=== PATIENT | female | born 1950 | race Caucasian/White ===

== ENCOUNTER 2024-01-17 07:55 | Outpatient (OUT) | payer MEDICARE, OTHER, SELFPAY ==
--- NOTE | 2024-01-17 08:59 | CA_ITS ---
Patient Name: JASON SAGASTUME MR#: [id number] : 1950 Exam Date: 01/17/2024 Ordering Doctor: DR MERCED HENDERSON M.D. ECHOCARDIOGRAM REPORT PROCEDURE: CA ECHO DOPPLER COMPLETE INDICATIONS: Shortness of breath COMPARISON: None. DESCRIPTION: COMPLETE ECHOCARDIOGRAM Real-time transthoracic echocardiography with 2D, M-mode, spectral and color flow Doppler performed. QUALITY: Technical quality was good. LEFT VENTRICLE: Normal chamber size. Mild concentric left ventricular hypertrophy. LV EF: Global left ventricular systolic function is normal. Calculated left ventricular ejection fraction is 55%. No regional wall motion abnormalities. DIASTOLIC: Normal diastolic function. ATRIAL SEPTUM: Inadequately seen. LEFT ATRIUM: Mild dilatation. RIGHT ATRIUM: Mild dilatation. RIGHT VENTRICLE: Normal chamber size. Normal right ventricular systolic function. TRICUSPID VALVE: Normal mobility and thickness. No stenosis with trivial regurgitation. No evidence of pulmonary hypertension. RVSP 18mmHg MITRAL VALVE: Normal mobility and thickness. No evidence of mitral valve stenosis. There is no mitral annular calcification. Mild mitral regurgitation. AORTIC VALVE: Normal trileaflet appearance. Mildly calcified aortic valve. Normal leaflet mobility. No evidence of aortic valve stenosis. No aortic regurgitation. AORTIC ROOT: Normal diameter and appearance. PULMONIC VALVE: Normal thickness and mobility. No stenosis. Trivial regurgitation. PERICARDIUM: An anterior fat pad is seen. IVC: Collapses with inspirations. Normal size. CONCLUSION: 1. Global left ventricular systolic function is normal; visually estimated ejection fraction is 55 to 60% 2. Normal right ventricular size and systolic function 3. Mildly increased left ventricular wall thickness 4. Normal diastolic function 5. Biatrial enlargement 6. Mild mitral regurgitation Adult Echocardiography Procedure Report Left Ventricle LVEDD (3.7 - 5.6 cm): 4.65 cm LVESD (2.2 - 4.0 cm): 3.34 cm LVIVS thickness (0.6 - 1.2 cm): 1.36 cm LVPW thickness (0.5 - 1.0 cm): 1.18 cm e': 0.13 m/s E - e': 8.13 LVOT Max Gradient: 5.75 mm[Hg] LVOT Area (cm2): 1.20 m/s Peak Velocity (LVOT): 1.20 m/s Mean Velocity (LVOT): 0.81 m/s LVOT Diameter 1.95 cm Left Ventricular Ejection Fraction: 54.89 % Left Atrium LA Volume Index (2D A2C): 43.40 ml/m2 Left Atrium Systolic Dimension: 3.96 cm Mitral Valve MV E to A Ratio: 1.18 Mitral Valve A-Wave Peak Velocity: 0.91 m/s Mitral Valve E-Wave Peak Velocity: 1.08 m/s Right Ventricle RV Internal Diastolic Dimension: 3.69 cm Aorta AO Root Diam: 3.02 cm Ascending Ao Diam: 2.95 cm Aortic Valve AoV Area (Peak Valerio): 2.38 cm2, 2.38 cm2 AoV Area (VTI): 2.20 cm2, 2.20 cm2 Peak Velocity(Antegrade Flow): 1.50 m/s Peak Gradient(Antegrade Flow): 8.95 mm[Hg] Mean Velocity(Antegrade Flow): 1.05 m/s Mean Gradient(Antegrade Flow): 4.93 mm[Hg] Velocity Time Integral: 40.68 cm Tricuspid Valve Peak Velocity (Regurgitant Flow): 1.90 m/s, 1.91 m/s, 1.54 m/s Pulmonic Valve Mean Gradient: 2.33 mm[Hg], 2.17 mm[Hg] Mean Velocity: 0.72 m/s, 0.69 m/s Peak Velocity: 0.97 m/s Peak Gradient: 3.74 mm[Hg], 3.74 mm[Hg] Right Atrium Right Atrium Systolic Pressure: 61.78 ml, 61.78 ml Dictated by: Jami Angel M.D. on 01/19/2024 at 11:23 Approved by: Jami Angel M.D. on 01/19/2024 at 11:26
== END 2024-01-17 07:56 | disposition home or self-care (01) ==
LOC: CARD 07:56
PROVIDERS: PCP Nurse Practitioner; Visit Provider Internal Medicine Interventional Cardiology
DX: R06.02 Shortness of breath (principal)
CPT/HCPCS: 93306

== ENCOUNTER 2024-02-22 07:44 | Outpatient (OUT) | payer MEDICARE, OTHER, SELFPAY ==
--- NOTE | 2024-02-22 07:30 | NM_ITS ---
Patient Name: JASON SAGASTUME MR#: [id number] : 1950 Exam Date: 02/22/2024 Ordering Doctor: DR MERCED HENDERSON M.D. RADIOLOGY REPORT PROCEDURE: NM DOUGLAS PERF SPECT REST STR COMPARISON: None. INDICATIONS: DYSPNEA TECHNIQUE: Exam Description: Stress/Rest one day protocol gated SPECT Rest Imagin.3 mCi Tc-99m Cardiolite IV on 02/22/2024 Stress Imaging 30.6 mCi Tc-99m Cardiolite IV on 02/22/2024 Exercise Protocol: 0.4 mg Lexiscan given IV Heart Rate (bpm): Rest: 59 Max: 91 PMHR: 61 Blood Pressure: Rest: 124/68 Max: 124/68 Symptoms: Rest and peak stress ECG findings were pending and the exercise portion of the study was pending per attending physician Dr. MALLORY . For more details please see separate cardiac stress test report. FINDINGS: QUALITY OF STUDY: Excellent. PERFUSION DEFECT: None. LOCATION: N/A SIZE: N/A. SEVERITY: N/A. TYPE: N/A. WALL MOTION: Normal. LV SIZE: Normal. 63 mL. TID / TCD: None; 0.7 LVEF: Normal. Calculated EF 84%. SUMMARY: Myocardial perfusion imaging study is NORMAL. CONCLUSION: 1. Normal nuclear medicine myocardial perfusion scan. Dictated by: Genaro Garcia M.D. on 02/23/2024 at 10:53 Approved by: Genaro Garcia M.D. on 02/23/2024 at 10:55
--- NOTE | 2024-02-22 07:44 | PCN_ITS ---
CARDIAC STRESS TEST Requesting Physician:? Procedure Date:? 02/22/2024 INDICATION:? Dyspnea on exertion. METHODS:? After risks, benefits, and alternatives were explained, written informed consent was obtained.? The patient was brought to the stress lab in a resting and fasting state. She underwent a pharmacological stress test; Lexiscan 0.4 mg was infused intravenously.? She was monitored for the standard duration and transferred to the Radiology Department for nuclear imaging. There were no complications. FINDINGS: HEMODYNAMICS: Resting heart rate was 59 beats per minute, increasing to a maximum of 91 beats per minute.? Resting blood pressure was 124/68, decreasing to 108/60. ELECTROCARDIOGRAPHY:? Rest EKG:? Sinus rhythm, poor R-wave progression, abnormal EKG. During infusion and recovery:? No significant ST-T wave changes noted, infrequent premature atrial contractions seen. FINAL IMPRESSIONS: 1.? No ischemic EKG changes seen on Lexiscan pharmacological stress test. 2.? Nuclear images are to be read, interpreted and reported in a separate dictation. [facility]
--- OUTSIDE RECORDS SUMMARY | 2024-02-22 07:47 | XMS_ITS | CCD ---
Author Organization [facility] Care Team Providers Care Driller'S Assistant Name Role Phone CLAUDIA, DR CONNIE Saez Primary Care Unavailable TAYLOR, DR CONNIE Saez Admitting Unavailable TAYLOR, DR CONNIE Saez Attending Unavailable TAYLOR, DR CONNIE Saez Consulting Unavailable TAYLOR, DR CONNIE Saez Primary Care Unavailable BRITTANY, ANGELINE Consulting Unavailable BRITTANY, ANGELINE Admitting Unavailable BRITTANY, ANGELINE Attending Unavailable TAYLOR, DR CONNIE Saez Consulting Unavailable CLAUDIA, DR CONNIE Saez Admitting Unavailable TAYLOR, DR CONNIE Saez Attending Unavailable TAYLOR, DR CONNIE Saez Primary Care Unavailable ZIEBER, DR MITCHEL Jasso Consulting Unavailable TAYLOR, DR CONNIE aSez Primary Care Unavailable HAY, DR URBINA Admitting Unavailable HAY, DR URBINA Attending Unavailable HAY, DR URBINA Consulting Unavailable NICOLÁS, DR DAVID Jasso Consulting Unavailable CLAUDIA, DR CONNIE Saez Primary Care Unavailable MONZON, DR DAVID Jasso Admitting Unavailable MONZON, DR DAVID Jasso Attending Unavailable TAYLOR, DR CONNIE Saez Primary Care Unavailable MISC, DR PATEL Attending Unavailable MISC, DR PATEL Admitting Unavailable CLAUDIA, DR CONNIE Saez Primary Care Unavailable TAYLOR, DR CONNIE Saez Admitting Unavailable TAYLOR, DR CONNIE Saez Attending Unavailable TAYLOR, DR CONNIE Saez Consulting Unavailable TAYLOR, DR CONNIE Saez Primary Care Unavailable TAYLOR, DR CONNIE Saez Admitting Unavailable TAYLOR, DR CONNIE Saez Attending Unavailable TAYLOR, DR CONNIE Saez Consulting Unavailable SYLVIA, DR MARS Walters Consulting Unavailable CLAUDIA, DR CONNIE Saez Primary Care Unavailable CLAUDIA, DR CONNIE Saez Admitting Unavailable CLAUDIA, DR CONNIE Saez Attending Unavailable TAYLOR, DR CONNIE Saez Consulting Unavailable Toña Slaughter Unavailable Marko Flores Unavailable MD Connie Taylor Primary Care Provider MD Marko Flores Attending Provider Marko Flores Attending Unavailable Marko Flores Admitting Unavailable Connie Taylor Primary Care Unavailable Connie Taylor Primary Care Unavailable Tanvir Ron Attending Unavailable Tanvir Ron Admitting Unavailable MD Connie Taylor Primary Care Provider MD Tanvir Ron Attending Provider [phone] Akira, Livier L Referring Unavailable Akira, Livier L Attending Unavailable Akira, Livier L Admitting Unavailable Akira, Livier L Attending Unavailable Akira, Livier L Admitting Unavailable Akira, Livier L Attending Unavailable Akira, Livier L Attending Unavailable Akira, Livier L Admitting Unavailable Akira, Livier L Referring Unavailable Akira, Livier L Attending Unavailable Akira, Livier L Referring Unavailable Akira, Livier L Attending Unavailable Akira, Livier L Admitting Unavailable MOUKAMERCED MCKINNEY Attending Unavailable Allergies Allergy Classification Reported Allergen(s) Allergy Type Date of Onset Reaction(s) Facility (1 source) Aspirin Drug Allergy 11-26-20 15 [facility] Repository (4 sources) Penicillins; Translations: [PENICILLINS] Drug allergy (disorder) 03-17-20 14 Unknown Reaction [facility] Repository (1 source) Sulfonamides (Antibiotic) Drug allergy (disorder) 03-17-20 14 [facility] Repository (2 sources) Penicillin V Drug Allergy Unknown [facility] Other (2 sources) Sulfamethoxazole Drug Allergy Unknown [facility] Other (1 source) Penicillins (Antibiotic) Propensity to adverse reactions rash [facility] Other (1 source) Sulfonamides (Antibiotic) Propensity to adverse reactions hives [facility] Other (4 sources) Sulfonamides (Antibiotic); Translations: [Sulfa (Sulfonamide Antibiotics)] Allergy to substance 09-10-20 Unknown Reaction [facility] (1 source) Penicillins Drug allergy (disorder) 12-14-19 23 [facility] Repository (1 source) Adhesive Tape; Translations: [Tape] Propensity to adverse reactions (disorder) [facility] Repository (1 source) Penicillin; Translations: [penicillin] Drug Allergy [facility] Repository (1 source) Sulfonamides (Antibiotic); Translations: [sulfa drugs] Propensity to adverse reactions (disorder) [facility] Repository (1 source) Latex; Translations: [LATEX] Propensity to adverse reactions to drug (disorder) 09-10-20 [facility] Repository Medications Current Medications Medication Drug Class(es) Dates Sig (Normalized) Sig (Original) [id number] 200 actuat albuterol 0.09 mg/actuat metered dose inhaler (3 sources) beta2-Adrenergic Agonist Start: 11-24-2018 take 2 puff(s) by inhalation every four to six hours as needed ProAir HFA 108 (90 Base) MCG/ACT 2 puffs as needed Inhalation every 4-6 hrs Oct, Active amLODIPine 10 mg oral tablet (5 sources) Dihydropyridine Calcium Channel Suzette Start: 12-14-2022 take 10 mg by mouth once daily Amlodipine Active 10 MG PO Daily December 14, 2022 1:00am take 1 tablet by elke th every twenty-four hours amLODIPine Besylate 10 MG 1 tablet Orall y Once a day Active atorvastatin 20 mg oral tablet (5 sources) HMG-CoA Reductase Inhibitor Start: 12-14-2022 take 20 mg by mouth once daily Atorvastatin Active 20 MG PO Daily December 14, 2022 1:00am take 1 tablet by elke th every twenty-four hours Atorvastatin Calcium 20 MG 1 tablet Oral ly Once a day Active furosemide 20 mg oral tablet (5 sources) Loop Diuretic Start: 12-14-2022 take 20 mg by mouth once daily Furosemide Active 20 MG PO Daily December 14, 2022 1:00am take 1 tablet by elke th every twenty-four hours Furosemide 20 MG 1 tablet Orally Once a day Active hydroCHLOROthiazide 12.5 mg oral tablet (5 sources) Thiazide Diuretic Start: 12-14-2022 take 12.5 mg by mouth once daily Hydrochlorothiazide Active 12.5 MG PO Daily December 14, 2022 1:00am take 1 capsule by mo uth every twenty-four hours hydroCHLOROthiazide 12.5 MG 1 capsule in the morning Orally Once a day Active hydroCHLOROthiazide 12.5 mg / losartan potassium 50 mg oral tablet (3 sources) Thiazide Diuretic, Angiotensin 2 Receptor Suzette take 1 tablet by mouth every twenty-four hours Losartan Potassium-HCTZ 50-12.5 MG 1 tablet Orally Once a day Active losartan potassium 50 mg oral tablet (2 sources) Angiotensin 2 Receptor Suzette Start: 2022 take 50 mg by mouth once daily Losartan Active 50 MG PO Daily December 14, 2022 1:00am 24 hr metFORMIN hydrochloride 500 mg extended release oral tablet (5 sources) Biguanide Start: 2022 take 500 mg by mouth once daily Metformin Active 500 MG PO Daily December 14, 2022 1:00am take 1 tablet by elke th every twenty-four hours metFORMIN HCl 500 MG 1 tablet with a meal Orally Once a day Active 24 hr metoprolol succinate 50 mg extended release oral tablet (5 sources) beta-Adrenergic Suzette Start: 12-14-2022 take 50 mg by mouth once daily Metoprolol Succinate Active 50 MG PO Daily December 14, 2022 1:00am take 1 tablet by mouth once pritesh y Toprol XL 50 MG 1 tablet Orally Once a day for 30 day(s) Active SITagliptin 100 mg oral tablet (5 sources) Dipeptidyl Peptidase 4 Inhibitor Start: 12-14-2022 take 1 tablet by mouth once daily Sitagliptin Phosphate (Januvia) 100 mg tablet Active 100 MG PO Daily December 14, 2022 1:00am take 1 tablet by elke th every twenty-four hours Januvia 100 MG 1 tablet Orally Once a day Active Problems Active Problems Problem Classification Problem Date Documented Date Episodic/Chronic Abdominal pain (4 sources) Unspecified abdominal pain; Translations: [UNSPECIFIED ABDOMINAL PAIN] Onset: 12-24-2021 Episodic Calculus of urinary tract (1 source) Unspecified renal colic; Translations: [UNSPECIFIED RENAL COLIC] Onset: 12-26-2021 Episodic Cardiac and circulatory congenital anomalies (2 sources) Congenital insufficiency of aortic valve; Translations: [Congenital insufficiency of aortic valve] Onset: 01-10-2024 Chronic Congestive heart failure; nonhypertensive (1 source) Heart failure, unspecified; Translations: [HEART FAILURE UNSPECIFIED] Onset: 09-15-2021 Chronic Coronary atherosclerosis and other heart disease (2 sources) Atherosclerotic heart disease of [place] coronary artery without angina pectoris; Translations: [Atherosclerotic heart disease of [place] coronary artery without angina pectoris] Onset: 01-10-2024 Chronic Diabetes mellitus with complications (1 source) Type 2 diabetes mellitus with hyperglycemia; Translations: [TYPE 2 DM W/HYPERGLYCEMIA] Onset: 09-15-2021 Chronic Disorders of lipid metabolism (2 sources) Mixed hyperlipidemia; Translations: [Mixed hyperlipidemia] Onset: 09-10-2022 Chronic Diverticulosis and diverticulitis (3 sources) Diverticular disease; Translations: [Diverticulosis of intestine, part unspecified, without perforation or abscess without bleeding] Chronic Essential hypertension (6 sources) Essential (primary) hypertension; Translations: [ESSENTIAL PRIMARY HYPERTENSION] Onset: 05-08-2021 Chronic Other and unspecified benign neoplasm (3 sources) Polyp of colon; Translations: [Polyp of colon] Episodic Other and unspecified benign neoplasm (1 source) History of polyp of colon; Translations: [Personal history of colonic polyps] Episodic Other and unspecified benign neoplasm (1 source) Personal history of colonic polyps Episodic Other lower respiratory disease (2 sources) Shortness of breath; Translations: [Shortness of breath] Onset: 01-10-2024 Episodic Other nutritional; endocrine; and metabolic disorders (3 sources) Body mass index 30+ - obesity; Translations: [Body mass index (BMI) 30.0-30.9, adult] Chronic Rehabilitation care; fitting of prostheses; and adjustment of devices (3 sources) Follow-up status; Translations: [Encounter for fitting and adjustment of other specified devices] Chronic Sprains and strains (5 sources) Unspecified sprain of left wrist, subsequent encounter; Translations: [Strain of unspecified muscle, fascia and tendon at wrist and hand level, left hand, subsequent encounter] Onset: 12-09-2021 Episodic Unclassified (2 sources) CONTACT W/AND (SUSP) EXPOS COVID-19; Translations: [CONTACT W/AND (SUSP) EXPOS COVID-19] Onset: 08-15-2021 Unclassified (1 source) Encounter for screening for malignant neoplasm of colon; Translations: [Encounter for screening for malignant neoplasm of colon] Onset: 12-14-2022 Viral infection (4 sources) COVID-19; Translations: [COVID-19] Onset: 08-18-2021 Past or Other Problems Problem Classification Problem Date Documented Da te Episodic/Chronic Genitourinary symptoms and ill-defined conditions (3 sources) Other polyuria; Translations: [OTHER POLYURIA] Onset: 09-13-2021 Episodic Immunizations and screening for infectious disease (1 source) Encounter for immunization; Translations: [ENCOUNTER FOR IMMUNIZATION] Onset: 08-29-2021 Episodic Malaise and fatigue (1 source) Other fatigue; Translations: [OTHER FATIGUE] Onset: 05-13-2021 Episodic Other aftercare (1 source) Other halfway (current) drug therapy; Translations: [OTH SIGNAL MANAGER CURRENT DRUG THERAPY] Onset: 09-15-2021 Episodic Other aftercare (1 source) terminal make up operator (current) use of oral hypoglycemic drugs; Translations: [INTERMEDIATE USE ORAL HYPOGLYCEMIC DX] Onset: 09-15-2021 Episodic Other connective tissue disease (2 sources) Pain in left hand Onset: 10-29-2021 Resolved: 12-03-2021 Episodic Other injuries and conditions due to external causes (2 sources) Other injury of unspecified body region, initial encounter Onset: 10-29-2021 Resolved: 12-03-2021 Episodic Other lower respiratory disease (3 sources) Cough; Translations: [COUGH] Onset: 08-13-2021 Episodic Other lower respiratory disease (1 source) Other nonspecific abnormal finding of lung field; Translations: [OTH NONSPECIFIC ABN FIND LNG FIELD] Onset: 08-15-2021 Episodic Other lower respiratory disease (4 sources) Other forms of dyspnea; Translations: [OTHER FORMS OF DYSPNEA] Onset: 05-30-2021 Episodic Other non-traumatic joint disorders (2 sources) Pain in left wrist Onset: 10-29-2021 Resolved: 12-03-2021 Episodic Unclassified (1 source) CONTACT W/AND (SUSP) EXPOS COVID-19; Translations: [CONTACT W/AND (SUSP) EXPOS COVID-19] Onset: 08-11-2021 Results Test Name Value Interpretation Reference Range Facility Orders Onlyon 01-25-2024 Orders Only [id number] Daya Ramsay 1950 F Date Provider Department Center 01/25/2024 LIZBET ASHBY Family History Problem Relation Age of Onset Aortic aneurysm Father Other Sister Aortic aneurysm Paternal Grandmother Other Son Family Status - Relation Status Age at Father Sister Paternal Grandmother Son Other Normal [facility] Echocardiographyon Echocardiography [id number] #1.00TIFF Normal [facility] Office Visiton 01-10-2024 Follow-up visit [id number] Daya Ramsay 1950 F Date Provider Department Center 01/10/2024 367-MERCED HENDERSON DEBORAH Gibbs Family History Problem Relation Age of Onset Aortic aneurysm Father Other Sister Aortic aneurysm Paternal Grandmother Other Son Family Status - Relation Status Age at Father Sister Paternal Grandmother Son Other Level of Service:81792 SD OFFICE/OUTPATIENT ESTABLISHED MOD MDM 30 MIN Normal [facility] Reminderson 11-08-2023 Reminders - From: Livier Dockery To: [facility] - Clinical; Sent: 11/08/2023 08:18:23 EST Show up: 11/08/2023 08:19:00 EST Subject: Ambulatory Reminder Due Date/Time: 11/09/2023 08:18:00 EST Mammogram is normal Results: Date Result Type Result Name 11/06/2023 11:15 Radiology MA Mamm Screen w/CAD if perf and 3D Daniel pt notified mammogram was normal Normal [facility] Reminders - From: Livier Dockery To: [facility] - Clinical; Sent: 11/08/2023 08:22:02 EST Show up: 11/08/2023 08:22:00 EST Subject: Ambulatory Reminder Due Date/Time: 11/09/2023 08:21:00 EST Let Daya know her dexa scan showed osteoporosis. I will send fosamax to pharmacy of choice. Just let me know where she wants it sent. Thanks Results: Date Result Type Result Name 11/07/2023 13:01 Radiology BD Bone Density DEXA - From: Birdie Florentino ([facility] - Clinical) To: Livier Dockery; Sent: 11/08/2023 11:48:02 EST Show up: 11/08/2023 11:47:00 EST Subject: RE: Ambulatory Reminder pt notified of message below, she would like medication sent to [facility] Destini Cardozo [facility] BD Bone Density DEXAon 11-07 BD Bone Density DEXA Exam Date/Time: 11/05/2023 10:45 EST Reason for Exam: E28.39;Post menopausal Report IMPRESSION: The bone density may measurements of the right femoral neck indicate OSTEOPOROSIS. This places the patient at a significant increased risk for fracture. Recommend follow-up exam in one year, sooner as clinically necessary. CLINICAL HISTORY: bone density evaluation COMPARISON: NONE. FINDINGS: Bone density measurements for the Left femoral neck are BMD 0.750g/cm2 Tscore -2.1 Age-matched Z score -0.8, Osteopenia Bone density measurements for the Right femoral neck are BMD 0.666g/cm2 Tscore -2.5 Age-matched Z score -1.3, Osteoporosis Bone density measurements for the Lumbar spine are BMD 0.980g/cm2 Tscore -1.7 Age-matched Z score -0.7, Osteopenia FRAX SCORE Not calculated due to a T score of less than -2.5 Note World Health Organization definition of osteoporosis and osteopenia for women: Normal = T score at or above -1.0 SD Osteopenia = T score between -1.0 and -2.5 SD Osteoporosis = T score at or below -2.5 SD Treatment recommendations per The Bone Health and Osteoporosis Foundation (BHOF): Consider initiating pharmacologic treatment in postmenopausal women and men \X2265\ 50 years of age who have the following: \X2013\Primary fracture prevention: \X25CB\T-score \X2264\ \X2212\ 2.5 at the femoral neck, total hip, lumbar spine, 33% radius (some uncertainty with existing data) by DXA. \X25CB\Low bone mass (osteopenia: T-score between \X2212\ 1.0 and \X2212\ 2.5) at the femoral neck or total hip by DXA with a 10-year hip fracture risk \X2265\ 3% or a 10-year major osteoporosis-related fracture risk \X2265\ 20% (i.e., clinical vertebral, hip, forearm, or proximal humerus) based on the US-adapted FRAX\XAE\ Report model. \X2013\Secondary fracture prevention: \X25CB\Fracture of the hip or vertebra regardless of BMD [4, 5]. \X25CB\Fracture of proximal humerus, pelvis, or distal forearm in persons with low bone mass (osteopenia: T-score between \X2212\ 1.0 and \X2212\ 2.5). The decision to treat should be individualized in persons with a fracture of the proximal humerus, pelvis, or distal forearm who do not have osteopenia or low BMD [12, 13]. Ordering Provider: Livier Champion FINAL REPORT Dictated: 11/07/2023 12:58 pm Loyd Martinez MD, V. Signed (Electronic Signature): 11/07/2023 12:58 pm Signed by: Loyd Martinez MD, V. Transcribed by: DAWN Technologist: BARBIE Cardozo [facility] MA Mamm Screen w/CAD if perf and 3D Bilon 11-06-2023 MA Mamm Screen w/CAD if perf and 3D Daniel Exam Date/Time: 11/05/2023 10:53 EST Reason for Exam: Z12.31;Screening Report IMPRESSION: BIRADS 1 NEGATIVE, NORMAL INTERVAL FOLLOW-UP Follow-up: 12 MONTH RECALL Density: Scattered tissue. Vascular calcifications: Absent. EXAM: MA Mamm Screen w/CAD if perf and 3D Daniel DATE: 11/05/2023 10:30 AM CLINICAL HISTORY: Screening, Z12.31. COMPARISONS: 10/20/2022, 10/17/2021, 11/10/2019, and 03/01/2013. TECHNIQUE: Routine full-field digital mammograms and 3D breast tomosynthesis of both breasts were obtained. FINDINGS: There are no developing masses, suspicious microcalcifications, or areas of architectural distortion identified on the current study. No significant changes are identified from the prior studies, given differences in technique and positioning. Dense Breast: No. CAD analysis was performed and used in the interpretation. Board Certified Radiologists. Accredited by the ACR and FDA. MAMMOGRAPHY IS VERY IMPORTANT TO YOUR HEALTH. THE CURRENT [employer] GUIDELINES RECOMMENDS ANNUAL MAMMOGRAPHY BEGINNING AT AGE 40. THIS FACILITY UTILIZES A REMINDER SYSTEM TO ENSURE ALL PATIENTS RECEIVE REMINDER NOTIFICATIONS AT THE APPROPRIATE TIME BASED ON THE RECOMMENDATIONS OF THIS EXAM. Report Ordering Provider: Livier Champion FINAL REPORT Dictated: 11/06/2023 11:12 am Lalit Walker MD Signed (Electronic Signature): 11/06/2023 11:12 am Signed by: Lalit Walker MD Transcribed by: DAWN Technologist: KARIS Assessment: BI-RADS Category 1-Negative Recommendation: Normal interval follow-up Normal [facility] Consent for Treatmenton 12-0 Consent for Treatment [id number] #1.00TIFF Normal [facility] Family Medicine Office/Clini c Noteon 10-19-2023 Family Medicine Office/Clinic Note Chief Complaint Subsequent Medicare Wellness Visit Review of Systems PHQ Score Initial Depression Screen Score: 0 SCORE Physical Exam Vitals & Measurements HR: 67(Peripheral) BP: 130/70 SpO2: 95% HT: 169 cm HT: 67 in WT: 88.1 kg WT: 193.82 lb BMI: 30.85 Assessment/Plan 1. Annual visit for general adult medical examination without abnormal findings (Z00.00: Encounter for general adult medical examination without abnormal findings) The patient was given a customized and personalized print out of all the current AHRQ USPSTF?s recommendations for preventative services and all current CDC recommended immunizations, relevant risk recommendations and the following patient brochures were given. Reviewed Medicare preventative services checklist. CDC-Falls Prevention and home safety screening reviewed. Patient denies any falls in last 12 months, voices no worry about falling, exhibits no problems with sitting, standing, or ambulation. Pt voices understanding with keeping walk way area free of clutter to prevent tripping and/or falling. [place] Advance Directives reviewed, does not wish to receive further information at this time. Patient denies any problems with ADL?s and Instrumental ADL?s. Cognitive screening completed with memory and clock face drawing, no deficits noted. Immunization Record reviewed with the patient. Discussed Shingrix vaccine with educational handout and availability. COVID vaccines have been administered, immunization record is up to date. Allergies and medications reviewed and up to date. Patient denies concerns with taking medication as prescribed, reviewed OTC medications with patient, medication list up to date. Blood tests were reviewed: are up to date Colonoscopy up to date. DEXA scan and Mammogram are scheduled. Reviewed concerns with bladder control over past 6 months with no concerns. Reviewed pain symptoms with patient: pain symptoms denied. Reviewed all outside providers that patient follows. Last visit summary notes available in chart and/or have been requested. Follow up scheduled, follow up not yet scheduled AWV has been scheduled, to be scheduled at later time Medicare provides yearly screening for alcohol and depression concerns. This is completed during our Medicare Wellness visit for those who do not have a current diagnosis of depression or concerns with alcohol use. I spent a total of 17 minutes on this date of service which included preparing to see the patient, face to face patient care, completing clinical documentation, obtaining and/or reviewing separately obtained history, counseling and educating the patient with handouts. Explanations were provided with reviewing questionnaires. AUDIT risk assessment screening completed, risk score 0, with patient denying concerns with use. Completed PHQ-2 risk assessment for depression with risk score 0, negative findings. Patient has been reminded to notify the provider if there would be a change or concerns with symptoms with fear, unable to sleep, worrying too much or feeling down and/or sad with lost of interest with daily activities. Will continue to monitor with screening yearly during Medicare wellness visits. 2. Ovarian failure (E28.39: Other primary ovarian failure) Reviewed recommended bone mineral density testing for women who are 65 years of age or older. Educational handout for Bone Health reviewed and provided to the patient during today's Medicare Wellness visit. Medicare recommends testing every 5 years if results are WNL and every 2 years if results shows low bone mass. This is a deterioration of bone structure and can increase the risk of a fracture with falls. Eating a well-balanced diet with plenty of Calcium and Vitamin D will help to protect your bones. Daily weight-bearing physical activity can help build strong bones, improve bone amounts, and may reduce the risk of weakening of bones (Osteoporosis) later in life. Dexa scan ordered and scheduled. 3. Type 2 diabetes mellitus (E11.9: Type 2 diabetes mellitus without complications) Patient is compliant on current DM medications: Metformin and Januvia. Currently on an ARB therapy, does monitors BS at home: DM stoplight handout reviewed with s/s to monitor for and report to PCP. Discussed ADA dietary recommendations with low carbs and reduce sugar intake. Patient encouraged to increase daily physical activity, adequate water intake and maintain a healthy weight. Pt follows up with PCP with yearly DM foot checks,will be due at next OV. Reminded patient to perform at home foot checks to prevent future complications, wash with soap and water, apply lotion to bilateral feet and in-between toes to prevent dryness and/or cracking. Wear proper fitting shoes and loose fitting socks and/or hose. Follows up with yearly DM eye exams, last visit notes available in chart for review. 4. Hyperlipidemia (E78.5: Hyperlipidemia, unspecified) Reviewed healthy lifestyle with low fat diet and exercise regimen. When you (more content not included)... [facility] Comment on above: Result Comment: Elec tronically Signed By: Livier Dockery\.br\Date and Time Signed: 10/19/23 12:44 EST\.br\Electronically Co-Signed By: Fred Navas\.br\Date and Time Co-Signed: 10/14/23 16:21 EST [place] 10-15-2023 Screens [id number] 9#1.00TIFF [facility] Ambulatory Visit Summaryon 1 12-14-2022 Ambulatory Visit Summary DAYA RAMSAY Oziel :1950 Visit Date:10/14/2023 Ambulatory Visit Instructions Your Diagnosis Annual visit for general adult medical examination without abnormal findings Ovarian failure Type 2 diabetes mellitus Hyperlipidemia Hypertension Cough BMI 30.0-30.9,adult Your Care Team Attending Physician - Livier Dockery Primary Care Physician - Livier Dockery This Is Your Medications List [facility] Prescription (ACCU-CHEK GUIDE TEST STRIP) albuterol amlodipine (amLODIPine 10 mg Tab) atorvastatin (atorvastatin 20 mg Tab) azithromycin (azithromycin 250 mg Tab) benzonatate (benzonatate 200 mg oral capsule) budesonide (Pulmicort Flexhaler 90 mcg/inh inhalation powder) furosemide (furosemide 20 mg Tab) hydrochlorothiazide (hydrochlorothiazide 12.5 mg Tab) loratadine (loratadine 10 mg Tab) losartan (losartan 50 mg Tab) metformin (MetFORMIN (Eqv-Glucophage XR) 500 mg oral tablet, extended release) methylPREDNISolone (Medrol 4 mg Tab) sitagliptin (Januvia 100 mg Tab) Procedures Performed Appendectomy, section, Colonoscopy, Knee, Nasal deviation, bone, Total abdominal colectomy with ileoproctostomy. Discharge Vitals Heart Rate (Peripheral) 67 Blood Pressure 130/70 Height 169 cm Height 67 in Weight 88.1 kg Weight 193.82 lb BMI 30.85 What to do next Scheduled Follow-Up Appointments Wednesday 10:30 AM EST Where: [facility] Wednesday 12:00 PM EST Where: [facility] Mammography You Need to Complete the Following [facility] DEXA, 11/05/23, Routine, Order for Future Visit, Transport Mode: Ambulatory, Reason: Post menopausal, Reason: E28.39, Ovarian failure Normal [facility] Patient Educationon 10-14-20 Patient Education Caregiving Fall Prevention in the Home, Adult Falls can cause injuries and affect people of all ages. There are many simple things that you can do to make your home safe and to help prevent falls. Ask for help when making these changes, if needed. What actions can I take to prevent falls? General instructions ? Use good lighting in all rooms. Replace any light bulbs that burn out, turn on lights if it is dark, and use night-lights. ? Place frequently used items in tylh-dg-kkfxh places. Lower the shelves around your home if necessary. ? Set up furniture so that there are clear paths around it. Avoid moving your furniture around. ? Remove throw rugs and other tripping hazards from the floor. ? Avoid walking on wet floors. ? Fix any uneven floor surfaces. ? Add color or contrast paint or tape to grab bars and handrails in your home. Place contrasting color strips on the first and last steps of staircases. ? When you use a stepladder, make sure that it is completely opened and that the sides and supports are firmly locked. Have someone hold the ladder while you are using it. Do not climb a closed stepladder. ? Know where your pets are when moving through your home. What can I do in the bathroom? ? Keep the floor dry. Immediately clean up any water that is on the floor. ? Remove soap buildup in the tub or shower regularly. ? Use nonskid mats or decals on the floor of the tub or shower. ? Attach bath mats securely with double-sided, nonslip rug tape. ? If you need to sit down while you are in the shower, use a plastic, nonslip stool. ? Install grab bars by the toilet and in the tub and shower. Do not use towel bars as grab bars. What can I do in the bedroom? ? Make sure that a bedside light is easy to reach. ? Do not use oversized bedding that reaches the floor. ? Have a firm chair that has side arms to use for getting dressed. What can I do in the kitchen? ? Clean up any spills right away. ? If you need to reach for something above you, use a sturdy step stool that has a grab bar. ? Keep electrical cables out of the way. ? Do not use floor slovenian or wax that makes floors slippery. If you must use wax, make sure that it is non-skid floor wax. What can I do with my stairs? ? Do not leave any items on the stairs. ? Make sure that you have a light switch at the top and the bottom of the stairs. Have them installed if you do not have them. ? Make sure that there are handrails on both sides of the stairs. Fix handrails that are broken or loose. Make sure that handrails are as long as the staircases. ? Install non-slip stair treads on all stairs in your home. ? Avoid having throw rugs at the top or bottom of stairs, or secure the rugs with carpet tape to prevent them from moving. ? Choose a carpet design that does not hide the edge of steps on the stairs. ? Check any carpeting to make sure that it is firmly attached to the stairs. Fix any carpet that is loose or worn. What can I do on the outside of my home? ? Use bright outdoor lighting. ? Regularly repair the edges of walkways and driveways and fix any cracks. ? Remove high doorway thresholds. ? Trim any shrubbery on the main path into your home. ? Regularly check that handrails are securely fastened and in good repair. Both sides of all steps should have handrails. ? Install guardrails along the edges of any raised decks or porches. ? Clear walkways of debris and clutter, including tools and rocks. ? Have leaves, snow, and ice cleared regularly. ? Use sand or salt on walkways during winter months. ? In the garage, clean up any spills right away, including grease or oil spills. What other actions can I take? ? Wear closed-toe shoes that fit well and support your feet. Wear shoes that have rubber soles or low heels. ? Use mobility aids as needed, such as canes, walkers, scooters, and crutches. ? Review your medicines with your health care provider. Some medicines can cause dizziness or changes in blood pressure, which increase your risk of falling. Talk with your health care provider about other ways that you can decrease your risk of falls. This may include working with a physical therapist or customer service trainer to improve your strength, balance, and endurance. Where to find more information ? Centers for Disease Control and Prevention, STEADI: www.cdc.gov ? National [place] on Aging: www.margaret.nih.gov Contact a health care provider if: ? You are afraid of falling at home. ? You feel weak, drowsy, or dizzy at home. ? You fall at home. Summary ? There are many simple things that you can do to make your home safe and to help prevent falls. ? Ways to make your home safe include removing tripping hazards and installing grab bars in the bathroom. ? Ask for help when making these changes in your home. This information is not intended to replace advice given to you by your health ca (more content not included)... [facility] Consent for Treatmenton 09-29 Consent for Treatment [phone] 31 [id number] #1.00TIFF [facility] Reminderson 10-13-2023 Reminders - From: Livier Dockery To: [facility] - Clinical; Sent: 10/13/2023 14:17:52 EST Show up: 10/13/2023 14:18:00 EST Subject: Ambulatory Reminder Due Date/Time: 10/14/2023 14:17:00 EST Chest x ray negative. does not have pneumonia. is she feeling any better yet? Results: Date Result Type Result Name 10/13/2023 13:56 Radiology XR Chest 2 Views - From: Birdie Florentino (B - Clinical) To: Livier Dockery; Sent: 10/13/2023 15:16:46 EST Show up: 10/13/2023 15:16:00 EST Subject: RE: Ambulatory Reminder pt states yesterday she felt pretty good today she hasn't felt good chest feels tight couldn't stop coughing she has used her daily inhaler and her rescue inhaler. Normal [facility] XR Chest 2 Viewson 3 XR Chest 2 Views Exam Date/Time: 10/13/2023 08:14 EST Reason for Exam: Z00.00;Cough Report IMPRESSION: NO EVIDENCE OF ACTIVE CHEST DISEASE. CLINICAL HISTORY: Cough, Z00.00. COMMENT: The heart is normal in size. There is calcification at the aortic arch. The mediastinum is otherwise unremarkable. There is a calcified granuloma in the right lung laterally. There is eventration of the right diaphragm anteriorly. No infiltration nor pleural effusion is evident. Ordering Provider: Livier Champion FINAL REPORT Dictated: 10/13/2023 1:53 pm Nico Soler M.D. Signed (Electronic Signature): 10/13/2023 1:53 pm Signed by: Nico Soler M.D. Transcribed by: DAWN Technologist: BARBIE Technical Comments Radiation Dose: Ka,r in mGy = na DAP = na Normal [facility] Ambulatory Visit Summaryon 1 12-11-2022 Ambulatory Visit Summary DAYA RAMSAY :1950 Visit Date:10/11/2023 Ambulatory Visit Instructions Your Diagnosis Wellness examination Hypertension Hyperlipidemia Type 2 diabetes mellitus Breast cancer screening by mammogram Cough Wheezing Your Care Team Attending Physician - Livier Dockery Primary Care Physician - Livier Dockery This Is Your Medications List Misc Prescription (ACCU-CHEK GUIDE TEST STRIP) amlodipine (amLODIPine 10 mg Tab) atorvastatin (atorvastatin 20 mg Tab) azithromycin (azithromycin 250 mg Tab) benzonatate (benzonatate 200 mg oral capsule) budesonide (Pulmicort Flexhaler 90 mcg/inh inhalation powder) furosemide (furosemide 20 mg Tab) hydrochlorothiazide (hydrochlorothiazide 12.5 mg Tab) loratadine (loratadine 10 mg Tab) losartan (losartan 50 mg Tab) metformin (MetFORMIN (Eqv-Glucophage XR) 500 mg oral tablet, extended release) methylPREDNISolone (Medrol 4 mg Tab) sitagliptin (Januvia 100 mg Tab) Procedures Performed Colonoscopy. Discharge Vitals Heart Rate (Peripheral) 70 Respiratory Rate 18 Blood Pressure 124/88 Height 170 cm Height 67 in Weight 86.9 kg Weight 191.18 lb BMI 30.07 What to do next Scheduled Follow-Up Appointments 2022 3:30 PM EST Where: [facility] Invalid Interpretation Code Breast cancer screening by mammogram, pp_set_radio logy_subspec ialty, Required & Missing, [facility]\.br\ XR Chest 2 Views, 10/11/23, Routine, Order for future visit, Transport Mode: Ambulatory, Reason: Cough, No, Breast cancer screening by mammogram [facility] Auto Diffon 10-11-2023 Basophils/100 WBC (Bld) 0.5 % Normal 0.0-2.0 F [facility] Comment on above: Order Comment: Order Added by Discern Expert. Performed By: #### 2 643091, 2531639, 6713916, 500626724, 9881902, 6118292, 02389231 ####[facility] [address] [place] [address] Basophils/Leukocytes Auto (Bld) [Pure # fraction] 0.0 E9/L Normal 0.0-0.2 [facility] Comment on above: Order Comment: Order Added by Discern Expert. Performed By: #### 2 278927, 6154408, 8945157, 806477904, 2430200, 4491239, 33229234 ####[facility] [address] [place] [address] Eosinophils/100 WBC (Bld) 2.1 % Normal 0.0-8.0 [facility] Comment on above: Order Comment: Order Added by Discern Expert. Performed By: #### 2 889656, 5195054, 2484756, 628086691, 5583614, 8855849, 10609237 ####[address] [place] [address] Eosinophils/Leukocytes Auto (Bld) [Pure # fraction] 0.2 E9/L Normal 0.0-0.5 [facility] Comment on above: Order Comment: Order Added by Discern Expert. Performed By: #### 2 127958, 1809546, 7657452, 509973135, 9263265, 1706206, 13504357 ####[address] [place] [address] Lymphocytes/100 WBC (Bld) 22.1 % Normal 14.0-50.0 [facility] Comment on above: Order Comment: Order Added by Tosha Expert. Performed By: #### 2 857931, 8669302, 9292565, 004082769, 4949770, 7750210, 81689526 ####[address] [address] Lymphocytes/Leukocytes Auto (Bld) [Pure # fraction] 1.7 E9/L Normal 1.0-4.0 [facility] Comment on above: Order Comment: Order Added by Tosha Expert. Performed By: #### 2 644156, 9789370, 8447173, 300003002, 0677013, 4838664, 80002944 ####[address] [place] [address] Monocytes/100 WBC (Bld) 7.8 % Normal 4.0-14.0 [facility] Comment on above: Order Comment: Order Added by Tosha Expert. Performed By: #### 2 459147, 2347891, 0363867, 287435658, 7558853, 5848607, 20684213 ####[address] [place] [address] Monocytes/Leukocytes Auto (Bld) [Pure # fraction] 0.6 E9/L Normal 0.2-1.0 [facility] Comment on above: Order Comment: Order Added by Discern Expert. Performed By: #### 2 099785, 9298066, 2171180, 894226064, 0113491, 5141632, 24998097 ####[facility] [address] [place] [address] Neutrophils/100 WBC (Bld) 67.5 % Normal 36.0-75.0 [facility] Comment on above: Order Comment: Order Added by Discern Expert. Performed By: #### 2 085109, 2295844, 1680953, 649031206, 0746456, 4346887, 09319188 ####[facility] [address] [place] [address] Neutrophils/Leukocytes Auto (Bld) [Pure # fraction] 5.3 E9/L Normal 2.0-7.5 [facility] Comment on above: Order Comment: Order Added by Discern Expert. Performed By: #### 2 658643, 5471550, 5815631, 831192727, 5776992, 1781647, 73541291 ####[facility] [address] [place] [address] CBC w/ Auto Diffon 3 Erythrocyte distribution width (RBC) [Ratio] 14.5 % High 10.9-14.2 [facility] Comment on above: Performed By: #### 2 155196, 4869530, 6801091, 886385679, 8536877, 0747597, 03594003 ####[facility] [address] [place] [address] Hematocrit (Bld) [Volume fraction] 42.8 % Normal 34.0-46.0 [facility] Comment on above: Performed By: #### 2 325409, 4673564, 6478713, 921720348, 0756976, 1886524, 18343386 ####[facility] [address] [place] [address] Hemoglobin (Bld) [Mass/Vol] 14.2 g/dL Normal 12.0-16.0 [facility] Comment on above: Performed By: #### 2 116370, 8254381, 8068689, 970941761, 1061009, 4930460, 73078386 ####[address] [place] [address] MCH (RBC) [Entitic mass] 29.9 pg Normal 27.0-34.0 [facility] Comment on above: Performed By: #### 2 945598, 2049349, 9756403, 697269692, 9214929, 9532400, 48597681 ####[facility] [address] [place] [address] MCHC (RBC) [Mass/Vol] 33.2 g/dL Normal 31.4-36.0 [facility] Comment on above: Performed By: #### 2 735943, 2992223, 6333801, 555212716, 3030480, 3496479, 80976016 ####[address] [address] MCV (RBC) [Entitic vol] 89.9 fL Normal 80.0-100.0 F [facility] Comment on above: Performed By: #### 2 278043, 9478395, 7969747, 107136551, 3146473, 3266012, 47179849 ####[address] [address] Platelet mean volume (Bld) [Entitic vol] 8.8 fL Normal 6.4-10.8 [facility] Comment on above: Performed By: #### 2 401223, 0140901, 8944577, 930717217, 4861493, 5400498, 17076268 ####[address] [address] Platelets (Bld) [#/Vol] 269.0 E9/L Normal 150.0-500.0 [facility] Comment on above: Performed By: #### 2 803278, 5476997, 9764880, 216700976, 7765545, 4152325, 96825095 ####[facility] [address] [place] [address] RBC (Bld) [#/Vol] 4.8 E12/L Normal 4.3-5.9 [facility] Comment on above: Performed By: #### 2 276978, 9383323, 7849775, 982514837, 9003723, 2611232, 18773444 ####[address] [place] [address] WBC corrected for nucl RBC Auto (Bld) [#/Vol] 7.9 E9/L Normal 4.0-11.0 [facility] Comment on above: Performed By: #### 2 918649, 2185789, 7977659, 349454435, 2360782, 5899767, 71015869 ####[address] [address] CMPon 10-11-2023 Albumin [Mass/Vol] 3.9 g/dL Normal 3.3-5.0 [facility] Comment on above: Performed By: #### 2 756151, 5001130, 8881997, 804529497, 7194011, 5425169, 21570148 ####[address] [address] Albumin/Globulin (S) [Mass conc ratio] 1.4 Normal 1.1-2.2 [facility] Comment on above: Performed By: #### 2 236304, 9259869, 3546793, 578470412, 5035771, 9253050, 90498751 ####[address] [place] [address] ALP [Catalytic activity/Vol] 70 Int._Unit/L Normal 21-98 [facility] Comment on above: Performed By: #### 2 673057, 9072074, 9471948, 956400453, 6427426, 6133471, 31524243 ####[address] [address] ALT No additional P-5'-P [Catalytic activity/Vol] 20 Int._Unit/L Normal 6-46 [facility] Comment on above: Performed By: #### 2 451367, 0188600, 3566677, 839066349, 4312507, 8713063, 21738498 ####[facility] [address] [place] [address] Anion gap [Moles/Vol] 14 mmol/L Normal 6-16 [facility] Comment on above: Performed By: #### 2 405649, 1924533, 7419486, 682585251, 7610038, 8945399, 55420308 ####[facility] [address] [place] [address] AST [Catalytic activity/Vol] 21 Int._Unit/L Normal 5-43 [facility] Comment on above: Performed By: #### 2 119199, 3777347, 3478016, 841210190, 8079892, 4034638, 62130802 ####[facility] [address] [place] [address] Bilirubin [Mass/Vol] 0.5 mg/dL Normal 0.0-1.1 [facility] Comment on above: Performed By: #### 2 648733, 8094117, 3809413, 679648387, 6585187, 4766797, 85207030 ####[facility] [address] [place] [address] Calcium [Mass/Vol] 9.8 mg/dL Normal 8.9-11.1 [facility] Comment on above: Performed By: #### 2 152352, 1609659, 0960527, 565226925, 0074400, 6078675, 46803596 ####[facility] [address] [place] [address] Chloride [Moles/Vol] 104 mmol/L Normal 101-111 [facility] Comment on above: Performed By: #### 2 843509, 6261970, 6648158, 082702874, 5448359, 0874956, 59170398 ####[facility] [address] [place] [address] CO2 [Moles/Vol] 26 mmol/L Normal 21-31 [facility] Comment on above: Performed By: #### 2 007551, 5087757, 6725365, 080548160, 0817176, 5925910, 37321157 ####[facility] [address] [place] [address] Creatinine [Mass/Vol] 0.9 mg/dL Normal 0.5-1.3 [facility] Comment on above: Performed By: #### 2 404385, 8652677, 4109968, 394846521, 8558115, 2811667, 21736161 ####[facility] [address] [place] [address] Globulin (S) [Mass/Vol] 2.7 g/dL Normal 1.4-4.0 [facility] Comment on above: Performed By: #### 2 020696, 2273926, 0284444, 314034345, 5365853, 3526628, 21105252 ####[facility] [address] [place] [address] Glucose [Mass/Vol] 112 mg/dL Normal 55-199 [facility] Comment on above: Result Comment: If t his glucose result represents a fasting glucose, interpretation should refer to the following reference range: 55-99 mg/dL Performed By: #### 2 581758, 7508731, 3142630, 762769756, 4849114, 5900881, 19154399 ####[facility] [address] [place] [address] Potassium [Moles/Vol] 4.5 mmol/L Normal 3.5-5.3 [facility] Comment on above: Performed By: #### 2 687560, 3557252, 6299434, 411891904, 5154018, 4495333, 29187522 ####[facility] [address] [place] [address] Protein [Mass/Vol] 6.6 g/dL Normal 6.0-7.8 [facility] Comment on above: Performed By: #### 2 478254, 7884069, 3462344, 869360893, 3881151, 1977981, 65098253 ####[facility] [address] [place] [address] Sodium [Moles/Vol] 139 mmol/L Normal 135-145 [facility] Comment on above: Performed By: #### 2 627732, 7699570, 9598918, 155797724, 2931005, 0344235, 57678248 ####[facility] [address] [place] [address] Urea nitrogen [Mass/Vol] 27 mg/dL High 5-21 [facility] Comment on above: Performed By: #### 2 026633, 2228966, 5148906, 022079250, 1481679, 1049503, 70275531 ####[facility] [address] [place] [address] Urea nitrogen/Creatinine [Mass ratio] 30 No Units High 10-20 [facility] Comment on above: Performed By: #### 2 627476, 6139156, 2902651, 152030145, 6475618, 1589997, 44733877 ####[facility] [address] [place] [address] Family Medicine Office/Clini c Noteon 10-11-2023 Family Medicine Office/Clinic Note HPI Staff Pt is a 73 yo f presenting to establish care with Livier today. Establish Care: History: Last provider: Claudia Any recent labs: no Health Maintenance UTD: Colonoscopy: Last year [facility] [place] Mammogram: 10/20/22 Pelvic/Pap: Aged out Flu- DUE - refused. Acute: Current issues/complaints: Asthma, Needs mammo ordered. HTN. States her daughter is concerned about a cough, pt says it is daily. Said she coughed up a large green mucosa on Wednesday. Bronchial cough. History of Present Illness pt presents today to establish care/wellness Review of Systems PHQ Score Initial Depression Screen Score: 0 SCORE ROS - Provider Constitutional: no fever, no chills, no sweats, no fatigue Respiratory: no shortness of breath, yes cough, no orthopnea, yes wheezing. Cardiovascular: no chest pain, no palpitations, no edema. Neurologic: no headache, no dizziness, no numbness, no weakness. Physical Exam Vitals & Measurements HR: 70(Peripheral) RR: 18 BP: 124/88 SpO2: 97% HT: 67 in HT: 170 cm WT: 86.9 kg WT: 191.18 lb BMI: 30.07 General: alert, no acute distress ENMT: oral mucosa moist, no pharyngeal erythema or exudate Cardiovascular: regular rate and rhythm, normal peripheral perfusion Respiratory: Lungs expiratory wheezes, respirations non labored lung sounds tight Extremities: no deformity, no trauma Neurological: oriented x 4, LOC appropriate for age, CN II-XII intact, motor strength equal & normal bilaterally, speech normal Assessment/Plan 1. Wellness examination (Z00.00: Encounter for general adult medical examination without abnormal findings) pt presents today to establish care/wellness visit. has not had labs in over a year. will draw labs today. mammogram also ordered. all questions answered. RTC as needed Ordered: azithromycin, = 1 packet(s), Oral, As Directed, as directed on package labeling, X 5 day(s), # 6 tab(s), Refills(s) 0, Pharmacy: [facility]/pharmacy #[id number], 170, cm, 10/11/23 10:43:00 EST, Height/Length Dosing, 86.9, kg, 10/11/23 10:43:00 EST, Weight Dosing benzonatate, 200 mg = 1 cap(s), Oral, TID, X 7 day(s), # 21 cap(s), Refills(s) 0, Pharmacy: [facility]/pharmacy #[id number], 170, cm, 10/11/23 10:43:00 EST, Height/Length Dosing, 86.9, kg, 10/11/23 10:43:00 EST, Weight Dosing budesonide, 1 inh, Inhalation, BID, 1 EA, Refill(s) 11, [facility]/pharmacy #[id number], 170, cm, 10/11/23 10:43:00 EST, Height/Length Dosing, 86.9, kg, 10/11/23 10:43:00 EST, Weight Dosing methylPREDNISolone, = 1 packet(s), Oral, As Directed, as directed on package labeling, X 6 day(s), # 21 tab(s), Refills(s) 0, Pharmacy: [facility]/pharmacy #[id number], 170, cm, 10/11/23 10:43:00 EST, Height/Length Dosing, 86.9, kg, 10/11/23 10:43:00 EST, Weight Dosing CBC w/ Auto Diff Comprehensive Metabolic Panel HgbA1c Lipid Panel MA Mamm Screen w/CAD if perf and 3D Daniel Thyroid Stimulating Hormone 2. Hypertension (I10: Essential (primary) hypertension) BP at goal. pt does not need refills Ordered: azithromycin, = 1 packet(s), Oral, As Directed, as directed on package labeling, X 5 day(s), # 6 tab(s), Refills(s) 0, Pharmacy: [facility]/pharmacy #[id number], 170, cm, 10/11/23 10:43:00 EST, Height/Length Dosing, 86.9, kg, 10/11/23 10:43:00 EST, Weight Dosing benzonatate, 200 mg = 1 cap(s), Oral, TID, X 7 day(s), # 21 cap(s), Refills(s) 0, Pharmacy: [facility]/pharmacy #[id number], 170, cm, 10/11/23 10:43:00 EST, Height/Length Dosing, 86.9, kg, 10/11/23 10:43:00 EST, Weight Dosing budesonide, 1 inh, Inhalation, BID, 1 EA, [id number], cm, 10/11/23 10:43:00 EST, Height/Length Dosing, 86.9, kg, 10/11/23 10:43:00 EST, Weight Dosing methylPREDNISolone, = 1 packet(s), Oral, As Directed, as directed on package labeling, X 6 day(s), # 21 tab(s), Refills(s) 0, Pharmacy: [facility]/pharmacy #[id number], 170, cm, 10/11/23 10:43:00 EST, Height/Length Dosing, 86.9, kg, 10/11/23 10:43:00 EST, Weight Dosing CBC w/ Auto Diff Comprehensive Metabolic Panel HgbA1c Lipid Panel Thyroid Stimulating Hormone 3. Hyperlipidemia (E78.5: Hyperlipidemia, unspecified) lipid panel drawn in office today Ordered: azithromycin, = 1 packet(s), Oral, As Directed, as directed on package labeling, X 5 day(s), # 6 tab(s), Refills(s) 0, [facility] [id number] 170, cm, 10/11/23 10:43:00 EST, Height/Length Dosing, 86.9, kg, 10/11/23 10:43:00 EST, Weight Dosing benzonatate, 200 mg = 1 cap(s), Oral, TID, X 7 day(s), # 21 cap(s), Refills(s) 0, [id number] 170, cm, 10/11/23 10:43:00 EST, Height/Length Dosing, 86.9, kg, 10/11/23 10:43:00 EST, Weight Dosing budesonide, 1 inh, Inhalation, BID, 1 EA, Refill(s) 11, [id number] 170, cm, 10/11/23 10:43:00 EST, Height/Length Dosing, 86.9, kg, 10/11/23 10:43:00 EST, Weight Dosing methylPREDNISolone, = 1 packet(s), Oral, As Directed, as directed on package labeling, X 6 day(s), # 21 tab(s), Refills(s) 0, [id number], 170, cm, 10/11/23 10:43:00 EST, Height/Length Dosing, 86.9, kg, 10/11/23 10:43:00 EST, Weight Dosing CBC w/ Auto Diff (more content not included)... Normal [facility] Comment on above: Result Comment: Elec tronically Signed By: Livier Dockery\.br\Date and Time Signed: 10/11/23 11:17 EST [id number] 10-11-2023 HbA1c (Bld) [Mass fraction] 6.1 % High <=5.9 [facility] Comment on above: Performed By: #### 2 [id number], [id number], 2545240, [id number], [id number], [id number], [id number] ####[facility] [address] [place] [address] Lipid Panelon 10-11-2023 Cholesterol [Mass/Vol] 165 mg/dL Normal 120-200 [facility] Comment on above: Performed By: #### 2 [id number], [id number], 6412509, [id number], [id number], [id number], [id number] ####[facility] [address]N[facility] [address] Cholesterol in HDL [Mass/Vol] 49 mg/dL Invalid Interpretation Code [facility] Comment on above: Result Comment: HDL > or equal to 60 mg/dL: Low cardiovascular risk HDL < 40 mg/dL : High cardiovascular risk Performed By: #### 2 [id number], 3365502, 2527379, [id number], 8167029, 3016561, [id number] ####[facility] [address] AveNun[facility] [address] Cholesterol in LDL [Mass/Vol] 106 mg/dL Normal <=129 [facility] Comment on above: Performed By: #### 2 368271, 5852545, 8140664, [id number], 8723823, 6264768, [id number] ####[facility] [address] [place] [address] Cholesterol in VLDL [Mass/Vol] 15 mg/dL Normal 7-40 [facility] Comment on above: Performed By: #### 2 131904, 7162298, 3291153, [id number], 6566632, 9332736, [id number] ####[facility] [address] AveNun[facility] [address] Triglyceride [Mass/Vol] 77 mg/dL Normal <=149 F [facility] Comment on above: Performed By: #### 2 937129, 1132797, 1806256, [id number], 3753777, 5504404, [id number] ####[facility] [address] [place] [address] TSHon 10-11-2023 TSH Qn 0.30 m[IU]/L Low 0.34-5.60 [facility] Comment on above: Performed By: #### 2 947819, 8200884, 0621884, [id number], 1061289, 6196260, [id number] ####[facility] [address] [place] [address] eGFRon 10-11-2023 GFR/1.73 sq M.predicted among non-blacks MDRD (S/P/Bld) [Vol rate/Area] 68 mL/min/1.73 m2 Normal >=59 [facility] Comment on above: Order Comment: Order added by Discern Expert. Result Comment: Public Health Professor len kidney disease could be indicated at eGFR's of less than 60 mL/min/1.73m2. Kidney failure is indicated at less than 15 mL/min/1.73m2. Performed By: #### 2 730329, 3642641, 9584426, [id number], 8277267, 0299846, [id number] ####[facility] [address] [place] [address] Alanine aminotransferase [En zymatic activity/volume] in Serum or PlasmaOrdered By: Mary Jane Perez on 04-28-2023 ALT [Catalytic activity/Vol] 15 U/L 7-52 [facility] Albumin [Mass/volume] in Ser um or Plasma by Bromocresol green (BCG) dye binding methoOrdered By: Mary Jane Perez on 04-28-2023 Albumin BCG dye [Mass/Vol] 3.9 g/dL 3.5-5.7 [facility] Alkaline phosphatase [Enzyma tic activity/volume] in Serum or PlasmaOrdered By: Mary Jane Perez on 04-28-2023 ALP [Catalytic activity/Vol] 68 U/L 34-104 [facility] Aspartate aminotransferase [ Enzymatic activity/volume] in Serum or PlasmaOrdered By: Mary Jane Perez on 04-28-2023 AST [Catalytic activity/Vol] 15 U/L 13-39 [facility] Basophils Auto (Bld) [#/Vol] Ordered By: Mary Jane Perez on 04-28-2023 Basophils (Bld) [#/Vol] 0.1 10*3/uL 0.0-0.2 [facility] Basophils/100 WBC Auto (Bld) Ordered By: Mary Jane Perez on 04-28-2023 Basophils/100 WBC (Bld) 1.0 % . F [facility] Bilirubin.total [Mass/volume ] in Serum or PlasmaOrdered By: Mary Jane Perez on 04-28-2023 Bilirubin [Mass/Vol] 0.6 mg/dL 0.3-1.0 [facility] Calcium [Mass/volume] in Ser um or PlasmaOrdered By: Mary Jane Perez on 04-28-2023 Calcium [Mass/Vol] 9.3 mg/dL 8.6-10.3 [facility] Carbon dioxide, total [Moles /volume] in Serum or PlasmaOrdered By: Mary Jane Perez on 04-28-2023 CO2 [Moles/Vol] 28.6 mmol/L 21.0-31.0 [facility] Chloride [Moles/volume] in S juan pablo or PlasmaOrdered By: Mary Jane Perez on 04-28-2023 Chloride [Moles/Vol] 106 mmol/L 98-107 [facility] Cholesterol [Mass/volume] in Serum or PlasmaOrdered By: Mary Jane Perez on 04-28-2023 Cholesterol [Mass/Vol] 151 mg/dL 140-200 [facility] Comment on above: Chol less than 200 m g/dl low riskChol 201-239 mg/dl borderline riskChol 240 mg/dl and greater high risk Cholesterol in LDL Calc [Mas s/Vol]Ordered By: Mary Jane Perez on 04-28-2023 Cholesterol in LDL [Mass/Vol] 91 mg/dL 0-100 [facility] Comment on above: LDL ATP III CLASSIFI CATIONLDL less than 100 mg/dL OptimalLDL 100-129 mg/dL Near or above optimalLDL 130-159 mg/dL Borderline highLDL 160-189 mg/dL HighLDL greater than 189 mg/dL Very high Cholesterol in VLDL Calc [Ma ss/Vol]Ordered By: Mary Jane Perez on 04-28-2023 Cholesterol in VLDL [Mass/Vol] 16 mg/dL [facility] Complete Blood Count Auto Di ffon 04-28-2023 Basophils (Bld) [#/Vol] 0.1 10*3/uL Normal 0.0-0.2 [facility] Comment on above: Result Comment: PERF ORMED BY: [place] [address] PATHOLOGIST TOBACCO CHECKOUT CLERK GRIS CANELA M.D. Performed By: #### C BC #### [address] Basophils/100 WBC (Bld) 1.0 % Normal . F [facility] Comment on above: Performed By: #### C BC #### [address] Eosinophils (Bld) [#/Vol] 0.2 10*3/uL Normal 0.0-0.45 [facility] Comment on above: Performed By: #### C BC #### [address] Eosinophils/100 WBC (Bld) 2.5 % Normal . [facility] Comment on above: Performed By: #### C BC #### [address] Erythrocyte distribution width (RBC) [Ratio] 13.9 % Normal 11.9-15.3 [facility] Comment on above: Performed By: #### C BC #### [address] Hematocrit (Bld) [Volume fraction] 39.8 % Normal 34.0-46.4 [facility] Comment on above: Performed By: #### C BC #### [address] Hemoglobin (Bld) [Mass/Vol] 13.3 g/dL Normal 11.8-15.4 [facility] Comment on above: Performed By: #### C BC #### [address] Lymphocytes (Bld) [#/Vol] 1.9 10*3/uL Normal 1.00-4.8 [facility] Comment on above: Performed By: #### C BC #### [address] Lymphocytes/100 WBC (Bld) 27.5 % Normal . [facility] Comment on above: Performed By: #### C BC #### [address] MCH (RBC) [Entitic mass] 29.3 pg Normal 24.7-34.3 [facility] Comment on above: Performed By: #### C BC #### [address] MCV (RBC) [Entitic vol] 87.7 fL Normal 80-100 F [facility] Comment on above: Performed By: #### C BC #### [address] Mean Corpuscular HGB Conc 33.5 g/dL Normal 32.0-35.0 [facility] Comment on above: Performed By: #### C BC #### [address] Monocytes (Bld) [#/Vol] 0.5 10*3/uL Normal 0.0-0.8 [facility] Comment on above: Performed By: #### C BC #### [address] Monocytes/100 WBC (Bld) 7.8 % Normal . F [facility] Comment on above: Performed By: #### C BC #### [address] Neutrophils (Bld) [#/Vol] 4.2 10*3/uL Normal 1.8-7.7 [facility] Comment on above: Performed By: #### C BC #### [address] Neutrophils/100 WBC (Bld) 61.2 % Normal . [facility] Comment on above: Performed By: #### C BC #### [address] NRBC% 0.1 /100{WBC} Normal 0-0.5 [facility] Comment on above: Performed By: #### C BC #### [facility] [address] Platelet mean volume (Bld) [Entitic vol] 8.9 fL Normal 6.3-10.7 [facility] Comment on above: Performed By: #### C BC #### [facility] [address] Platelets (Bld) [#/Vol] 230 10*3/uL Normal 150-450 [facility] Comment on above: Performed By: #### C BC #### [facility] [address] RBC (Bld) [#/Vol] 4.54 10*6/uL Normal 3.60-5.00 [facility] Comment on above: Performed By: #### C BC #### [facility] [address] WBC (Bld) [#/Vol] 6.9 10*3/uL Normal 3.8-11.6 [facility] Comment on above: Performed By: #### C BC #### [address] Comprehensive Metabolic Pane anat 04-28-2023 Albumin [Mass/Vol] 3.9 g/dL Normal 3.5-5.7 [facility] Comment on above: Performed By: #### C MP, LIPID #### [address] Albumin/Globulin [Mass ratio] 2.0 {ratio} Normal [facility] Comment on above: Performed By: #### C MP, LIPID #### [address] ALP [Catalytic activity/Vol] 68 U/L Normal 34-104 [facility] Comment on above: Performed By: #### C MP, LIPID #### [address] ALT [Catalytic activity/Vol] 15 U/L Normal 7-52 [facility] Comment on above: Performed By: #### C MP, LIPID #### [facility] [address] [place] [address] [place] Anion gap [Moles/Vol] 9.4 mmol/L Normal 6.0-15.0 [facility] Comment on above: Performed By: #### C MP, LIPID #### [facility] [address] AST [Catalytic activity/Vol] 15 U/L Normal 13-39 [facility] Comment on above: Performed By: #### C MP, LIPID #### [facility] [address] Bilirubin [Mass/Vol] 0.6 mg/dL Normal 0.3-1.0 [facility] Comment on above: Performed By: #### C MP, LIPID #### [facility] [address] Calcium [Mass/Vol] 9.3 mg/dL Normal 8.6-10.3 [facility] Comment on above: Performed By: #### C MP, LIPID #### [facility] [address] [place] [address] [place] Chloride [Moles/Vol] 106 mmol/L Normal 98-107 [facility] Comment on above: Performed By: #### C MP, LIPID #### [facility] [address] [place] [address] [place] CO2 [Moles/Vol] 28.6 mmol/L Normal 21.0-31.0 [facility] Comment on above: Performed By: #### C MP, LIPID #### [facility] [address] [place] [address] [place] Creatinine [Mass/Vol] 0.89 mg/dL Normal 0.60-1.20 [facility] Comment on above: Performed By: #### C MP, LIPID #### [facility] [address] [place] [address] [place] GFR/1.73 sq M.predicted MDRD (S/P/Bld) [Vol rate/Area] mL/min/{1.73_m2} Normal [facility] Comment on above: Performed By: #### C MP, LIPID #### [facility] [address] Globulin (S) [Mass/Vol] 2.0 g/dL Normal F [facility] Comment on above: Performed By: #### C MP, LIPID #### [facility] [address] Glucose [Mass/Vol] 114 mg/dL High 70-100 [facility] Comment on above: Result Comment: [place] Glucose Reference Range is dependent on time and content of last meal. Glucose of more than 200 mg/dL in a nonstressed, ambulatory subject supports the diagnosis of Diabetes Mellitus. ADA recommended reference range Performed By: #### C MP, LIPID #### [facility] [address] Potassium [Moles/Vol] 4.0 mmol/L Normal 3.5-5.1 [facility] Comment on above: Performed By: #### C MP, LIPID #### [address] Protein [Mass/Vol] 5.9 g/dL Low 6.4-8.9 [facility] Comment on above: Performed By: #### C MP, LIPID #### [address] Sodium [Moles/Vol] 140 mmol/L Normal 136-145 [facility] Comment on above: Performed By: #### C MP, LIPID #### [facility] [address] [place] [address] [place] Urea nitrogen [Mass/Vol] 28 mg/dL High 7-25 [facility] Comment on above: Performed By: #### C MP, LIPID #### [place] [address] [place] Creatinine [Mass/volume] in Serum or PlasmaOrdered By: Mary Jane Perez on 04-28-2023 Creatinine [Mass/Vol] 0.89 mg/dL 0.60-1.20 [facility] Creatinine [Mass/volume] in UrineOrdered By: Tanvir Ron on 04-28-2023 Creatinine (U) [Mass/Vol] 135.0 mg/dL 11.0-20.0 [facility] Eosinophils Auto (Bld) [#/Vo l]Ordered By: Mary Jane Perez on 04-28-2023 Eosinophils (Bld) [#/Vol] 0.2 10*3/uL 0.0-0.45 [facility] Eosinophils/100 WBC Auto (Bl d)Ordered By: Mary Jane Perez on 04-28-2023 Eosinophils/100 WBC (Bld) 2.5 % . [facility] Erythrocyte distribution wid th Auto (RBC) [Ratio]Ordered By: Mary Jane Perez on 04-28-2023 Erythrocyte distribution width (RBC) [Ratio] 13.9 % 11.9-15.3 [facility] Globulin Calc (S) [Mass/Vol] Ordered By: Mary Jane Perez on 04-28-2023 Globulin (S) [Mass/Vol] 2.0 g/dL F [facility] Glucose [Mass/volume] in Ser um or PlasmaOrdered By: Mary Jane Perez on 04-28-2023 Glucose [Mass/Vol] 114 mg/dL 70-100 [facility] Comment on above: ADA recommended refe rence rangeRandom Glucose Reference Range is dependent on time and content of last meal. Glucose of more than 200 mg/dL in a nonstressed, ambulatory subject supports the diagnosis of Diabetes Mellitus. Hematocrit Auto (Bld) [Volum e fraction]Ordered By: Mary Jane Perez on 04-28-2023 Hematocrit (Bld) [Volume fraction] 39.8 % 34.0-46.4 [facility] Hemoglobin [Mass/volume] in BloodOrdered By: Mary Jane Perez on 04-28-2023 Hemoglobin (Bld) [Mass/Vol] 13.3 g/dL 11.8-15.4 [facility] Leukocytes [#/volume] correc laura for nucleated erythrocytes in Blood by Automated counOrdered By: Mary Jane Perez on 04-28-2023 WBC corrected for nucl RBC Auto (Bld) [#/Vol] 6.9 10*3/uL 3.8-11.6 [facility] Lipid Panelon 04-28-2023 Cholesterol [Mass/Vol] 151 mg/dL Normal 140-200 [facility] Comment on above: Result Comment: Chol less than 200 mg/dl low risk Chol 201-239 mg/dl borderline risk Chol 240 mg/dl and greater high risk Performed By: #### C MP, LIPID #### [facility] [address] Cholesterol in HDL [Mass/Vol] 43 mg/dL Normal 35-85 [facility] Comment on above: Result Comment: HDL CHOL ATP-III CLASSIFICATION Cardiovascular Risk HDL > or equal to 60 mg/dL LOW HDL < 40 mg/dL HIGH Performed By: #### C MP, LIPID #### [facility] [address] Cholesterol.total/Lakesha sterol in HDL [Mass ratio] 3.5 {ratio} Normal <5.0 [facility] Comment on above: Result Comment: PERF ORMED BY: [place] [address] PATHOLOGIST TOBACCO CHECKOUT CLERK GRIS CANELA M.D. Performed By: #### C MP, LIPID #### [address] LDL Cholesterol,Calculated 91 mg/dL Normal 0-100 [facility] Comment on above: Result Comment: LDL ATP III CLASSIFICATION LDL less than 100 mg/dL Optimal LDL 100-129 mg/dL Near or above optimal LDL 130-159 mg/dL Borderline high LDL 160-189 mg/dL High LDL greater than 189 mg/dL Very high Performed By: #### C MP, LIPID #### [facility] [address] [place] [address] [place] Triglyceride w/Reflex 83 mg/dL Normal 0-149 [facility] Comment on above: Result Comment: TRIG ATP III CLASSIFICATION TRIG less than 150 mg/dL Normal TRIG 150-199 mg/dL Borderline high TRIG 200-500 mg/dL High TRIG greater than 500 mg/dL Very high Standard traceable to the Center for Disease Conrtrol and Prevention (CDC) test method. Performed By: #### C MP, LIPID #### [facility] [address] [place] [address] [place] VLDL CHOLESTEROL 16 mg/dL Normal [facility] Comment on above: Performed By: #### C MP, LIPID #### [facility] [address] Lymphocytes Auto (Bld) [#/Vo l]Ordered By: Mary Jane Perez on 04-28-2023 Lymphocytes (Bld) [#/Vol] 1.9 10*3/uL 1.00-4.8 [facility] Lymphocytes/100 WBC Auto (Bl d)Ordered By: Mary Jane Perez on 04-28-2023 Lymphocytes/100 WBC (Bld) 27.5 % . [facility] MCH Auto (RBC) [Entitic mass ]Ordered By: Mary Jane Perez on 04-28-2023 MCH (RBC) [Entitic mass] 29.3 pg 24.7-34.3 [facility] MCHC Auto (RBC) [Mass/Vol]Or dered By: Mary Jane Perez on 04-28-2023 MCHC (RBC) [Mass/Vol] 33.5 g/dL 32.0-35.0 [facility] MCV Auto (RBC) [Entitic vol] Ordered By: Mary Jane Perez on 04-28-2023 MCV (RBC) [Entitic vol] 87.7 fL 80-100 [facility] MicroAlb Creat Ratio,Uon Albumin DL <= 20 mg/L (U) [Mass/Vol] 2.8 mg/dL High 0.0-1.8 [facility] Comment on above: Performed By: #### U RMACRERAT, [id number], PHOS #### [facility] [address] Creatinine, Urine (Random) 135.0 mg/dL High 11.0-20.0 [facility] Comment on above: Performed By: #### U RMACRERAT, [id number], PHOS #### [facility] [address] Microalbumin/Creatinine Ratio 20.0 mg/g Normal 0.0-30.0 [facility] Comment on above: Result Comment: 30-3 00 mg/g indicates an increased risk for diabetic nephropathy. Greater than 300 mg/g is consistent with clinical nephropathy. (Am. J. Kidney Disease 1995, 25:107) PERFORMED BY: [place] [address] PATHOLOGIST TOBACCO CHECKOUT CLERK GRIS CANELA M.D. Performed By: #### U RMACRERAT, [id number], PHOS #### [address] Microalbumin [Mass/volume] i n UrineOrdered By: Tanvir Ron on 04-28-2023 Albumin DL <= 20 mg/L (U) [Mass/Vol] 2.8 mg/dL 0.0-1.8 [facility] Monocytes Auto (Bld) [#/Vol] Ordered By: Mary Jane Perez on 04-28-2023 Monocytes (Bld) [#/Vol] 0.5 10*3/uL 0.0-0.8 [facility] Monocytes/100 WBC Auto (Bld) Ordered By: Mary Jane Perez on 04-28-2023 Monocytes/100 WBC (Bld) 7.8 % . F [facility] Neutrophils Auto (Bld) [#/Vo l]Ordered By: Mary Jane Perez on 04-28-2023 Neutrophils (Bld) [#/Vol] 4.2 10*3/uL 1.8-7.7 [facility] Neutrophils/100 WBC Auto (Bl d)Ordered By: Mary Jane Perez on 04-28-2023 Neutrophils/100 WBC (Bld) 61.2 % . [facility] No Panel InformationOrdered By: Mary Jane Perez on 04-28-2023 Estimated GFR (CKD-EPI) > 60.0 mL/Min [facility] Creatinine Clearance (Chem N/A [facility] Nucleated erythrocytes [Pres ence] in Blood by Automated countOrdered By: Mary Jane Perez on 04-28-2023 Nucleated RBC Auto Ql (Bld) 0.1 /100{WBC} 0-0.5 [facility] Phosphate [Mass/volume] in S juan pablo or PlasmaOrdered By: Tanvir Ron on 04-28-2023 Phosphate [Mass/Vol] 3.4 mg/dL 3.7-7.2 [facility] Phosphoruson 04-28-2023 Phosphate [Mass/Vol] 3.4 mg/dL Low 3.7-7.2 [facility] Comment on above: Performed By: #### U RMACRERAT, [id number], PHOS #### [facility] [address] Platelet mean volume Auto (B ld) [Entitic vol]Ordered By: Mary Jane Perez on 04-28-2023 Platelet mean volume (Bld) [Entitic vol] 8.9 fL 6.3-10.7 [facility] Platelets Auto (Bld) [#/Vol] Ordered By: Mary Jane Perez on 04-28-2023 Platelets (Bld) [#/Vol] 230 10*3/uL 150-450 [facility] Potassium [Moles/volume] in Serum or PlasmaOrdered By: Mary Jane Perez on 04-28-2023 Potassium [Moles/Vol] 4.0 mmol/L 3.5-5.1 [facility] Protein [Mass/volume] in Ser um or PlasmaOrdered By: Mary Jane Perez on 04-28-2023 Protein [Mass/Vol] 5.9 g/dL 6.4-8.9 [facility] RBC Auto (Bld) [#/Vol]Ordere d By: Mray Jane Perez on 04-28-2023 RBC (Bld) [#/Vol] 4.54 10*6/uL 3.60-5.00 [facility] Serum or plasma albumin/glob ulin mass ratioOrdered By: Mary Jane Perez on 04-28-2023 Albumin/Globulin [Mass ratio] 2.0 {ratio} [facility] Serum or plasma anion gap de terminationOrdered By: Mary Jane Perez on 04-28-2023 Anion gap [Moles/Vol] 9.4 mmol/L 6.0-15.0 [facility] Serum or plasma high density lipoprotein (HDL) cholesterol measurementOrdered By: Mary Jane Perez on 04-28-2023 Cholesterol in HDL [Mass/Vol] 43 mg/dL 35-85 [facility] Comment on above: HDL CHOL ATP-III CLA SSIFICATION Cardiovascular RiskHDL > or equal to 60 mg/dL LOWHDL < 40 mg/dL HIGH Serum or plasma total choles terol/high density lipoprotein (HDL) cholesterol mass ratOrdered By: Mary Jane Perez on 04-28-2023 Cholesterol.total/Lakesha sterol in HDL [Mass ratio] 3.5 {ratio} <5.0 [facility] Sodium [Moles/volume] in Ser um or PlasmaOrdered By: Mary Jane Perez on 04-28-2023 Sodium [Moles/Vol] 140 mmol/L 136-145 [facility] Triglyceride [Mass/volume] i n Serum or PlasmaOrdered By: Mary Jane Perez on 04-28-2023 Triglyceride [Mass/Vol] 83 mg/dL 0-149 [facility] Comment on above: TRIG ATP III CLASSIF ICATIONTRIG less than 150 mg/dL NormalTRIG 150-199 mg/dL Borderline highTRIG 200-500 mg/dL High TRIG greater than 500 mg/dL Very highStandard traceable to the Center for Disease Conrtrol and Prevention (CDC) test method. Urea nitrogen [Mass/volume] in Serum or PlasmaOrdered By: Mary Jane Perez on 04-28-2023 Urea nitrogen [Mass/Vol] 28 mg/dL 7-25 [facility] Urine microalbumin/creatinin e mass ratioOrdered By: Tanvir Ron on 04-28-2023 Albumin/Creatinine DL <= 20 mg/L (U) [Mass ratio] 20.0 mg/g 0.0-30.0 [facility] Comment on above: 30-300 mg/g indicate s an increased risk for diabetic nephropathy. Greater than 300 mg/g is consistent with clinical nephropathy. (Am. J. Kidney Disease 1995, 25:107) Vitamin D 25 Hydroxy Totalon 04-28-2023 Vitamin D 25 Hydroxy Total 41.2 ng/mL Normal 30-100 [facility] Comment on above: Result Comment: DANIELLE MIN D STATUS 25(OH)VITAMIN D RANGE (ng/mL) Deficient <20 Insufficient 20 to <30 Sufficient 30 to 100 Reference: Bisi MF,Mindi NC, Anders PUENTE, et al. Evaluation,treatment, and prevention of vitamin D deficiency; an Endocrine Society clinical practice guideline. JCEM. 2010; 96(7):1911-. PERFORMED BY: [address] [place] [address] PATHOLOGIST TOBACCO CHECKOUT CLERK GRIS CANELA M.D. Performed By: #### U RMACRERAT, [id number], PHOS #### [address] Vitamin D+Metabolites [Mass/ volume] in Serum or PlasmaOrdered By: Tanvir Ron on 04-28-2023 Vitamin D+Metabolites [Mass/Vol] 41.2 ng/mL 30-100 [facility] Comment on above: VITAMIN D STATUS 25( [place])VITAMIN D RANGE (ng/mL) Deficient <20 Insufficient 20 to <30Sufficient 30 to 100Reference: Bisi MF,Mindi GEE, Anders PUENTE, et al. Evaluation,treatment, and prevention of vitamin D deficiency; an Endocrine Society clinical practice guideline. JCEM. 2010; 96(7):1911-. WBC Auto (Bld) [#/Vol]Ordere d By: Mary Jane Perez on 04-28-2023 WBC (Bld) [#/Vol] 6.9 10*3/uL 3.8-11.6 [facility] Glucose Glucometer (BldC) [M ass/Vol]Ordered By: Marko Flores on 12-14-2022 Glucose [Mass/Vol] 131 mg/dL [facility] Comment on above: Random Glucose Refer ence Range is dependent on time and content of last meal. Glucose of more than 200 mg/dL in a nonstressed, ambulatory subject supports the diagnosis of Diabetes Mellitus. Glucose Poct Glucometerson 0 12-14-2022 Commemt1 Glu2: Cleaned Meter Normal [facility] Comment on above: Result Comment: PERF ORMED BY: [facility] [address] [place] [address] PATHOLOGIST TOBACCO CHECKOUT CLERK GRIS CANELA M.D. Performed By: #### G LULS #### Point of Care testing , Glucose [Mass/Vol] 131 mg/dL Normal [facility] Comment on above: Result Comment: [facility] Glucose Reference Range is dependent on time and content of last meal. Glucose of more than 200 mg/dL in a nonstressed, ambulatory subject supports the diagnosis of Diabetes Mellitus. Performed By: #### G LULS #### Point of Care testing , No Panel InformationOrdered By: Marko Flores on 12-14-2022 Bedside Glucose Comment Glu2: cleaned meter [facility] CT ABD/PELVIS WO CONon 12-24 CT ABD/PELVIS WO CON EXAMINATION: CT ABD/PELVIS WO CON, 12/24/2021 7:55 AM EST HISTORY: Right flank pain COMPARISON: None. TECHNIQUE: CT scan of the abdomen and pelvis was performed without IV contrast. CT dose reduction technique was used, including Automated Exposure Control. FINDINGS: LUNG BASES: Mild patchy linear opacities Bases, atelectasis is favored. Mild coronary atherosclerosis LIVER: No enlargement, atrophy, abnormal density, or significant focal lesion. BILIARY: No dilatation or calcification. PANCREAS: Diffuse atrophy SPLEEN: No enlargement or focal lesion. ADRENALS: No mass or enlargement. KIDNEYS: 4 mm nonobstructing right nephrolith. No hydronephrosis. BOWEL/MESENTERY: Colonic diverticulosis without evidence of acute diverticulitis. Nonobstructive bowel gas pattern. AORTA/VASCULAR: No aortic aneurysm. Mild to moderate atherosclerosis RETROPERITONEUM: No mass or adenopathy. LYMPH NODES: No adenopathy. URINARY BLADDER: No visible focal wall thickening, lesion, or calculus. PELVIC ORGANS: Hysterectomy ABDOMINAL WALL: No mass or hernia. BONES: No bony lesion or fracture. OTHER: Negative. IMPRESSION: No obstructive uropathy Electronically authenticated by: MARS CASTILLO Date: 2021-12-24 08:32 Normal [facility] XR wrist LT 2Von 10-29-2021 XR wrist LT 2V [facility] [employer] Other XR wrist LT 2V [facility] [employer] Other XR wrist LT 2V [address] [place] [address] [employer] Other XR [place] 2[place] [address] No rth [employer] Other XR wrist LT 2V XRay Report [employer] Other XR wrist LT 2V Signed [employer] Other XR wrist LT 2V Patient: Daya Ramsay MR#: [id number] [employer] Other XR wrist LT 2V 4 [employer] Other XR wrist LT 2V : 1950 Acct:[id number] [employer] Other XR wrist LT 2V Age/Sex: 71 / F ADM Date: 10/29/21 [employer] Other XR wrist LT 2V [place] [facility] [place]: Type: [facility] [employer] Other XR wrist LT 2V Attending Dr: Toña Slaughter MD [employer] Other XR wrist LT 2V Ordering Provider: Toña Slaughter MD [employer] Other XR wrist LT 2V Date of Service: 10/29/21 [employer] Other XR wrist LT 2V XR/XR wrist LT 2V: Left wrist pain [employer] Other XR wrist LT 2V ([id number]) XR/XR hand LT min 3V*: Left hand pain [employer] Other XR wrist LT 2V Copies to: Toña Slaughter MD [employer] Other XR wrist LT 2V 4 viewsLEFT hand plain film [employer] Other XR wrist LT 2V COMPARISON:None [employer] Other XR wrist LT 2V HISTORY:LEFT hand and wrist pain since fall 2 weeks ago. [employer] Other XR wrist LT 2V No fracture, dislocation or focal soft tissue abnormality seen. Mild degeneration identified. [employer] Other XR wrist LT 2V XR/XR hand LT min 3V* [employer] Other XR wrist LT 2V IMPRESSION:No acute findings [employer] Other XR wrist LT 2V 2 views of the LEFT wrist [employer] Other XR wrist LT 2V No fracture or dislocation identified. Mild to moderate wrist degeneration present. Impingement [employer] Other XR wrist LT 2V changes of the lunate and ulna noted. No focal soft tissue abnormality. [employer] Other XR wrist LT 2V IMPRESSION: No acute bony findings. [employer] Other XR wrist LT 2V Impression dictated by: Braulio Chavez M.D.10/29/2021 1:15 PM [employer] Other XR wrist LT 2V Dictation Location: [place] [address] [employer] Other XR wrist LT 2V Transcribed By: DESTINY 10/29/21 131 [employer] Other XR wrist LT 2V Dictated By: Braulio Chavez DO 10/29/21 1311 [employer] Other XR wrist LT 2V Signed By: [employer] Other XR wrist LT 2V 10/29/21 131 [employer] Other ACETONE SERUMon 09-13-2021 ACETONE Negative Normal NEGATIVE [facility] Comment on above: Performed By: #### A CETON #### [facility] [address] [address] [address] Kemi Dumont CBC AUTO DIFFon 09-13-2021 BASO # 0.0 103/ul Normal 0.0-0.1 [facility] Comment on above: Performed By: #### C BC #### [facility] [address] [address] [address] Kemi Dumont Basophils/100 WBC (Bld) 0.8 % Normal 0.2-2.0 [facility] Comment on above: Performed By: #### C BC #### [facility] [address] [address] [address] Kemi Dumnot EO # 0.2 103/ul Normal 0.0-0.7 [facility] Comment on above: Performed By: #### C BC #### [facility] [address] [address] [address] Kemi Dumont Eosinophils/100 WBC (Bld) 4.1 % Normal 0.9-7.0 [facility] Comment on above: Performed By: #### C BC #### [facility] [address] [place] [address] Dr. Kemi Dumont Erythrocyte distribution width (RBC) [Ratio] 13.2 % Normal 11.0-15.0 [facility] Comment on above: Performed By: #### C BC #### [facility] [address] [place] [address] Dr. Kemi Dumont Hematocrit (Bld) [Volume fraction] 40.3 % Normal 36.0-48.0 [facility] Comment on above: Performed By: #### C BC #### [facility] [address] [place] [address] Dr. Kemi Dumont Hemoglobin (Bld) [Mass/Vol] 13.6 g/dL Normal 12.0-16.0 [facility] Comment on above: Performed By: #### C BC #### [facility] [address] [address] [address] Kemi Dumont IG # 0.04 10e3/ul Critically high 0.00-0.03 [facility] Comment on above: Performed By: #### C BC #### [facility] [address] [address] [address] Kemi Dumont IG % 0.8 % Critically high 0.0-0.5 [facility] Comment on above: Performed By: #### C BC #### [facility] [address] [address] [address] Kemi Dumont LYMPH # 1.7 103/ul Normal 1.2-3.8 [facility] Comment on above: Performed By: #### C BC #### [facility] [address] [place] [address] Dr. Kemi Dumont Lymphocytes/100 WBC (Bld) 32.3 % Normal 20.5-60.0 [facility] Comment on above: Performed By: #### C BC #### [facility] [address] [place] [address] Dr. Kemi Dumont MANUAL DIFF REQ NO Normal [facility] Comment on above: Performed By: #### C BC #### [facility] [address] [place] [address] Dr. Kemi Dumont MCH (RBC) [Entitic mass] 30.1 pg Normal 26.7-34.0 [facility] Comment on above: Performed By: #### C BC #### [facility] [address] [place] [address] Dr. Kemi Dumont MCHC (RBC) [Mass/Vol] 33.7 g/dL Normal 29.9-35.2 [facility] Comment on above: Performed By: #### C BC #### [facility] [address] [place] [address] Dr. Kemi Dumont MCV (RBC) [Entitic vol] 89.2 fL Normal 81.0-99.0 [facility] Comment on above: Performed By: #### C BC #### [facility] [address] [place] [address] Dr. Kemi Dumont MONO # 0.5 103/ul Normal 0.3-0.8 [facility] Comment on above: Performed By: #### C BC #### [facility] [address] [place] [address] Dr. Kemi Dumont Monocytes/100 WBC (Bld) 9.6 % Normal 1.7-12.0 [facility] Comment on above: Performed By: #### C BC #### [facility] [address] [place] [address] Dr. Kemi Dumont NEUT # 2.8 103/ul Normal 1.4-6.5 [facility] Comment on above: Performed By: #### C BC #### [facility] [address] [place] [address] Dr. Kemi Dumont Neutrophils/100 WBC (Bld) 52.4 % Normal 43.0-75.0 [facility] Comment on above: Performed By: #### C BC #### [facility] [address] [place] [address] Dr. Kemi Dumont Platelet mean volume (Bld) [Entitic vol] 10.3 fL Normal 9.5-13.5 [facility] Comment on above: Performed By: #### C BC #### [facility] [address] [place] [address] Dr. Kemi Dumont PLT 259 103/ul Normal 150-450 [facility] Comment on above: Performed By: #### C BC #### [facility] [address] [place] [address] Dr. Kemi Dumont RBC 4.52 106/ul Normal 4.20-5.40 [facility] Comment on above: Performed By: #### C BC #### [facility] [address] [place] [address] Dr. Kemi Dumont WBC 5.3 103/ul Normal 4.0-11.0 [facility] Comment on above: Performed By: #### C BC #### [facility] [address] [place] [address] Dr. Kemi Dumont ER URINE PROFILEon 1 Bilirubin Ql (U) Negative Normal NEGATIVE [facility] Comment on above: Performed By: #### E RUR #### [facility] [address] [place] [address] Dr. Kemi Dumont Clarity (U) CLEAR Normal CLEAR [facility] Comment on above: Performed By: #### E RUR #### [facility] [address] [place] [address] Dr. Kemi Dumont Color (U) LT. YELLOW Normal YELLOW [facility] Comment on above: Performed By: #### E RUR #### [facility] [address] [place] [address] Dr. Kemi GARLAND A micrscopic examination will be performed if indicated. Normal [facility] Comment on above: Performed By: #### E RUR #### [facility] [address] [place] [address] Dr. Kemi Dumont Glucose Ql (U) >1000 Abnormal NEGATIVE [facility] Comment on above: Performed By: #### E RUR #### [facility] [address] [place] [address] Dr. Kemi Dumont Hemoglobin Ql (U) Negative Normal NEGATIVE [facility] Comment on above: Performed By: #### E RUR #### [facility] [address] [place] [address] Dr. Kemi Dumont Ketones Ql (U) 15 mg/dl Abnormal NEGATIVE [facility] Comment on above: Performed By: #### E RUR #### [facility] [address] [place] [address] Dr. Kemi Dumont LEUKOCYTES Negative Normal NEGATIVE [facility] Comment on above: Performed By: #### E RUR #### [facility] [address] [place] [address] Dr. Kemi Dumont Nitrite Ql (U) Negative Normal NEGATIVE [facility] Comment on above: Performed By: #### E RUR #### [facility] [address] [place] [address] Dr. Kemi Dumont pH (U) 6.0 [pH] Normal 5-9 [facility] Comment on above: Performed By: #### E RUR #### [facility] [address] [place] [address] Dr. Kemi Dumont SPEC GRAVITY 1.010 Normal 1.005-<=1.02 5 [facility] Comment on above: Performed By: #### E RUR #### [facility] [address] [place] [address] Dr. Kemi Dumont UA PROTEIN Negative Normal NEGATIVE/ TRACE [facility] Comment on above: Performed By: #### E RUR #### [facility] [address] [address] [address] Kemi Dumont UR MICRO IND NOT INDICATED Normal [facility] Comment on above: Performed By: #### E RUR #### [facility] [address] [place] [address] Dr. Kemi Dumont Urobilinogen Qn (U) 0.2 {Adalgisa'U}/dL Normal 0.2 - 1. 0 [facility] Comment on above: Performed By: #### E RUR #### [facility] [address] [place] [address] Dr. Kemi Dumont POINT OF CARE GLUCOSEon 08-29 Glucose [Mass/Vol] 380 mg/dL Critically high [facility] Comment on above: Performed By: #### A 1C #### [facility] [address] [place] [address] Dr. Kemi Dumont Glucose [Mass/Vol] 494 mg/dL Critically high [facility] Comment on above: Performed By: #### P OCGLUC #### [facility] [address] [place] [address] Dr. Kemi Dumont PROF 14(COMP METB)on 021 Albumin [Mass/Vol] 3.4 g/dL Critically low 3.5-5.0 [facility] Comment on above: Performed By: #### C MP #### [facility] [address] [place] [address] Dr. Kemi Dumont Albumin/Globulin [Mass ratio] 1.1 {ratio} Normal [facility] Comment on above: Performed By: #### C MP #### [facility] [address] [place] [address] Dr. Kemi Dumont ALP [Catalytic activity/Vol] 112 U/L Normal 38-126 [facility] Comment on above: Performed By: #### C MP #### [facility] [address] [place] [address] Dr. Kemi Dumont ALT [Catalytic activity/Vol] 43 U/L Normal 9-52 [facility] Comment on above: Performed By: #### C MP #### [facility] [address] [address] [address] Kemi Dumont Anion gap [Moles/Vol] 10.1 mmol/L Normal [facility] Comment on above: Performed By: #### C MP #### [facility] [address] [address] [address] Kemi Dumont AST [Catalytic activity/Vol] 13 U/L Critically low 14-36 [facility] Comment on above: Performed By: #### C MP #### [facility] [address] [address] [address] Kemi Dumont Bilirubin [Mass/Vol] 0.5 mg/dL Normal 0.2-1.3 [facility] Comment on above: Performed By: #### C MP #### [facility] [address] [address] [address] Kemi Dumont Calcium [Mass/Vol] 9.2 mg/dL Normal 8.4-10.2 [facility] Comment on above: Performed By: #### C MP #### [facility] [address] [address] [address] Kemi Dumont Chloride [Moles/Vol] 102 mmol/L Normal 98-107 [facility] Comment on above: Performed By: #### C MP #### [facility] [address] [address] [address] Kemi Dumont CO2 [Moles/Vol] 27.4 mmol/L Normal 22.0-30.0 [facility] Comment on above: Performed By: #### C MP #### [facility] [address] [address] [address] Kemi Dumont Creatinine [Mass/Vol] 1.08 mg/dL Critically high 0.52-1.04 [facility] Comment on above: Performed By: #### C MP #### [facility] [address] [address] [address] Kemi Dumont EGFR-AF BARBADIAN >60 Normal >=60 [facility] Comment on above: Performed By: #### C MP #### [facility] [address] [address] [address] Kemi Dumont EGFR-NON AF BAR[place]IAN 50 mL/min/1.73m2 Critically low >=60 [facility] Comment on above: Performed By: #### C MP #### [facility] [address] [address] [address] Kemi Dumont Globulin (S) [Mass/Vol] 3.1 g/dL Normal [facility] Comment on above: Performed By: #### C MP #### [facility] [address] [address] [address] Kemi Dumont Glucose [Mass/Vol] 440 mg/dL Critically high 74-106 [facility] Comment on above: Performed By: #### C MP #### [facility] [address] [address] [address] Kemi Dumont Potassium [Moles/Vol] 3.5 mmol/L Normal 3.4-5.0 [facility] Comment on above: Performed By: #### C MP #### [facility] [address] [address] [address] Kemi Dumont Protein [Mass/Vol] 6.5 g/dL Normal 6.1-8.2 [facility] Comment on above: Performed By: #### C MP #### [facility] [address] [address] [address] Kemi Dumont Sodium [Moles/Vol] 136 mmol/L Critically low 137-145 [facility] Comment on above: Performed By: #### C MP #### [facility] [address] [address] [address] Kemi Dumont Urea nitrogen [Mass/Vol] 24.0 mg/dL Critically high 7.0-17.0 [facility] Comment on above: Performed By: #### C MP #### [facility] [address] [address] [address] Kemi Dumont Urea nitrogen/Creatinine [Mass ratio] 22.2 mg/mg Normal [facility] Comment on above: Performed By: #### C MP #### [facility] [address] [address] [address] Kemi Dumont CBC AUTO DIFFon 09-08-2021 BASO # 0.0 103/ul Normal 0.0-0.1 [facility] Comment on above: Performed By: #### A 1C #### [facility] [address] [address] [address] Kemi Dumont Basophils/100 WBC (Bld) 0.6 % Normal 0.2-2.0 [facility] Comment on above: Performed By: #### A 1C #### [facility] [address] [address] [address] Kemi Dumont EO # 0.2 103/ul Normal 0.0-0.7 [facility] Comment on above: Performed By: #### A 1C #### [facility] [address] [place] [address] Dr. Kemi Dumont Eosinophils/100 WBC (Bld) 4.1 % Normal 0.9-7.0 [facility] Comment on above: Performed By: #### A 1C #### [facility] [address] [place] [address] Dr. Kemi Dumont Erythrocyte distribution width (RBC) [Ratio] 13.2 % Normal 11.0-15.0 [facility] Comment on above: Performed By: #### A 1C #### [facility] [address] [place] [address] Dr. Kemi Dumont Hematocrit (Bld) [Volume fraction] 41.9 % Normal 36.0-48.0 [facility] Comment on above: Performed By: #### A 1C #### [facility] [address] [place] [address] Dr. Kemi Dumont Hemoglobin (Bld) [Mass/Vol] 13.5 g/dL Normal 12.0-16.0 [facility] Comment on above: Performed By: #### A 1C #### [facility] [address] [address] [address] Kemi Dumont IG # 0.01 10e3/ul Normal 0.00-0.03 [facility] Comment on above: Performed By: #### A 1C #### [facility] [address] [place] [address] Dr. Kemi Dumont IG % 0.2 % Normal 0.0-0.5 [facility] Comment on above: Performed By: #### A 1C #### [facility] [address] [place] [address] Dr. Kemi Dumont LYMPH # 1.8 103/ul Normal 1.2-3.8 [facility] Comment on above: Performed By: #### A 1C #### [facility] [address] [place] [address] Dr. Kemi Dumont Lymphocytes/100 WBC (Bld) 33.8 % Normal 20.5-60.0 [facility] Comment on above: Performed By: #### A 1C #### [facility] [address] [place] [address] Dr. Kemi Dumont MANUAL DIFF REQ NO Normal [facility] Comment on above: Performed By: #### A 1C #### [facility] [address] [place] [address] Dr. Kemi Dumont MCH (RBC) [Entitic mass] 29.0 pg Normal 26.7-34.0 [facility] Comment on above: Performed By: #### A 1C #### [facility] [address] [place] [address] Dr. Kemi Dumont MCHC (RBC) [Mass/Vol] 32.2 g/dL Normal 29.9-35.2 [facility] Comment on above: Performed By: #### A 1C #### [facility] [address] [place] [address] Dr. Kemi Dumont MCV (RBC) [Entitic vol] 90.1 fL Normal 81.0-99.0 [facility] Comment on above: Performed By: #### A 1C #### [facility] [address] [place] [address] Dr. Kemi Dumont MONO # 0.5 103/ul Normal 0.3-0.8 [facility] Comment on above: Performed By: #### A 1C #### [facility] [address] [place] [address] Dr. Kemi Dumont Monocytes/100 WBC (Bld) 9.7 % Normal 1.7-12.0 [facility] Comment on above: Performed By: #### A 1C #### [facility] [address] [place] [address] Dr. Kemi Dumont NEUT # 2.7 103/ul Normal 1.4-6.5 [facility] Comment on above: Performed By: #### A 1C #### [facility] [address] [place] [address] Dr. Kemi Dumont Neutrophils/100 WBC (Bld) 51.6 % Normal 43.0-75.0 [facility] Comment on above: Performed By: #### A 1C #### [facility] [address] [place] [address] Dr. Kemi Dumont Platelet mean volume (Bld) [Entitic vol] 10.7 fL Normal 9.5-13.5 [facility] Comment on above: Performed By: #### A 1C #### [facility] [address] [place] [address] Dr. Kemi Dumont PLT 285 103/ul Normal 150-450 [facility] Comment on above: Performed By: #### A 1C #### [facility] [address] [place] [address] Dr. Kemi Dumont RBC 4.65 106/ul Normal 4.20-5.40 [facility] Comment on above: Performed By: #### A 1C #### [facility] [address] [place] [address] Dr. Kemi Dumont WBC 5.2 103/ul Normal 4.0-11.0 [facility] Comment on above: Performed By: #### A 1C #### [facility] [address] [place] [address] Dr. Kemi Dumont GLYCOHEMOGLOBIN A1Con 2020 ADA RECOMMENDATION ADA THERAPEUTIC TARGET 6.0 - 7.0 ACTION SUGGESTED > 7.0 Normal [facility] Comment on above: Performed By: #### A 1C #### [facility] [address] [place] [address] Dr. Kemi Dumont Glucose [Mass/Vol] 232 mg/dL Normal [facility] Comment on above: Performed By: #### A 1C #### [facility] [address] [address] [address] Kemi Dumont HbA1c (Bld) [Mass fraction] 9.7 % Critically high <=6.0 [facility] Comment on above: Performed By: #### A 1C #### [facility] [address] [address] [address] Kemi Dumont LIPID PROFILEon 09-08-2021 CHOL-HDL RATIO NORM SEE BELOW Normal [facility] Comment on above: Result Comment: 3.3 - 4.4 LOW RISK 4.4 - 7.1 AVERAGE RISK 7.1 - 11.0 MODERATE RISK >11.0 HIGH RISK Performed By: #### A 1C #### [facility] [address] [place] [address] Dr. Kemi Dumont Cholesterol [Mass/Vol] 182 mg/dL Normal <=200 [facility] Comment on above: Performed By: #### A 1C #### [facility] [address] [address] [address] Kemi Dumont Cholesterol in HDL [Mass/Vol] 43 mg/dL Normal [facility] Comment on above: Performed By: #### A 1C #### [facility] [address] [place] [address] Dr. Kemi Dumont Cholesterol in LDL [Mass/Vol] 112.4 mg/dL Normal [facility] Comment on above: Performed By: #### A 1C #### [facility] [address] [place] [address] Dr. Kemi Dumont Cholesterol.total/Lakesha sterol in HDL [Mass ratio] 4.2 {ratio} Normal [facility] Comment on above: Performed By: #### A 1C #### [facility] [address] [place] [address] Dr. Kemi Dumont HDL NORMAL > or = 60 mg/dl - LOW CARDIOVASCULAR RISK <40 mg/dl - HIGH CARDIOVASCULAR RISK Normal [facility] Comment on above: Performed By: #### A 1C #### [facility] [address] [address] [address] Kemi Dumont LDL CALC NORMAL SEE BELOW Normal [facility] Comment on above: Result Comment: <100 mg/dl OPTIMAL 100 - 129 mg/dl NEAR OR ABOVE OPTIMAL 130 - 159 mg/dl BORDERLINE HIGH 160 - 189 mg/dl HIGH >190 mg/dl VERY HIGH Performed By: #### A 1C #### [facility] [address] [address] [address] Kemi Dumont Triglyceride [Mass/Vol] 133 mg/dL Normal <=150 [facility] Comment on above: Performed By: #### A 1C #### [facility] [address] [address] [address] Kemi Dumont VLDL CALC 26.6 mg/dL Normal [facility] Comment on above: Performed By: #### A 1C #### [facility] [address] [place] [address] Dr. Kemi Dumont PROF CHEM 8 (BAS METB)on Anion gap [Moles/Vol] 10.7 mmol/L Normal [facility] Comment on above: Performed By: #### A 1C #### [facility] [address] [address] [address] Kemi Dumont Calcium [Mass/Vol] 9.3 mg/dL Normal 8.4-10.2 [facility] Comment on above: Performed By: #### A 1C #### [facility] [address] [address] [address] Kemi Dumont Chloride [Moles/Vol] 103 mmol/L Normal 98-107 [facility] Comment on above: Performed By: #### A 1C #### [facility] [address] [address] [address] Kemi Dumont CO2 [Moles/Vol] 29.3 mmol/L Normal 22.0-30.0 [facility] Comment on above: Performed By: #### A 1C #### [facility] [address] [address] [address] Kemi Dumont Creatinine [Mass/Vol] 0.90 mg/dL Normal 0.52-1.04 [facility] Comment on above: Performed By: #### A 1C #### [facility] [address] [address] [address] Kemi Dumont EGFR-AF BARBADIAN >60 Normal >=60 [facility] Comment on above: Performed By: #### A 1C #### [facility] [address] [address] [address] Kemi Dumont EGFR-NON AF BARBADIAN >60 Normal >=60 [facility] Comment on above: Performed By: #### A 1C #### [facility] [address] [address] [address] Kemi Dumont Glucose [Mass/Vol] 416 mg/dL Critically high 74-106 [facility] Comment on above: Performed By: #### A 1C #### [facility] [address] [address] [address] Kemi Dumont Potassium [Moles/Vol] 4.0 mmol/L Normal 3.4-5.0 [facility] Comment on above: Performed By: #### A 1C #### [facility] [address] [address] [address] Kemi Dumont Sodium [Moles/Vol] 139 mmol/L Normal 137-145 [facility] Comment on above: Performed By: #### A 1C #### [facility] [address] [address] [address] Kemi Dumont Urea nitrogen [Mass/Vol] 19.0 mg/dL Critically high 7.0-17.0 [facility] Comment on above: Performed By: #### A 1C #### [facility] [address] [address] [address] Kemi Dumont Urea nitrogen/Creatinine [Mass ratio] 21.1 mg/mg Normal [facility] Comment on above: Performed By: #### A 1C #### [facility] [address] [address] [address] Kemi Dumont TSHon 09-08-2021 TSH 0.918 uIU/mL Normal 0.470-4.[address] [facility] Comment on above: Performed By: #### A 1C #### [facility] [address] [address] [address] Kemi Dumont TSH RANGE SEE BELOW Normal [facility] Comment on above: Result Comment: <0.3 4 UIU/ml HYPERTHYROID 0.34-5.60 UIU/ml EUTHYROID >5.60 UIU/ml HYPOTHYROID Performed By: #### A 1C #### [facility] [address] [address] [address] Kemi Dumont XR CHEST 1 Von 08-13-2021 XR CHEST 1 V EXAMINATION: XR CHEST 1 V HISTORY: COUGH , diarrhea, nausea COMPARISON: XR chest 12/04/2016 FINDINGS: LUNGS: Underexpanded lungs with trace amount stranding within the right lung base. Mild haziness within left lung base with poorly defined margins. VASCULATURE: No increased pulmonary vasculature. PLEURA: No pneumothorax, effusion, or pleural thickening. CARDIAC: No cardiomegaly or cardiac silhouette abnormality. MEDIASTINUM: No visible mass or adenopathy. BONES: No fracture or visible bone lesion. OTHER: Negative. IMPRESSION: 1. Low lung volume examination with trace amount of bibasilar atelectasis or possibly infiltrates. Electronically authenticated by: MITCHEL BEE Date: 2021-08-13 14:29 Normal [facility] SYMPTOMATIC COVID-19 ANTIGEN on 08-11-2021 EUA Statement SEE BELOW Normal [facility] Comment on above: Result Comment: This test has not been FDA cleared or approved, but has been authorized by the FDA under an Emergency Use Authorization (EUA) for use by authorized laboratories certified under CLIA that meet the requirements to perform moderate or high complexity testing. This test has been authorized only for the detection of proteins from SARS-CoV-2, not for any other viruses or pathogens. The emergency use of this test is authorized for the duration of the declaration that circumstances exist justifying the authorization of emergency use of in vitro diagnostic tests for detection and/or diagnosis of Covid-19 under section 564(b)(1) of the Act, 21 U.S.C. 360bbb-3(b)(1), unless the declaration is terminated or authorization is revoked sooner. Performed By: #### A 1C #### [facility] [address] [address] [address] Kemi Dumont SARS-CoV-2 (COVID-19) RNA TERESE+probe Ql (Unsp spec) Positive Critically abnormal NEGATIVE [facility] Comment on above: Performed By: #### A 1C #### [facility] [address] [place] [address] Dr. eKmi Dumont PROF CHEM 8 (BAS METB)on Anion gap [Moles/Vol] 14.1 mmol/L Normal [facility] Comment on above: Performed By: #### B MP #### [facility] [address] [address] Glenny Chanell Calcium [Mass/Vol] 9.0 mg/dL Normal 8.4-10.2 [facility] Comment on above: Performed By: #### B MP #### [facility] [address] [place] [address] Glenny Chanell Chloride [Moles/Vol] 106 mmol/L Normal 98-107 [facility] Comment on above: Performed By: #### B MP #### [facility] [address] [place] [address] Glenny Chanell CO2 [Moles/Vol] 29.0 mmol/L Normal 22.0-30.0 [facility] Comment on above: Performed By: #### B MP #### [facility] [address] [place] [address] Glenny Chanell Creatinine [Mass/Vol] 0.80 mg/dL Normal 0.52-1.04 [facility] Comment on above: Performed By: #### B MP #### [facility] [address] [place] [address] Glenny Chanell EGFR-AF BARBADIAN >60 Normal >=60 [facility] Comment on above: Performed By: #### B MP #### [facility] [address] [place] [address] Glenny Chanell EGFR-NON AF BARBADIAN >60 Normal >=60 [facility] Comment on above: Performed By: #### B MP #### [facility] [address] [place], [place] [address] Glenny Chanell Glucose [Mass/Vol] 138 mg/dL Critically high 74-106 [facility] Comment on above: Performed By: #### B MP #### [facility] [address] [place], [place] [id number] Glenny Chanell Potassium [Moles/Vol] 4.1 mmol/L Normal 3.4-5.0 [facility] Comment on above: Performed By: #### B MP #### [facility] [address] [place], [place] [address] Glenny Chanell Sodium [Moles/Vol] 145 mmol/L Normal 137-145 [facility] Comment on above: Performed By: #### B MP #### [facility] [address] [place], [place] [address] Glenny Chanell Urea nitrogen [Mass/Vol] 17.0 mg/dL Normal 7.0-17.0 [facility] Comment on above: Performed By: #### B MP #### [facility] [address] [place], [place] [address] Glenny Chanell Urea nitrogen/Creatinine [Mass ratio] 21.2 mg/mg Normal [facility] Comment on above: Performed By: #### B MP #### [facility] [address] [place], [place] [id number] Glenny Chanell CBC AUTO DIFFon 05-08-2021 BASO # 0.0 103/ul Normal 0.0-0.1 [facility] Comment on above: Performed By: #### C BC #### [facility] [address] [place], [place] [address] Glenny Chanell Basophils/100 WBC (Bld) 0.4 % Normal 0.2-2.0 [facility] Comment on above: Performed By: #### C BC #### [facility] [address] [place], [place] [address] Glenny Chanell EO # 0.2 103/ul Normal 0.0-0.7 [facility] Comment on above: Performed By: #### C BC #### [facility] [address] [place], [place] [address] Glenny Chanell Eosinophils/100 WBC (Bld) 2.6 % Normal 0.9-7.0 [facility] Comment on above: Performed By: #### C BC #### [facility] [address] [place] [address] Glenny Lua Erythrocyte distribution width (RBC) [Ratio] 13.2 % Normal 11.0-15.0 [facility] Comment on above: Performed By: #### C BC #### [facility] [address] [place] [address] Glenny Lua Hematocrit (Bld) [Volume fraction] 39.1 % Normal 36.0-48.0 [facility] Comment on above: Performed By: #### C BC #### [facility] [address] [place] [address] Glenny Lua Hemoglobin (Bld) [Mass/Vol] 13.2 g/dL Normal 12.0-16.0 [facility] Comment on above: Performed By: #### C BC #### [facility] [address] [place] [address] [place] Lua IG # 0.01 10e3/ul Normal 0.00-0.03 [facility] Comment on above: Performed By: #### C BC #### [facility] [address] [place] [address] Glenny Lua IG % 0.1 % Normal 0.0-0.5 [facility] Comment on above: Performed By: #### C BC #### [facility] [address] [place] [address] [place] Lua LYMPH # 1.6 103/ul Normal 1.2-3.8 [facility] Comment on above: Performed By: #### C BC #### [facility] [address] [place] [address] Glenny Lua Lymphocytes/100 WBC (Bld) 22.3 % Normal 20.5-60.0 [facility] Comment on above: Performed By: #### C BC #### [facility] [address] [place] [address] Glenny Lua MANUAL DIFF REQ NO Normal [facility] Comment on above: Performed By: #### C BC #### [facility] [address] [place], [place] [address] Glenny Chanell MCH (RBC) [Entitic mass] 29.9 pg Normal 26.7-34.0 [facility] Comment on above: Performed By: #### C BC #### [facility] [address] [place], [place] [address] [place] Carcamoen MCHC (RBC) [Mass/Vol] 33.8 g/dL Normal 29.9-35.2 [facility] Comment on above: Performed By: #### C BC #### [facility] [address] [place], [place] [address] Glenny Chanell MCV (RBC) [Entitic vol] 88.5 fL Normal 81.0-99.0 [facility] Comment on above: Performed By: #### C BC #### [facility] [address] [place] [address] Glenny Chanell MONO # 0.5 103/ul Normal 0.3-0.8 [facility] Comment on above: Performed By: #### C BC #### [facility] [address] [place], [place] [address] Glenny Chanell Monocytes/100 WBC (Bld) 6.6 % Normal 1.7-12.0 [facility] Comment on above: Performed By: #### C BC #### [facility] [address] [place] [address] Glenny Chanell NEUT # 4.8 103/ul Normal 1.4-6.5 [facility] Comment on above: Performed By: #### C BC #### [facility] [address] [place], [place] [address] Glenny Chanell Neutrophils/100 WBC (Bld) 68.0 % Normal 43.0-75.0 [facility] Comment on above: Performed By: #### C BC #### [facility] [address] [place], [place] [address] Glenny Chanell Platelet mean volume (Bld) [Entitic vol] 10.0 fL Normal 9.5-13.5 [facility] Comment on above: Performed By: #### C BC #### [facility] [address] [place], [place] [address] Glenny Chanell PLT 233 103/ul Normal 150-450 [facility] Comment on above: Performed By: #### C BC #### [facility] [address] [place], [place] [address] Glenny Chanell RBC 4.42 106/ul Normal 4.20-5.40 [facility] Comment on above: Performed By: #### C BC #### [facility] [address] [id number] Glenny Chanell WBC 7.0 103/ul Normal 4.0-11.0 [facility] Comment on above: Performed By: #### C BC #### [facility] [address] [place], [place] [address] Glenny Chanell PROF CHEM 8 (BAS METB)on Anion gap [Moles/Vol] 11.8 mmol/L Normal [facility] Comment on above: Performed By: #### T JOSE, BMP #### [facility] [address] [place], [place] [address] Glenny Chanell Calcium [Mass/Vol] 8.9 mg/dL Normal 8.4-10.2 [facility] Comment on above: Performed By: #### T JOSE, BMP #### [facility] [address] [place], [place] [address] Glenny Chanell Chloride [Moles/Vol] 107 mmol/L Normal 98-107 [facility] Comment on above: Performed By: #### T JOSE, BMP #### [facility] [address] [place], [place] [address] Glenny Chanell CO2 [Moles/Vol] 28.3 mmol/L Normal 22.0-30.0 [facility] Comment on above: Performed By: #### T JOSE, BMP #### [facility] [address] [place], [place] [address] Glenny Chanell Creatinine [Mass/Vol] 0.81 mg/dL Normal 0.52-1.04 [facility] Comment on above: Performed By: #### T JOSE, BMP #### [facility] [address] [place], [place] [address] Glenny Chanell EGFR-AF BARBADIAN >60 Normal >=60 [facility] Comment on above: Performed By: #### T JOSE, BMP #### [facility] [address] [place] [address] Glenny Chanell EGFR-NON AF BARBADIAN >60 Normal >=60 [facility] Comment on above: Performed By: #### T JOSE, BMP #### [facility] [address] [place] [address] Glenny Chanell Glucose [Mass/Vol] 143 mg/dL Critically high 74-106 [facility] Comment on above: Performed By: #### T JOSE, BMP #### [facility] [address] [place] [address] Glenny Chanell Potassium [Moles/Vol] 4.1 mmol/L Normal 3.4-5.0 [facility] Comment on above: Performed By: #### T JOSE, BMP #### [facility] [address] [place] [address] Glenny Chanell Sodium [Moles/Vol] 143 mmol/L Normal 137-145 [facility] Comment on above: Performed By: #### T JOSE, BMP #### [facility] [address] [place] [address] Glenny Chanell Urea nitrogen [Mass/Vol] 19.0 mg/dL Critically high 7.0-17.0 [facility] Comment on above: Performed By: #### T JOSE, BMP #### [facility] [address] [place] [address] Glenny Chanell Urea nitrogen/Creatinine [Mass ratio] 23.5 mg/mg Normal [facility] Comment on above: Performed By: #### T JOSE, BMP #### [facility] [address] [place], [place] [address] Glenny Chanell TSHon 05-08-2021 TSH 0.487 uIU/mL Normal 0.470-4.[address] [facility] Comment on above: Performed By: #### T JOSE, BMP #### [facility] [address] [place], [place] [address] Glenny Lua TSH RANGE SEE BELOW Normal [facility] Comment on above: Result Comment: <0.3 4 UIU/ml HYPERTHYROID 0.34-5.60 UIU/ml EUTHYROID >5.60 UIU/ml HYPOTHYROID Performed By: #### T , LISA #### [facility] [address] [place], [place] [address] Glenny Lua Vital Signs Date Time Vital Sign Value Performing Clinician Facility 12-14-2022 10:01-0500 Diastolic blood pressure 51 mm[Hg] MD Connie Taylor Work Phone: [facility] 12-14-2022 10:01-0500 Heart rate 55 /min MD Connie Taylor Work Phone: [facility] 12-14-2022 10:01-0500 Respiratory rate 16 /min MD Connie Taylor Work Phone: [facility] 12-14-2022 10:01-0500 SaO2% (BldA) [Mass fraction] 97 % MD Connie Taylor Work Phone: [facility] 12-14-2022 10:01-0500 Systolic blood pressure 98 mm[Hg] MD Connie Taylor Work Phone: [facility] 12-14-2022 08:29-0500 Body height 170.18 cm MD Connie Taylor Work Phone: [facility] 12-14-2022 08:29-0500 Body temperature 98.4 [degF] MD Connie Taylor Work Phone: [facility] 12-14-2022 08:29-0500 Body weight 81.64 kg MD Connie Taylor Work Phone: [facility] 10-29-2021 10:00-0500 Body height 168.91 cm Toña Slaughter Other [facility] Other 10-29-2021 10:00-0500 Body mass index (BMI) [Ratio] 30.68 kg/m2 Toña Slaughter Other [facility] Other 10-29-2021 10:00-0500 Body weight 87.54 kg Toña Slaughter Other [place] [employer] Other Encounters Encounter Date Encounter Type Care Provider Facility Start: 01-10-2024 End: 01-10-2024 ambulatory [facility] Start: 11-05-2023 End: 11-06-2023 ambulatory Livier L Akira Facility:[facility] Start: 10-14-2023 End: 10-15-2023 ambulatory Livier L Akira Facility:[facility] [place] [facility] Start: 10-13-2023 End: 10-14-2023 ambulatory Livier L Akira Facility:[facility] Start: 10-11-2023 End: 10-12-2023 ambulatory Livier L Akira Facility:[facility] Start: 10-08-2023 ambulatory Livier Akira Facility:[facility] [place] Start: 04-28-2023 End: 04-28-2023 ambulatory Connie Taylor Facility:[facility] Start: 04-28-2023 End: 04-28-2023 ambulatory MD Connie Taylor Work Phone: [facility] Work Phone: Start: 04-28-2023 End: 04-28-2023 Patient encounter procedure MD Connie Taylor Work Phone: [facility] Work Phone: Start: 12-14-2022 End: 12-14-2022 ambulatory Marko Flores Facility:[facility] Start: 12-14-2022 End: 12-14-2022 Admission to same day surgery center MD Connie Taylor Work Phone: [facility] Work Phone: Start: 12-14-2022 End: 12-14-2022 ambulatory MD Connie Taylor Work Phone: [facility] Work Phone: Start: 09-16-2022 End: 09-16-2022 ambulatory Marko Flores Other [facility] Other Start: 09-16-2022 Telephone encounter Marko Flores [facility] Start: 12-24-2021 End: 12-25-[address] CONNIE TAYLOR Facility:[facility] Start: 12-09-2021 End: 01-05-[address] CONNIE TAYLOR Facility:[facility] Start: 12-03-2021 End: 12-03-2021 ambulatory Toña Suarezdemario Other [facility] Other Start: 12-03-2021 Office outpatient visit 15 minutes Toña Calvey [facility] Start: 10-29-2021 End: 10-29-2021 ambulatory Toña Calvey Other [facility] Other Start: 10-29-2021 Office outpatient visit 15 minutes Toña Calvey [facility] Start: 09-13-2021 End: 09-13-[address] DAVID MONZON Facility:[facility] Start: 09-08-2021 End: 09-09-[address] CONNIE TAYLOR Facility:[facility] Start: 08-18-2021 End: 08-18-[address] CONNIE TAYLOR Facility:[facility] Start: 08-13-2021 End: 08-13-[address] MITCHEL BEE Facility:[facility] Start: 08-11-2021 End: 08-11-[address] CONNIE TAYLOR Facility:[facility] Start: 05-30-2021 End: 05-31-[address] CONNIE TAYLOR Facility:[facility] Start: 05-08-2021 End: 05-09-[address] CONNIE TAYLOR Facility:[facility] Procedures Date Procedure Procedure Detail Performing Clinician Start: 12-14-2022 Colonoscopy MD Connie sarabia Work Phone: Plan of Treatment Date Care Activity Detail Author Start: 12-14-2022 [facility] Immunizations Immunization Date Immunization Notes Care Provider Fa cility 02-08-2019 zoster vaccine recombinant Toña Calvey Other [facility] Other 11-02-2018 zoster vaccine recombinant Toña Calvey Other [facility] Other 10-25-2018 influenza, high dose seasonal, preservative-free Toña Calvey Other [facility] Other 10-25-2018 pneumococcal polysaccharide vaccine, 23 valent Toña Calvey Other [facility] Other 11-08-2017 pneumococcal conjuga te vaccine, 13 valent Toña Calvey Other [facility] Other 10-11-2017 influenza, high dose seasonal, preservative-free Toña Calvey Other [facility] Other Payers Date Payer Category Payer Medicare [id number] 1957 Self-pay 1957 Unknown [id number] 1950 Unknown [id number] .16.84 [id number] 1950 Unknown [id number] 1950 Unknown [id number] 2.16.84 0.1.599643.3.579.2.593 1952 Unknown [id number] .16.84 0.1.586927.3.579.2.593 1952 Unknown [id number] 2.16.84 0.1.024310.3.579.2.593 1952 Unknown [id number] 2.16.84 0.1.421960.3.579.2.593 1952 Unknown [id number] 2.16.84 0.1.778305.3.579.2.593 1952 Unknown [id number] 2.16.84 0.1.667302.3.579.2.593 1952 Unknown [id number] 2.16.840.1.166971.3.579.2.727 1952 Unknown [id number] 2.16.840.1.918563.3.579.2.727 1952 Unknown [id number] 2.16.840.1.376203.3.579.2.727 1952 Unknown [id number] 2.16.840.1.394252.3.579.2.72 1952 Unknown [id number] 2.16.840.1.792931.3.579.2.727 1952 Unknown [id number] 2.16.840.1.006706.3.579.2.727 1952 Unknown [id number] 2.16.840.1.477182.3.579.2.727 Medicare Medicare-OP No Part B [id number] Unknown [id number] 2.16.84 0.1.179190.3.579.2.593 Unknown [place] [employer]/[place] [id number] Unknown [place] [employer] [id number] Unknown [id number] 2.16.840.1.000092.3.579.2.531 Unknown [id number] 2.16.840.1.136015.3.579.2.531 Social History Date Type Detail Facility Unknown if ever smoked [facility] Other Sex Assigned At Sex Assigned At Bir th [facility] Other Start: 12-14-2022 End: 12-14-2022 Tobacco smoking status NHIS Never smoked tobacco (finding) [facility] Start: 1950 Sex Assigned At Female F [facility] Goals Date Patient Goal Desired Activity /State Progress note 01-10-2024 Note Date & Type Note Facility 01-10-2024 Note [facility] - [facility] Subjective Daya Ramsay is a 73 y.o. year old female patient being seen for 1 year follow up CAD, aortic valve stenosis, hypertension, and hyperlipidemia. She had routine labs in Sep 2023. She denies chest pain, SOB, palpitations, and lightheadedness/syncope. Patient Active Problem List Diagnosis Aortic valve stenosis Coronary atherosclerosis Edema of lower extremity Family history of aortic aneurysm Hyperlipidemia Hypertensive disorder NEWSOME (dyspnea on exertion) Type 2 diabetes mellitus without complication, without long-term current use of insulin ([facility]) Family History Problem Relation Name Age of Onset Aortic aneurysm Father Other (bicuspid cardiac valve) Sister Aortic aneurysm Paternal Grandmother Other (bicuspid cardiac valve) Son Social History Tobacco Use Smoking status: Never Smokeless tobacco: Never Substance Use Topics Alcohol use: Not Currently HPI Daya is seen in follow-up. She is a 73-year-old woman with prior history of mild coronary artery disease by prior cardiac catheterization, mild aortic valve stenosis by prior echocardiogram as well as possibly bicuspid aortic valve. She has history of hypertension, diabetes and hyperlipidemia on treatment. She has a family history of bicuspid aortic valve (father, twin sister and son); and AAA (father, uncle, grand mother and aunt all of [employer]). She has history of bilateral lower extremity edema for which I previously added furosemide. she denies chest pain, palpitations, dizziness, syncope and leg edema. she has good exercise tolerance. There is no claudication. She has dyspnea on exertion NYHA class II-III. Review of Systems Cardiovascular: Positive for dyspnea on exertion. Negative for chest pain, irregular heartbeat, leg swelling, orthopnea, palpitations and syncope. Respiratory: Negative for cough and shortness of breath. Musculoskeletal: Negative for arthritis, falls and neck pain. Gastrointestinal: Negative for diarrhea and dysphagia. Neurological: Negative for light-headedness and loss of balance. Objective Visit Vitals BP 134/78 (BP Location: Right arm, Patient Position: Sitting) Pulse 70 Ht 1.715 m (5' 7.5 ) Wt 83 kg (183 lb) SpO2 97% BMI 28.24 kg/m??? Smoking Status Never BSA 1.99 m??? Physical Exam Constitutional: Appearance: She is well-developed. She is not ill-appearing. HENT: Head: Normocephalic and atraumatic. Nose: Nose normal. Eyes: General: No scleral icterus. Pupils: Pupils are equal, round, and reactive to light. Neck: Thyroid: No thyromegaly. Vascular: No JVD. Cardiovascular: Rate and Rhythm: Normal rate and regular rhythm. Pulses: Radial pulses are 2+ on the right side and 2+ on the left side. Heart sounds: Normal heart sounds. No murmur heard. No friction rub. No gallop. Pulmonary: Effort: Pulmonary effort is normal. No respiratory distress. Breath sounds: Normal breath sounds. No wheezing or rales. Chest: Chest wall: No tenderness. Abdominal: General: Bowel sounds are normal. There is no distension. Palpations: Abdomen is soft. Tenderness: There is no abdominal tenderness. Musculoskeletal: General: No swelling. Cervical back: Neck supple. Skin: General: Skin is warm and dry. Neurological: General: No focal deficit present. Mental Status: She is alert and oriented to person, place, and time. Psychiatric: Mood and Affect: Mood normal. Behavior: Behavior is cooperative. Judgment: Judgment normal. Allergies Allergies Allergen Reactions Latex Penicillins Sulfa (Sulfonamide Antibiotics) Medications Current Outpatient Medications: alendronate (Fosamax) 70 mg tablet, Take 70 mg by mouth every 7 (seven) days., Disp: , Rfl: amLODIPine (Norvasc) 10 mg tablet, TAKE 1 TABLET BY MOUTH EVERY DAY IN THE MORNING, Disp: 90 tablet, Rfl: 3 aspirin 81 mg EC tablet, Take 1 tablet every other day by oral route., Disp: , Rfl: furosemide (Lasix) 20 mg tablet, TAKE 1 TABLET BY MOUTH EVERY DAY, Disp: 90 tablet, Rfl: 3 hydroCHLOROthiazide (HYDRODiuril) 12.5 mg tablet, TAKE 1 TABLET BY MOUTH EVERY DAY, Disp: 90 tablet, Rfl: 3 losartan (Cozaar) 50 mg tablet, TAKE 1 TABLET BY MOUTH EVERY DAY, Disp: 90 tablet, Rfl: 3 metFORMIN XR (Glucophage-XR) 500 mg 24 hr tablet, Take 1 tablet twice a day by oral route for 90 days., Disp: , Rfl: metoprolol succinate XL (Toprol-XL) 50 mg 24 hr tablet, TAKE 1 TABLET BY MOUTH EVERY DAY, Disp: 90 tablet, Rfl: 3 Pulmicort Flexhaler 90 mcg/actuation inhaler, Inhale 1 puff in the morning and at bedtime., Disp: , Rfl: SITagliptin phosphate (Januvia) 100 mg tablet, Take 1 tablet every day by oral route for 90 days., Disp: , Rfl: atorvastatin (Lipitor) 40 mg tablet, Take 1 tablet (40 mg) by mouth in the morning., Disp: 30 tablet, Rfl: 11 Recent Labs Blood testing 10/11/2023: Hemoglobin 14.2, platelets 269, potassium 4.5, BUN 27, (more content not included)... [facility] Procedure note 12-14-2022 Note Date & Type Note Facility 12-14-2022 Procedure note [facility] Evaluation note 09-16-2022 Note Date & Type Note Facility 09-16-2022 Evaluation note Encounter Date Diagnosis Assessment Notes Aug, History of colon polyps (ICD-10 - Z86.010) [facility] Other Evaluation note 12-03-2021 Note Date & Type Note Facility 12-03-2021 Evaluation note Encounter Date Diagnosis Assessment Notes Nov, Left hand pain (ICD-10 - M79.642) Nov, Contusion of bone (ICD-10 - T14.8XXA) Continue use of brace with activity and while sleeping. Order given for occupational therapy Nov, Left wrist pain (ICD-10 - M25.532) [facility] Other Evaluation note 10-29-2021 Note Date & Type Note Facility 10-29-2021 Evaluation note Encounter Date Diagnosis Assessment Notes Oct, Left hand pain (ICD-10 - M79.642) Oct, Left wrist pain (ICD-10 - M25.532) Radiographs reviewed with patient as healed previous injuries, mild degenerative changes, and no acute bony abnormality. Advised patient based on her exam and history, she likely has a bone contusion that will require more time to heal. Placed patient in cock up wrist splint to wear for activities and sleep. Instructed on alternation of ice and heat, as well as topical NSAIDs. Call with questions/subhash rns. Oct, Contusion of bone (ICD-10 - T14.8XXA) [facility] Other Evaluation note Note Date & Type Note Facility Evaluation note No assessment information availa [facility] Work Phone: History and physical note Note Date & Type Note Facility History and physical note Note Date/Time December 14, 2022 9:14am [facility] [address] [place] [address] Gastroenterology H&P Signed Patient: Daya Ramsay MR#: [id number] : 1950 Acct:[id number] Age/Sex: 72 / F Adm Date: 3 Loc: Room: Type: [facility] Attending Dr: Marko Flores MD Copies to: MD Connie Garcia MD~ Date of Service: 12/14/2022 HISTORY & PHYSICAL: Patient's history with special attention to the cardiovascular, pulmonary systems and the current problem was reviewed with the patient immediately prior to the procedure. Present medications and doses reviewed in the EMR. Allergies and pertinent laboratory tests were also reviewedat this time in the EMR. The physical examination, as below, was then performed. Indication, assessment and HPI: 72-year-old female presents for screening colonoscopy Family history of GI malignancy? No PHYSICAL EXAMINATION Mouth and Pharynx : Moist mucus membranes, normal dentition Cardiac: Regular rate, regular rhythm Pulmonary: Clear to auscultation bilaterally, no wheezing Neurological: Alert and oriented x3, no focal deficits noted Abdomen: Abdomen soft, non-tender REVIEW OF SYSTEMS Constitutional: Denies malaise, fevers Cardiovascular: Denies chest pain, palpitations Respiratory: Denies shortness of breath, wheezing Gastrointestinal: Per HPI Genitourinary: Denies dysuria, polyuria Musculoskeletal: Denies joint swelling, joint stiffness Neurological: Denies numbness, tingling Integumentary: Denies rashes, skin lesions Endocrine: Denies fatigue, weight loss Written informed consent obtained from the patient. Risks (including but not limited to perforation, infection, bloating, bleeding, need for emergent surgeryand loss of life), benefits and alternatives explained and questions answered. The patient verbalized understanding. Based on history patient is an appropriate candidate for the procedure. Marko Flores MD Documented By: Marko Flores MD 12/14/22913 Signed By: <Electronically signed by Marko Flores MD> 12/14/22913 [facility] Work Phone: History general Narrative - Reported Note Date & Type Note Facility History general Narrative - Reported Type Medical History Hypercholesterolemia Medical History Benign essential HTN Surgical History appendectomy Surgical History cyst removal x2 Surgical History C section Surgical History sinus surgery Surgical History deviated septum repair Surgical History tonsillectomy and adenoidectomy Surgical History wisdom teeth Surgical History colonoscopy Surgical History tubal ligation Surgical History hysterectomy Hospitalization History see above [facility] Hospital Discharge instructions Note Date & Type Note Facility Hospital Discharge instructions Additional Instructions DISCHARGE INSTRUCTIONS FOR COLONOSCOPY WHAT TO EXPECT: - You may feel full, gassy or cramping after your procedure. In some cases, this may be from a few hours to a day. Walking may help relieve the discomfort. - You should begin to recover from anesthesia within 1 hour of the procedure, however may feel groggy for the next 24 hours. DO's AND DON'Ts: - Call your doctor right away if you have a hard abdomen, severe pain, are passing lots of bright red blood or clots. - Call your doctor if you develop any rashes, hives or difficulty breathing. - Let your doctor know if you have not had a bowel movement by 3 days after your procedure. - If you take 81 mg aspirin for your heart it is safe to resume this medication. - If you take other blood thinner medications your doctor will instruct you when these can safely be resumed. - Do NOT drive for 24 hours. - Do NOT operate machinery such as power tools, lawn mowers, snow blowers, sewing machines, etc. for 24 hours. - Avoid alcoholic beverages and drugs for allergies, nerves, or sleep. - Do NOT stay alone. Do NOT leave your child unattended. - Do NOT make important personal or business decisions or sign any legal documents. - Eat solid foods and drink liquids in smaller amounts than usual until normal appetite returns. If you should experience an upset stomach, liquids high in sugar content (soda, Hernan-Aid, non-acid juices) are recommended. - You can resume normal activities tomorrow. FOLLOW UP & RECOMMENDATIONS: -Follow-up with Dr. Flores as needed -Notify the doctor if you have any problems. -Follow up with PCP. -Office number [phone]. [facility] Work Phone: Summary Purpose Family History No Family History Records Found Relationship Condition Age at Onset Recorded Date/T sundar father Diabetes mellitus Unknown Heart disease Unknown Not Specified Diabetes mellitus Unknown Advance Directives No Advanced Directives Records Found Advance Directive Response Recorded Date/ Time Advance Directives No September 10:09am Advance Directive Response Recorded Date/ Time Advance Directives No September 11:09am Chief Complaint and Reason for Visit Chief Complaint Hx of Colon Polyps Additional Source Comments INFORMATION SOURCE (unrecogn ized section and content) DATE CREATED AUTHOR 01/30/2022 [facility] DATE CREATED AUTHOR AUTHOR'S ORGANIZ ATION 05/08/2023 [facility] DATE CREATED AUTHOR AUTHOR'S ORGANIZ ATION 01/27/[address] [facility] DATE CREATED AUTHOR AUTHOR'S ORGANIZ ATION 01/30/2024 [facility] REASON FOR VISIT (unrecogniz ed section and content) Recheck Left Hand/WristLeft Hand/Wrist PainCOVID TESTING Care Teams (unrecognized sec tion and content) Team Status: Inactive Member Role Status Dates Connie Taylor MD Primary Care Provider Active Marko Flores MD Attending Provider Active Team Status: Active Member Role Status Dates Connie Taylor MD Primary Care Provider Active Team Status: Inactive Member Role Status Dates Connie Taylor MD Primary Care Provider Active Tanvir Ron MD Attending Provider Active Goals (unrecognized section and content) Goals may be documented in a n alternate section FOR RECORDS PERTAINING TO PATIENTS WHO ARE OR HAVE BEEN ENROLLED IN A CHEMICAL DEPENDENCY/SUBSTANCEABUSE PROGRAM, SOME INFORMATION MAY BE OMITTED. This clinical summary was aggregated from multiple sources. Caution should be exercised in using it in the provision of clinical care. This summary normalizes information from multiple sources, and as a consequence, information in this document may materially change the coding, format and clinical context of patient data. In addition, data may be omitted in some cases. CLINICAL DECISIONS SHOULD BE BASED ON THE PRIMARY CLINICAL RECORDS. [employer] [facility]. provides no warranty or guarantee of the accuracy or completeness of information in this document.
[2024-02-22] MEDS: REGADENOSON 0.4 MG/5 ML SYRINGE 0.400000000000000022 MG IV (09:33)
== END 2024-02-22 07:45 | disposition home or self-care (01) ==
LOC: NM 07:44
PROVIDERS: PCP Nurse Practitioner; Visit Provider Internal Medicine Interventional Cardiology
DX: R06.02 Shortness of breath (principal)
CPT/HCPCS: 78452; 93017; A9500; J2785

== ENCOUNTER 2024-05-26 08:48 | Outpatient (OUT) | payer MEDICARE, OTHER, SELFPAY ==
--- OUTSIDE RECORDS SUMMARY | 2024-05-26 08:59 | XMS_ITS | CCD ---
Author Organization [facility] Care Team Providers Care Bumper Straightener Name Role Phone CLAUDIA, DR CONNIE Saez Primary Care Unavailable TAYLOR, DR CONNIE aSez Admitting Unavailable TAYLOR, DR CONNIE Saez Attending Unavailable TAYLOR, DR CONNIE Saez Consulting Unavailable TAYLOR, DR CONNIE Saez Primary Care Unavailable BRITTANY, ANGELINE Consulting Unavailable BRITTANY, ANGELINE Admitting Unavailable ANGELINE SOTO Attending Unavailable TAYLOR, DR CONNIE Saez Consulting Unavailable TAYLOR, DR CONNIE Saez Admitting Unavailable TAYLOR, DR CONNIE Saez Attending Unavailable TAYLOR, DR CONNIE Saez Primary Care Unavailable ZIEBER, DR MITCHEL Jasso Consulting Unavailable TAYLOR, DR CONNIE Saez Primary Care Unavailable HAY, DR URBINA Admitting [...] Saez Consulting Unavailable CLAUDIA, DR CONNIE Saez Primary Care Unavailable TAYLOR, DR CONNIE Saez Admitting Unavailable CLAUDIA, DR CONNIE Saez Attending Unavailable TAYLOR, DR CONNIE Saez Consulting Unavailable [place], DR MARS Walters Consulting Unavailable CLAUDIA, DR [...] Care Provider MD Tanvir Ron Attending Provider [phone] MERCED HENDERSON Attending Unavailable Akira, Livier L Admitting Unavailable Akira, Livier L Attending Unavailable Akira, Livier L Referring Unavailable Akira, Livier L Admitting Unavailable Akira, Livier L Attending Unavailable Akira, Livier L Referring Unavailable Akira, Livier L Attending Unavailable Akira, Livier L Admitting Unavailable Akira, Livier L Admitting Unavailable Akira, Livier L Attending Unavailable Akira, Livier L Attending Unavailable Akira, Livier L Attending Unavailable Akira, Livier L Attending Unavailable Akira, Livier L Attending Unavailable Akira, Livier L Attending Unavailable Akira, Livier L Referring Unavailable Akira, Livier L Admitting Unavailable Allergies Allergy Classification Reported Allergen(s) Allergy Type Date of Onset Reaction(s) Facility (1 source) Aspirin Drug Allergy 11-26-20 15 [facility] Repository (4 sources) Penicillins; Translations: [PENICILLINS] Drug allergy (disorder) 03-17-20 14 Unknown Reaction [facility] Repository (1 source) Sulfonamides (Antibiotic) Drug allergy (disorder) 03-17-20 14 [facility] Repository (2 sources) Penicillin V Drug Allergy Unknown [facility] Other (2 sources) Sulfamethoxazole Drug Allergy Unknown [employer] Other (1 source) Penicillins (Antibiotic) Propensity to adverse reactions rash [employer] Other (1 source) Sulfonamides (Antibiotic) Propensity to adverse reactions hives [employer] Other (4 sources) Sulfonamides (Antibiotic); Translations: [Sulfa (Sulfonamide Antibiotics)] Allergy to substance 09-10-20 22 Unknown Reaction [facility] (1 source) Penicillins Drug allergy (disorder) 12-14-19 23 [facility] Repository (1 source) Latex; Translations: [LATEX] Propensity to adverse reactions to drug (disorder) 09-10-20 [facility] Repository (1 source) Adhesive Tape; Translations: [Tape] Propensity to adverse reactions (disorder) [facility] Repository (1 source) Penicillin; Translations: [penicillin] Drug Allergy [facility] Repository (1 source) Sulfonamides (Antibiotic); Translations: [sulfa drugs] Propensity to adverse reactions (disorder) [facility] Repository Medications Current Medications Medication Drug Class(es) Dates Sig (Normalized) Sig (Original) [id number] 200 actuat albuterol 0.09 mg/actuat metered dose [...] disease (2 sources) Atherosclerotic heart disease of [place] coronary artery without angina pectoris; Translations: [Atherosclerotic heart disease of [place] coronary artery without angina pectoris] Onset: 01-10-2024 [...] 05-13-2021 Episodic Other aftercare (1 source) Other manager intermediate (current) drug therapy; Translations: [OTH PENITENTIARY CURRENT DRUG THERAPY] Onset: 09-15-2021 Episodic Other aftercare (1 source) USP (current) use of oral hypoglycemic drugs; Translations: [MEDICAL SALES SPECIALIST USE ORAL HYPOGLYCEMIC DX] Onset: 09-15-2021 Episodic [...] Test Name Value Interpretation Reference Range Facility Lipid Panelon 04-10-2024 Cholesterol [Mass/Vol] 151 mg/dL Normal 120-200 Fi [facility] Comment on above: Performed By: #### 2 [id number] ####[facility] [address] [place] [address] Cholesterol in HDL [Mass/Vol] 44 mg/dL Invalid Interpretation Code [facility] Comment on above: Result Comment: '>= 60 LOW RISK' '<= 40 HIGH RISK' Performed By: #### 2 [id number] ####[facility] [address] [place] [address] Cholesterol in LDL [Mass/Vol] 102 mg/dL Normal <=129 [facility] Comment on above: Performed By: #### 2 235386 ####[facility] [address] [place] [address] Cholesterol in VLDL [Mass/Vol] 16 mg/dL Normal 7-40 [facility] Comment on above: Performed By: #### 2 585461 ####[facility] [address] [place] [address] Triglyceride [Mass/Vol] 81 mg/dL Normal <=149 [facility] Comment on above: Performed By: #### 2 508138 ####[facility] [address] [place] [address] Physician Orderon 04-10-2024 Physician Order [id number] #1.00TIFF Normal [facility] Cardiovascular Reporton Cardiovascular Report [id number] #1.00TIFF Normal [facility] Orders Onlyon 01-25-2024 Orders Only [id number] Daya Ramsay 1950 Date Provider Department Center 01/25/2024 LIZBET ASHBY DEBORAH [facility] Family History Problem Relation Age of Onset Aortic aneurysm Father Other Sister Aortic aneurysm Paternal Grandmother Other Son Family Status - Relation Status Age at Father Sister Paternal Grandmother Son Other Normal [facility] Echocardiographyon Echocardiography [id number] #1.00TIFF Normal [facility] Office Visiton 01-10-2024 Follow-up visit [id number] Daya Ramsay 1950 Date Provider Department [place] 01/10/2024 MERCED JENNINGS [facility] Family History Problem Relation Age of Onset Aortic aneurysm Father Other Sister Aortic aneurysm Paternal Grandmother Other Son Family Status - Relation Status Age at Father Sister Paternal Grandmother Son Other Level of Service:01616 LA OFFICE/OUTPATIENT ESTABLISHED MOD MDM 30 MIN Normal [facility] Reminderson 11-08-2023 Reminders - From: Livier Dockery To: [facility] - Clinical; Sent: 11/08/2023 08:18:23 EST Show up: 11/08/2023 08:19:00 EST Subject: Ambulatory Reminder Due Date/Time: 11/09/2023 08:18:00 EST Mammogram is normal Results: Date Result Type Result Name 11/06/2023 11:15 Radiology MA Mamm Screen w/CAD if perf and 3D Daniel pt notified mammogram was normal Normal [facility] Reminders - From: Livier Dockery To: [facility] - Clinical; Sent: 11/08/2023 08:22:02 EST Show up: 11/08/2023 08:22:00 EST Subject: Ambulatory Reminder Due Date/Time: 11/09/2023 08:21:00 EST Let Daya know her dexa scan showed osteoporosis. I will send fosamax to pharmacy of choice. Just let me know where she wants it sent. Thanks Results: Date Result Type Result Name 11/07/2023 13:01 Radiology BD Bone Density DEXA - From: Birdie Florentino (B - Clinical) To: Livier Dockery; Sent: 11/08/2023 11:48:02 EST Show up: 11/08/2023 11:47:00 EST Subject: RE: Ambulatory Reminder pt notified of message below, she would like medication sent to [facility] BD Bone Density DEXAon 11-07 BD Bone [...] V. Transcribed by: DAWN Technologist: BARBIE Cardozo [facility] MA Mamm Screen w/CAD if perf and [...] VERY IMPORTANT TO YOUR HEALTH. THE CURRENT [employer] [...] Category 1-Negative Recommendation: Normal interval follow-up Normal [facility] Consent for Treatmenton 12-0 Consent for Treatment [id number] #1.00TIFF Normal [facility] Family Medicine Office/Clini c Noteon 10-19-2023 Family [...] of clutter to prevent tripping and/or falling. [place] Advance Directives reviewed, does not wish to [...] regimen. When you (more content not included)... [facility] Comment on above: Result Comment: Elec tronically Signed By: Livier Dockery\.br\Date and Time Signed: 10/19/23 12:44 EST\.br\Electronically Co-Signed By: Fred Navas\.br\Date and Time Co-Signed: 10/14/23 16:21 EST [place] 10-15-2023 Screens [id number] 9#1.00TIFF [facility] Ambulatory Visit Summaryon 1 12-14-2022 Ambulatory Visit Summary DAYA RAMSAY :1950 Visit Date:10/14/2023 Ambulatory Visit Instructions Your Diagnosis Annual visit for general adult medical examination without abnormal findings Ovarian failure Type 2 diabetes mellitus Hyperlipidemia Hypertension Cough BMI 30.0-30.9,adult Your Care Team Attending Physician - Livier Dockery Primary Care Physician - Livier Dockery This Is Your Medications List [facility] Prescription (ACCU-CHEK GUIDE TEST STRIP) albuterol amlodipine [...] Post menopausal, Reason: E28.39, Ovarian failure Normal [facility] Patient Educationon 10-14-20 Patient Education Caregiving Fall [...] night-lights. ? Place frequently used items in cfnt-mc-gorzb places. Lower the shelves around your home [...] the way. ? Do not use floor tanzanian or wax that makes floors slippery. If [...] include working with a physical therapist or animal trainer supervisor to improve your strength, balance, and endurance. Where to find more information ? Centers for Disease Control and Prevention, [place]: www.cdc.gov ? National Almo on Aging: www.margaret.nih.gov Contact a health care [...] your health ca (more content not included)... Normal [facility] Consent for Treatmenton 09-29 Consent for Treatment [id number] #1.00TIFF [facility] Reminderson 10-13-2023 Reminders - From: Livier Dockery To: [facility] - Clinical; Sent: 10/13/2023 14:17:52 EST Show up: 10/13/2023 14:18:00 EST Subject: Ambulatory Reminder Due Date/Time: 10/14/2023 14:17:00 EST Chest x ray negative. does not have pneumonia. is she feeling any better yet? Results: Date Result Type Result Name 10/13/2023 13:56 Radiology XR Chest 2 Views - From: Birdie Florentino ([facility] - Clinical) To: Livier Dockery; Sent: 10/13/2023 15:16:46 EST Show up: 10/13/2023 15:16:00 EST Subject: RE: Ambulatory Reminder pt states yesterday she felt pretty good today she hasn't felt good chest feels tight couldn't stop coughing she has used her daily inhaler and her rescue inhaler. Normal [facility] XR Chest 2 Viewson 3 XR Chest [...] mGy = na DAP = na Normal [facility] Ambulatory Visit Summaryon 1 12-11-2022 Ambulatory Visit Summary DAYA RAMSAY :1950 Visit Date:10/11/2023 Ambulatory Visit Instructions Your Diagnosis Wellness examination Hypertension Hyperlipidemia Type 2 diabetes mellitus Breast cancer screening by mammogram Cough Wheezing Your Care Team Attending Physician - Livier Dockery Primary Care Physician - Livier Dockery This Is [facility] Medications List [facility] Pres[facility] (ACCU-CHEK GUIDE TEST STRIP) amlodipine (amLODIPine [...] Follow-Up Appointments 2022 3:30 PM EST Where: [facility] [place] Invalid Interpretation Code Breast cancer screening by mammogram, pp_set_radio logy_subspec ialty, Required & Missing, [facility]\.br\ XR Chest 2 Views, 10/11/23, Routine, Order for future visit, Transport Mode: Ambulatory, Reason: Cough, No, Breast cancer screening by mammogram [facility] Auto Diffon 10-11-2023 Basophils/100 WBC (Bld) 0.5 % Normal 0.0-2.0 [facility] Comment on above: Order Comment: Order Added by Discern Expert. Performed By: #### 1 [id number], 6996370, 2723738, 7765922, 757613058, 6290934, 2003181 ####[facility] [address] [place] [address] Basophils/Leukocytes Auto (Bld) [Pure # fraction] 0.0 E9/L Normal 0.0-0.2 [facility] Comment on above: Order Comment: Order Added by Discern Expert. Performed By: #### 1 7841312, 9674902, 0903528, 0775857, 065202269, 4388333, 3678258 ####[facility] [address] [place] [address] Eosinophils/100 WBC (Bld) 2.1 % Normal 0.0-8.0 [facility] Comment on above: Order Comment: Order Added by Discern Expert. Performed By: #### 1 4096373, 6410052, 6474390, 4257320, 650599686, 1399960, 2897434 ####[facility] [address] [place] [address] Eosinophils/Leukocytes Auto (Bld) [Pure # fraction] 0.2 E9/L Normal 0.0-0.5 [facility] Comment on above: Order Comment: Order Added by Discern Expert. Performed By: #### 1 4242504, 1855892, 2973763, 8804343, 678665524, 0562339, 0163331 ####[address] [place] [address] Lymphocytes/100 WBC (Bld) 22.1 % Normal 14.0-50.0 [facility] Comment on above: Order Comment: Order Added by Discern Expert. Performed By: #### 1 7383514, 1134096, 2486129, 5822635, 783897432, 3429622, 5696824 ####[address] [address] Lymphocytes/Leukocytes Auto (Bld) [Pure # fraction] 1.7 E9/L Normal 1.0-4.0 [facility] Comment on above: Order Comment: Order Added by Discern Expert. Performed By: #### 1 4715859, 4286247, 2875253, 6308827, 890855023, 9345026, 7194528 ####[address] [address] Monocytes/100 WBC (Bld) 7.8 % Normal 4.0-14.0 [facility] Comment on above: Order Comment: Order Added by Discern Expert. Performed By: #### 1 8685787, 8622251, 5337648, 8042425, 917481577, 0438583, 5533177 ####[address] [place] [address] Monocytes/Leukocytes Auto (Bld) [Pure # fraction] 0.6 E9/L Normal 0.2-1.0 [facility] Comment on above: Order Comment: Order Added by Tosha Expert. Performed By: #### 1 6378561, 0572866, 3701453, 9942763, 610627623, 1779068, 7265644 ####[address] [place] [address] Neutrophils/100 WBC (Bld) 67.5 % Normal 36.0-75.0 [facility] Comment on above: Order Comment: Order Added by Discern Expert. Performed By: #### 1 7589812, 7704815, 9985987, 1883151, 467860697, 7762933, 1855691 ####[address] [place] [address] Neutrophils/Leukocytes Auto (Bld) [Pure # fraction] 5.3 E9/L Normal 2.0-7.5 [facility] Comment on above: Order Comment: Order Added by Discern Expert. Performed By: #### 1 1008000, 3723015, 9988204, 1459612, 536575636, 7963596, 6121018 ####[address] [address] CBC w/ Auto Diffon 3 Erythrocyte distribution width (RBC) [Ratio] 14.5 % High 10.9-14.2 [facility] Comment on above: Performed By: #### 1 8460535, 8073497, 2797032, 2033681, 667765254, 5476998, 5817787 ####[address] [address] Hematocrit (Bld) [Volume fraction] 42.8 % Normal 34.0-46.0 [facility] Comment on above: Performed By: #### 1 2386717, 4734194, 4825299, 1707898, 040122682, 9118685, 7327236 ####[address] [place] [address] Hemoglobin (Bld) [Mass/Vol] 14.2 g/dL Normal 12.0-16.0 [facility] Comment on above: Performed By: #### 1 0845405, 8036751, 0064240, 9714182, 444348776, 0056881, 0134390 ####[address] [address] MCH (RBC) [Entitic mass] 29.9 pg Normal 27.0-34.0 [facility] Comment on above: Performed By: #### 1 8079748, 0832744, 5998809, 6611667, 407391812, 4413990, 3524002 ####[facility] [address] [place] [address] MCHC (RBC) [Mass/Vol] 33.2 g/dL Normal 31.4-36.0 [facility] Comment on above: Performed By: #### 1 5714374, 7762037, 1758919, 9118936, 168115636, 4665195, 3492249 ####[address] [place] [address] MCV (RBC) [Entitic vol] 89.9 fL Normal 80.0-100.0 [facility] Comment on above: Performed By: #### 1 2081810, 6837599, 4761852, 2162447, 409995431, 0860014, 5142822 ####[address] [address] Platelet mean volume (Bld) [Entitic vol] 8.8 fL Normal 6.4-10.8 [facility] Comment on above: Performed By: #### 1 1883367, 1918203, 6773831, 1997616, 275234454, 4277425, 7322079 ####[address] [address] Platelets (Bld) [#/Vol] 269.0 E9/L Normal 150.0-500.0 [facility] Comment on above: Performed By: #### 1 3928078, 3236535, 9183804, 9553883, 969348853, 2811188, 1643420 ####[address] [address] RBC (Bld) [#/Vol] 4.8 E12/L Normal 4.3-5.9 [facility] Comment on above: Performed By: #### 1 3787662, 7232700, 8026852, 2746912, 135709055, 4806417, 6057017 ####[facility] [address] [place] [address] WBC corrected for nucl RBC Auto (Bld) [#/Vol] 7.9 E9/L Normal 4.0-11.0 [facility] Comment on above: Performed By: #### 1 0480136, 0407166, 2939614, 8301695, 579229114, 6786747, 9665340 ####[facility] [address] [place] [address] CMPon 10-11-2023 Albumin [Mass/Vol] 3.9 g/dL Normal 3.3-5.0 [facility] Comment on above: Performed By: #### 1 7252072, 4864882, 4342380, 1992822, 378608684, 0721797, 2222979 ####[address] [place] [address] Albumin/Globulin (S) [Mass conc ratio] 1.4 Normal 1.1-2.2 [facility] Comment on above: Performed By: #### 1 9206834, 2109327, 7836413, 2985891, 760786732, 5119158, 2311398 ####[address] [place] [address] ALP [Catalytic activity/Vol] 70 Int._Unit/L Normal 21-98 [facility] Comment on above: Performed By: #### 1 4323357, 7431494, 0904071, 7316802, 775839068, 7308843, 0655074 ####[address] [place] [address] ALT No additional P-5'-P [Catalytic activity/Vol] 20 Int._Unit/L Normal 6-46 [facility] Comment on above: Performed By: #### 1 6614586, 3928120, 9126058, 9665629, 930199698, 2517209, 5576693 ####[facility] [address] [place] [address] Anion gap [Moles/Vol] 14 mmol/L Normal 6-16 [facility] Comment on above: Performed By: #### 1 0604836, 2138252, 5698760, 4013936, 441447820, 5791684, 9796397 ####[facility] [address] [place] [address] AST [Catalytic activity/Vol] 21 Int._Unit/L Normal 5-43 [facility] Comment on above: Performed By: #### 1 8346430, 9050464, 9644112, 8216516, 892429752, 4901941, 2311205 ####[facility] [address] [place] [address] Bilirubin [Mass/Vol] 0.5 mg/dL Normal 0.0-1.1 [facility] Comment on above: Performed By: #### 1 7426950, 4473532, 0071776, 8374860, 682943860, 7818241, 1126434 ####[facility] [address] [place] [address] Calcium [Mass/Vol] 9.8 mg/dL Normal 8.9-11.1 [facility] Comment on above: Performed By: #### 1 8537170, 2543900, 1524173, 2400911, 934356623, 4854771, 8081888 ####[facility] [address] [place] [address] Chloride [Moles/Vol] 104 mmol/L Normal 101-111 [facility] Comment on above: Performed By: #### 1 1805632, 5492601, 8651574, 3451227, 840648794, 3544025, 6427449 ####[facility] [address] [place] [address] CO2 [Moles/Vol] 26 mmol/L Normal 21-31 [facility] Comment on above: Performed By: #### 1 3262392, 9091694, 3738394, 4172706, 911379020, 2492390, 6496751 ####[facility] [address] [place] [address] Creatinine [Mass/Vol] 0.9 mg/dL Normal 0.5-1.3 [facility] Comment on above: Performed By: #### 1 5683839, 8489872, 9710886, 7809676, 802623377, 0460852, 9113935 ####[facility] [address] [place] [address] Globulin (S) [Mass/Vol] 2.7 g/dL Normal 1.4-4.0 [facility] Comment on above: Performed By: #### 1 6197316, 4666031, 0735961, 4584574, 575215066, 3235779, 6558657 ####[facility] [address] [place] [address] Glucose [Mass/Vol] 112 mg/dL Normal 55-199 [facility] Comment on above: Result Comment: If t his glucose result represents a fasting glucose, interpretation should refer to the following reference range: 55-99 mg/dL Performed By: #### 1 7734046, 7649651, 5370851, 6787475, 784384218, 6283552, 0367444 ####[facility] [address] [place] [address] Potassium [Moles/Vol] 4.5 mmol/L Normal 3.5-5.3 [facility] Comment on above: Performed By: #### 1 5328610, 0548205, 0513296, 6590251, 508109459, 3535709, 4789347 ####[facility] [address] [place] [address] Protein [Mass/Vol] 6.6 g/dL Normal 6.0-7.8 [facility] Comment on above: Performed By: #### 1 0617161, 0726980, 4958451, 5363480, 198700573, 8807187, 8442766 ####[facility] [address] [place] [address] Sodium [Moles/Vol] 139 mmol/L Normal 135-145 [facility] Comment on above: Performed By: #### 1 9218737, 0707881, 9425590, 1507419, 389955263, 9253701, 8032949 ####[facility] [address] [place] [address] Urea nitrogen [Mass/Vol] 27 mg/dL High 5-21 [facility] Comment on above: Performed By: #### 1 0121879, 1941904, 2943145, 8649717, 014438521, 3035907, 1164456 ####[facility] [address] [place] [address] Urea nitrogen/Creatinine [Mass ratio] 30 No Units High 10-20 [facility] Comment on above: Performed By: #### 1 7557359, 5521355, 0743557, 0472213, 609647467, 0299528, 7007794 ####[facility] [address] [place] [address] Family Medicine Office/Clini c Noteon 10-11-2023 Family Medicine Office/Clinic Note HPI Staff Pt is a 73 yo f presenting to establish care with Livier today. Establish Care: History: Last provider: Claudia Any recent labs: no Health Maintenance UTD: [place] [facility]: 10/20/22 Pelvic/Pap: Aged out Flu- DUE [...] day(s), # 6 tab(s), Refills(s) 0, Pharmacy: [facility]/pharmacy #[id number], 170, cm, 10/11/23 10:43:00 EST, Height/Length Dosing, 86.9, kg, 10/11/23 10:43:00 EST, Weight Dosing benzonatate, 200 mg = 1 cap(s), Oral, TID, X 7 day(s), # 21 cap(s), Refills(s) 0, Pharmacy: [facility]/pharmacy #6177, 170, cm, 10/11/23 10:43:00 EST, Height/Length Dosing, 86.9, kg, 10/11/23 10:43:00 EST, Weight Dosing budesonide, 1 inh, Inhalation, BID, 1 EA, [facility](s) [facility], cm, 10/11/23 10:43:00 EST, Height/Length Dosing, 86.9, kg, 10/11/23 10:43:00 EST, Weight Dosing methylPREDNISolone, = 1 packet(s), Oral, As Directed, as directed on package labeling, X 6 day(s), # 21 tab(s), Refills(s) 0, Pharmacy: [facility]/pharmacy #6177, 170, cm, 10/11/23 10:43:00 EST, Height/Length [...] day(s), # 6 tab(s), Refills(s) 0, Pharmacy: [facility]/pharmacy #6177, 170, cm, 10/11/23 10:43:00 EST, Height/Length Dosing, 86.9, kg, 10/11/23 10:43:00 EST, Weight Dosing benzonatate, 200 mg = 1 cap(s), Oral, TID, X 7 day(s), # 21 cap(s), Refills(s) 0, Pharmacy: [facility]/pharmacy #6177, 170, cm, 10/11/23 10:43:00 EST, Height/Length Dosing, 86.9, kg, 10/11/23 10:43:00 EST, Weight Dosing budesonide, 1 inh, Inhalation, BID, 1 EA, Refill(s) 11, [facility]/pharmacy #6177, 170, cm, 10/11/23 10:43:00 EST, Height/Length Dosing, 86.9, kg, 10/11/23 10:43:00 EST, Weight Dosing methylPREDNISolone, = 1 packet(s), Oral, As Directed, as directed on package labeling, X 6 day(s), # 21 tab(s), Refills(s) 0, Pharmacy: [facility]/pharmacy #6177, 170, cm, 10/11/23 10:43:00 EST, Height/Length Dosing, 86.9, kg, 10/11/23 10:43:00 EST, Weight Dosing CBC w/ Auto Diff Comprehensive Metabolic Panel HgbA1c Lipid Panel Thyroid Stimulating Hormone 3. Hyperlipidemia (E78.5: Hyperlipidemia, unspecified) lipid panel drawn in office today Ordered: azithromycin, = 1 packet(s), Oral, As Directed, as directed on package labeling, X 5 day(s), # 6 tab(s), Refills(s) 0, Pharmacy: [facility]/pharmacy #[id number], 170, cm, 10/11/23 10:43:00 EST, Height/Length Dosing, 86.9, kg, 10/11/23 10:43:00 EST, Weight Dosing benzonatate, 200 mg = 1 cap(s), Oral, TID, X 7 day(s), # 21 cap(s), Refills(s) 0, [id number], 170, cm, 10/11/23 10:43:00 EST, Height/Length Dosing, 86.9, kg, 10/11/23 10:43:00 EST, Weight Dosing budesonide, 1 inh, Inhalation, BID, 1 EA, Refill(s) 11, [id number], 170, cm, 10/11/23 10:43:00 EST, Height/Length Dosing, 86.9, kg, 10/11/23 10:43:00 EST, Weight Dosing methylPREDNISolone, = 1 packet(s), Oral, As Directed, as directed on package labeling, X 6 day(s), # 21 tab(s), Refills(s) 0, [id number], 170, cm, 10/11/23 10:43:00 EST, Height/Length Dosing, 86.9, kg, 10/11/23 10:43:00 EST, Weight Dosing CBC w/ Auto Diff (more content not included)... Normal [facility] Comment on above: Result Comment: Elec tronically Signed By: Livier Dockery\.br\Date and Time Signed: 10/11/23 11:17 EST [id number] 10-11-2023 HbA1c (Bld) [Mass fraction] 6.1 % High <=5.9 [facility] Comment on above: Performed By: #### 1 [id number], [id number], [id number], [id number], [id number], [id number], [id number] ####[facility] [address] [place] [address] Lipid Panelon 10-11-2023 Cholesterol [Mass/Vol] 165 mg/dL Normal 120-200 [facility] Comment on above: Performed By: #### 1 [id number], [id number], 0469704, [id number], [id number], [id number], [id number] ####[facility] [address] [place] [address] Cholesterol in HDL [Mass/Vol] 49 mg/dL Invalid Interpretation Code [facility] Comment on above: Result Comment: HDL > or equal to 60 mg/dL: Low cardiovascular risk HDL < 40 mg/dL : High cardiovascular risk Performed By: #### 1 [id number], [id number], [id number], [id number], 9941482, [id number] ####[facility] [address] [place] [address] Cholesterol in LDL [Mass/Vol] 106 mg/dL Normal <=129 [facility] Comment on above: Performed By: #### 1 [id number], 9672969, 6176701, 5246162, [id number], 6979921, 3787554 ####[facility] [address] [place] [address] Cholesterol in VLDL [Mass/Vol] 15 mg/dL Normal 7-40 [facility] Comment on above: Performed By: #### 1 [id number], [id number], 9093842, 7496624, [id number], 9507858, 4668356 ####[facility] [address] [place] [address] Triglyceride [Mass/Vol] 77 mg/dL Normal <=149 [facility] Comment on above: Performed By: #### 1 [id number], 9697534, 5665278, 5721959, [id number], 0710538, 9448793 ####[facility] [address] [place] [address] TSHon 10-11-2023 TSH Qn 0.30 m[IU]/L Low 0.34-5.60 [facility] Comment on above: Performed By: #### 1 [id number], 6899549, 7247391, 4852902, [id number], 2089156, 2780152 ####[facility] [address] [place] [address] eGFRon 10-11-2023 GFR/1.73 sq M.predicted among non-blacks MDRD (S/P/Bld) [Vol rate/Area] 68 mL/min/1.73 m2 Normal >=59 [facility] Comment on above: Order Comment: Order added by Discern Expert. Result Comment: Program Rep len kidney disease could be indicated at eGFR's of less than 60 mL/min/1.73m2. Kidney failure is indicated at less than 15 mL/min/1.73m2. Performed By: #### 1 [id number], [id number], 3936740, 5967205, [id number], 7679998, 1377796 ####[facility] [address] [place] [address] Alanine aminotransferase [En zymatic activity/volume] in Serum or PlasmaOrdered By: Mary Jane Perez on 04-28-2023 ALT [Catalytic activity/Vol] 15 U/L 7-52 [facility] Albumin [Mass/volume] in Ser um or Plasma by Bromocresol green (BCG) dye binding methoOrdered By: Mary Jane Perez on 04-28-2023 Albumin BCG dye [Mass/Vol] 3.9 g/dL 3.5-5.7 [facility] Alkaline phosphatase [Enzyma tic activity/volume] in Serum or PlasmaOrdered By: Mary Jane Perez on 04-28-2023 ALP [Catalytic activity/Vol] 68 U/L 34-104 [facility] Aspartate aminotransferase [ Enzymatic activity/volume] in Serum or PlasmaOrdered By: Mary Jane Perez on 04-28-2023 AST [Catalytic activity/Vol] 15 U/L 13-39 [facility] Basophils Auto (Bld) [#/Vol] Ordered By: Mary Jane Perez on 04-28-2023 Basophils (Bld) [#/Vol] 0.1 10*3/uL 0.0-0.2 [facility] Basophils/100 WBC Auto (Bld) Ordered By: Mary Jane Perez on 04-28-2023 Basophils/100 WBC (Bld) 1.0 % . [facility] Bilirubin.total [Mass/volume ] in Serum or PlasmaOrdered By: Mary Jane Perez on 04-28-2023 Bilirubin [Mass/Vol] 0.6 mg/dL 0.3-1.0 [facility] Calcium [Mass/volume] in Ser um or PlasmaOrdered By: Mary Jane Perez on 04-28-2023 Calcium [Mass/Vol] 9.3 mg/dL 8.6-10.3 [facility] Carbon dioxide, total [Moles /volume] in Serum or PlasmaOrdered By: Mary Jane Perez on 04-28-2023 CO2 [Moles/Vol] 28.6 mmol/L 21.0-31.0 [facility] Chloride [Moles/volume] in S juan pablo or PlasmaOrdered By: Mary Jane Perez on 04-28-2023 Chloride [Moles/Vol] 106 mmol/L 98-107 [facility] Cholesterol [Mass/volume] in Serum or PlasmaOrdered By: Mary Jane Perez on 04-28-2023 Cholesterol [Mass/Vol] 151 mg/dL 140-[address] [facility] Comment on above: Chol less than 200 m g/dl low riskChol 201-239 mg/dl borderline riskChol 240 mg/dl and greater high risk Cholesterol in LDL Calc [Mas s/Vol]Ordered By: Mary Jane Perez on 04-28-2023 Cholesterol in LDL [Mass/Vol] 91 mg/dL 0-100 [facility] Comment on above: LDL ATP III CLASSIFI CATIONLDL less than 100 mg/dL OptimalLDL 100-129 mg/dL Near or above optimalLDL 130-159 mg/dL Borderline highLDL 160-189 mg/dL HighLDL greater than 189 mg/dL Very high Cholesterol in VLDL Calc [Ma ss/Vol]Ordered By: Mary Jane Perez on 04-28-2023 Cholesterol in VLDL [Mass/Vol] 16 mg/dL [facility] Complete Blood Count Auto Di ffon 04-28-2023 Basophils (Bld) [#/Vol] 0.1 10*3/uL Normal 0.0-0.2 [facility] Comment on above: Result Comment: PERF ORMED BY: [place] [address] PATHOLOGIST INTERNAL AUDITOR GRIS CANELA M.D. Performed By: #### C BC #### [address] Basophils/100 WBC (Bld) 1.0 % Normal . [facility] Comment on above: Performed By: #### C BC #### [facility] [address] Eosinophils (Bld) [#/Vol] 0.2 10*3/uL Normal 0.0-0.45 [facility] Comment on above: Performed By: #### C BC #### [facility] [address] Eosinophils/100 WBC (Bld) 2.5 % Normal . [facility] Comment on above: Performed By: #### C BC #### [facility] [address] Erythrocyte distribution width (RBC) [Ratio] 13.9 % Normal 11.9-15.3 [facility] Comment on above: Performed By: #### C BC #### [address] Hematocrit (Bld) [Volume fraction] 39.8 % Normal 34.0-46.4 [facility] Comment on above: Performed By: #### C BC #### [facility] [address] Hemoglobin (Bld) [Mass/Vol] 13.3 g/dL Normal 11.8-15.4 [facility] Comment on above: Performed By: #### C BC #### [facility] [address] Lymphocytes (Bld) [#/Vol] 1.9 10*3/uL Normal 1.00-4.8 [facility] Comment on above: Performed By: #### C BC #### [facility] [address] [place] [address] [place] Lymphocytes/100 WBC (Bld) 27.5 % Normal . [facility] Comment on above: Performed By: #### C BC #### [address] MCH (RBC) [Entitic mass] 29.3 pg Normal 24.7-34.3 [facility] Comment on above: Performed By: #### C BC #### [facility] [address] MCV (RBC) [Entitic vol] 87.7 fL Normal 80-100 [facility] Comment on above: Performed By: #### C BC #### [facility] [address] Mean Corpuscular HGB Conc 33.5 g/dL Normal 32.0-35.0 [facility] Comment on above: Performed By: #### C BC #### [facility] [address] Monocytes (Bld) [#/Vol] 0.5 10*3/uL Normal 0.0-0.8 [facility] Comment on above: Performed By: #### C BC #### [address] Monocytes/100 WBC (Bld) 7.8 % Normal . [facility] Comment on above: Performed By: #### C BC #### [address] Neutrophils (Bld) [#/Vol] 4.2 10*3/uL Normal 1.8-7.7 [facility] Comment on above: Performed By: #### C BC #### [address] Neutrophils/100 WBC (Bld) 61.2 % Normal . [facility] Comment on above: Performed By: #### C BC #### [address] NRBC% 0.1 /100{WBC} Normal 0-0.5 [facility] Comment on above: Performed By: #### C BC #### [address] Platelet mean volume (Bld) [Entitic vol] 8.9 fL Normal 6.3-10.7 [facility] Comment on above: Performed By: #### C BC #### [place] [address] [place] Platelets (Bld) [#/Vol] 230 10*3/uL Normal 150-450 [facility] Comment on above: Performed By: #### C BC #### [address] RBC (Bld) [#/Vol] 4.54 10*6/uL Normal 3.60-5.00 [facility] Comment on above: Performed By: #### C BC #### [address] WBC (Bld) [#/Vol] 6.9 10*3/uL Normal 3.8-11.6 [facility] Comment on above: Performed By: #### C BC #### [address] Comprehensive Metabolic Pane anat 04-28-2023 Albumin [Mass/Vol] 3.9 g/dL Normal 3.5-5.7 [facility] Comment on above: Performed By: #### C MP, LIPID #### [address] Albumin/Globulin [Mass ratio] 2.0 {ratio} Normal [facility] Comment on above: Performed By: #### C MP, LIPID #### [address] ALP [Catalytic activity/Vol] 68 U/L Normal 34-104 [facility] Comment on above: Performed By: #### C MP, LIPID #### [address] ALT [Catalytic activity/Vol] 15 U/L Normal 7-52 [facility] Comment on above: Performed By: #### C MP, LIPID #### [address] Anion gap [Moles/Vol] 9.4 mmol/L Normal 6.0-15.0 [facility] Comment on above: Performed By: #### C MP, LIPID #### [address] AST [Catalytic activity/Vol] 15 U/L Normal 13-39 [facility] Comment on above: Performed By: #### C MP, LIPID #### [facility] [address] [place] [address] [place] Bilirubin [Mass/Vol] 0.6 mg/dL Normal 0.3-1.0 [facility] Comment on above: Performed By: #### C MP, LIPID #### [facility] [address] Calcium [Mass/Vol] 9.3 mg/dL Normal 8.6-10.3 [facility] Comment on above: Performed By: #### C MP, LIPID #### [facility] [address] Chloride [Moles/Vol] 106 mmol/L Normal 98-107 [facility] Comment on above: Performed By: #### C MP, LIPID #### [facility] [address] CO2 [Moles/Vol] 28.6 mmol/L Normal 21.0-31.0 [facility] Comment on above: Performed By: #### C MP, LIPID #### [facility] [address] Creatinine [Mass/Vol] 0.89 mg/dL Normal 0.60-1.20 [facility] Comment on above: Performed By: #### C MP, LIPID #### [facility] [address] [place] [address] [place] GFR/1.73 sq M.predicted MDRD (S/P/Bld) [Vol rate/Area] mL/min/{1.73_m2} Normal [facility] Comment on above: Performed By: #### C MP, LIPID #### [facility] [address] [place] [address] [place] Globulin (S) [Mass/Vol] 2.0 g/dL Normal [facility] Comment on above: Performed By: #### C MP, LIPID #### [facility] [address] [place] [address] [place] Glucose [Mass/Vol] 114 mg/dL High 70-100 [facility] Comment on above: Result Comment: [place] Glucose Reference Range is dependent on time and content of last meal. Glucose of more than 200 mg/dL in a nonstressed, ambulatory subject supports the diagnosis of Diabetes Mellitus. ADA recommended reference range Performed By: #### C MP, LIPID #### [facility] [address] [place] [address] [place] Potassium [Moles/Vol] 4.0 mmol/L Normal 3.5-5.1 [facility] Comment on above: Performed By: #### C MP, LIPID #### [facility] [address] [place] [address] [place] Protein [Mass/Vol] 5.9 g/dL Low 6.4-8.9 [facility] Comment on above: Performed By: #### C MP, LIPID #### [facility] [address] [place] [id number] [place] Sodium [Moles/Vol] 140 mmol/L Normal 136-145 [facility] Comment on above: Performed By: #### C MP, LIPID #### [facility] [address] [place] [id number] [place] Urea nitrogen [Mass/Vol] 28 mg/dL High 7-25 [facility] Comment on above: Performed By: #### C MP, LIPID #### [facility] [address] [place] [id number] [place] Creatinine [Mass/volume] in Serum or PlasmaOrdered By: Mary Jane Perez on 04-28-2023 Creatinine [Mass/Vol] 0.89 mg/dL 0.60-1.20 [facility] Creatinine [Mass/volume] in UrineOrdered By: Tanvir Ron on 04-28-2023 Creatinine (U) [Mass/Vol] 135.0 mg/dL 11.0-20.0 [facility] Eosinophils Auto (Bld) [#/Vo l]Ordered By: Mary Jane Perez on 04-28-2023 Eosinophils (Bld) [#/Vol] 0.2 10*3/uL 0.0-0.45 [facility] Eosinophils/100 WBC Auto (Bl d)Ordered By: Mary Jane Perez on 04-28-2023 Eosinophils/100 WBC (Bld) 2.5 % . [facility] Erythrocyte distribution wid th Auto (RBC) [Ratio]Ordered By: Mary Jane Perez on 04-28-2023 Erythrocyte distribution width (RBC) [Ratio] 13.9 % 11.9-15.3 [facility] Globulin Calc (S) [Mass/Vol] Ordered By: Mary Jane Perez on 04-28-2023 Globulin (S) [Mass/Vol] 2.0 g/dL [facility] Glucose [Mass/volume] in Ser um or PlasmaOrdered By: Mary Jane Perez on 04-28-2023 Glucose [Mass/Vol] 114 mg/dL 70-100 [facility] Comment on above: ADA recommended refe rence rangeRandom Glucose Reference Range is dependent on time and content of last meal. Glucose of more than 200 mg/dL in a nonstressed, ambulatory subject supports the diagnosis of Diabetes Mellitus. Hematocrit Auto (Bld) [Volum e fraction]Ordered By: Mary Jane Perez on 04-28-2023 Hematocrit (Bld) [Volume fraction] 39.8 % 34.0-46.4 [facility] Hemoglobin [Mass/volume] in BloodOrdered By: Mary Jane Perez on 04-28-2023 Hemoglobin (Bld) [Mass/Vol] 13.3 g/dL 11.8-15.4 [facility] Leukocytes [#/volume] correc laura for nucleated erythrocytes in Blood by Automated counOrdered By: Mary Jane Perez on 04-28-2023 WBC corrected for nucl RBC Auto (Bld) [#/Vol] 6.9 10*3/uL 3.8-11.6 [facility] Lipid Panelon 04-28-2023 Cholesterol [Mass/Vol] 151 mg/dL Normal 140-[address] [facility] Comment on above: Result Comment: Chol less than 200 mg/dl low risk Chol 201-239 mg/dl borderline risk Chol 240 mg/dl and greater high risk Performed By: #### C MP, LIPID #### [address] Cholesterol in HDL [Mass/Vol] 43 mg/dL Normal 35-85 [facility] Comment on above: Result Comment: HDL CHOL ATP-III CLASSIFICATION Cardiovascular Risk HDL > or equal to 60 mg/dL LOW HDL < 40 mg/dL HIGH Performed By: #### C MP, LIPID #### [facility] [address] Cholesterol.total/Lakesha sterol in HDL [Mass ratio] 3.5 {ratio} Normal <5.0 [facility] Comment on above: Result Comment: PERF ORMED BY: [place] [address] PATHOLOGIST INTERNAL AUDITOR GRIS CANELA M.D. Performed By: #### C MP, LIPID #### [address] LDL Cholesterol,Calculated 91 mg/dL Normal 0-100 [facility] Comment on above: Result Comment: LDL ATP III CLASSIFICATION LDL less than 100 mg/dL Optimal LDL 100-129 mg/dL Near or above optimal LDL 130-159 mg/dL Borderline high LDL 160-189 mg/dL High LDL greater than 189 mg/dL Very high Performed By: #### C MP, LIPID #### [facility] [address] [place] [address] Triglyceride w/Reflex 83 mg/dL Normal 0-149 [facility] Comment on above: Result Comment: TRIG ATP III CLASSIFICATION TRIG less than 150 mg/dL Normal TRIG 150-199 mg/dL Borderline high TRIG 200-500 mg/dL High TRIG greater than 500 mg/dL Very high Standard traceable to the Center for Disease Conrtrol and Prevention (CDC) test method. Performed By: #### C MP, LIPID #### [facility] [address] VLDL CHOLESTEROL 16 mg/dL Normal [facility] Comment on above: Performed By: #### C MP, LIPID #### [place] [address] [place] Lymphocytes Auto (Bld) [#/Vo l]Ordered By: Mary Jane Perez on 04-28-2023 Lymphocytes (Bld) [#/Vol] 1.9 10*3/uL 1.00-4.8 [facility] Lymphocytes/100 WBC Auto (Bl d)Ordered By: Mary Jane Perez on 04-28-2023 Lymphocytes/100 WBC (Bld) 27.5 % . [facility] MCH Auto (RBC) [Entitic mass ]Ordered By: Mary Jane Perez on 04-28-2023 MCH (RBC) [Entitic mass] 29.3 pg 24.7-34.3 [facility] MCHC Auto (RBC) [Mass/Vol]Or dered By: Mary Jane Perez on 04-28-2023 MCHC (RBC) [Mass/Vol] 33.5 g/dL 32.0-35.0 [facility] MCV Auto (RBC) [Entitic vol] Ordered By: Mary Jane Perez on 04-28-2023 MCV (RBC) [Entitic vol] 87.7 fL 80-100 [facility] MicroAlb Creat Ratio,Uon Albumin DL <= 20 mg/L (U) [Mass/Vol] 2.8 mg/dL High 0.0-1.8 [facility] Comment on above: Performed By: #### U RMACRERAT, [id number], PHOS #### [facility] [address] [place] [address] Creatinine, Urine (Random) 135.0 mg/dL High 11.0-20.0 [facility] Comment on above: Performed By: #### U RMACRERAT, [id number], PHOS #### [facility] [address] [place] [address] Microalbumin/Creatinine Ratio 20.0 mg/g Normal 0.0-30.0 [facility] Comment on above: Result Comment: 30-3 00 mg/g indicates an increased risk for diabetic nephropathy. Greater than 300 mg/g is consistent with clinical nephropathy. (Am. J. Kidney Disease 1995, 25:107) PERFORMED BY: [place] [address] PATHOLOGIST INTERNAL AUDITOR GRIS CANELA M.D. Performed By: #### U RMACRERAT, [id number], PHOS #### [facility] [address] [place] [id number] [facility] Microalbumin [Mass/volume] i n UrineOrdered By: Tanvir Ron on 04-28-2023 Albumin DL <= 20 mg/L (U) [Mass/Vol] 2.8 mg/dL 0.0-1.8 [facility] Monocytes Auto (Bld) [#/Vol] Ordered By: Mary Jane Perez on 04-28-2023 Monocytes (Bld) [#/Vol] 0.5 10*3/uL 0.0-0.8 [facility] Monocytes/100 WBC Auto (Bld) Ordered By: Mary Jane Perez on 04-28-2023 Monocytes/100 WBC (Bld) 7.8 % . [facility] Neutrophils Auto (Bld) [#/Vo l]Ordered By: Mary Jane Perez on 04-28-2023 Neutrophils (Bld) [#/Vol] 4.2 10*3/uL 1.8-7.7 [facility] Neutrophils/100 WBC Auto (Bl d)Ordered By: Mary Jane Perez on 04-28-2023 Neutrophils/100 WBC (Bld) 61.2 % . [facility] No Panel InformationOrdered By: Mary Jane Perez on 04-28-2023 Estimated GFR (CKD-EPI) > 60.0 mL/Min [facility] Creatinine Clearance (Chem N/A [facility] Nucleated erythrocytes [Pres ence] in Blood by Automated countOrdered By: Mary Jane Perez on 04-28-2023 Nucleated RBC Auto Ql (Bld) 0.1 /100{WBC} 0-0.5 [facility] Phosphate [Mass/volume] in S juan pablo or PlasmaOrdered By: Tanvir Ron on 04-28-2023 Phosphate [Mass/Vol] 3.4 mg/dL 3.7-7.2 [facility] Phosphoruson 04-28-2023 Phosphate [Mass/Vol] 3.4 mg/dL Low 3.7-7.2 [facility] Comment on above: Performed By: #### U RMACRERAT, [id number], PHOS #### [facility] [address] [place], [place] [id number] [facility] Platelet mean volume Auto (B ld) [Entitic vol]Ordered By: Mary Jane Perez on 04-28-2023 Platelet mean volume (Bld) [Entitic vol] 8.9 fL 6.3-10.7 [facility] Platelets Auto (Bld) [#/Vol] Ordered By: Mary Jane Perez on 04-28-2023 Platelets (Bld) [#/Vol] 230 10*3/uL 150-450 [facility] Potassium [Moles/volume] in Serum or PlasmaOrdered By: Mary Jane Perez on 04-28-2023 Potassium [Moles/Vol] 4.0 mmol/L 3.5-5.1 [facility] Protein [Mass/volume] in Ser um or PlasmaOrdered By: Mary Jane Perez on 04-28-2023 Protein [Mass/Vol] 5.9 g/dL 6.4-8.9 [facility] RBC Auto (Bld) [#/Vol]Ordere d By: Mary Jane Perez on 04-28-2023 RBC (Bld) [#/Vol] 4.54 10*6/uL 3.60-5.00 [facility] Serum or plasma albumin/glob ulin mass ratioOrdered By: Mary Jane Perez on 04-28-2023 Albumin/Globulin [Mass ratio] 2.0 {ratio} [facility] Serum or plasma anion gap de terminationOrdered By: Mary Jane Perez on 04-28-2023 Anion gap [Moles/Vol] 9.4 mmol/L 6.0-15.0 [facility] Serum or plasma high density lipoprotein (HDL) cholesterol measurementOrdered By: aMry Jane Perez on 04-28-2023 Cholesterol in HDL [Mass/Vol] 43 mg/dL 35-85 [facility] Comment on above: HDL CHOL ATP-III CLA SSIFICATION Cardiovascular RiskHDL > or equal to 60 mg/dL LOWHDL < 40 mg/dL HIGH Serum or plasma total choles terol/high density lipoprotein (HDL) cholesterol mass ratOrdered By: Mary Jane Perez on 04-28-2023 Cholesterol.total/Lakesha sterol in HDL [Mass ratio] 3.5 {ratio} <5.0 [facility] Sodium [Moles/volume] in Ser um or PlasmaOrdered By: Mary Jane Perez on 04-28-2023 Sodium [Moles/Vol] 140 mmol/L 136-145 [facility] Triglyceride [Mass/volume] i n Serum or PlasmaOrdered By: Mary Jane Perez on 04-28-2023 Triglyceride [Mass/Vol] 83 mg/dL 0-149 [facility] Comment on above: TRIG ATP III CLASSIF ICATIONTRIG less than 150 mg/dL NormalTRIG 150-199 mg/dL Borderline highTRIG 200-500 mg/dL High TRIG greater than 500 mg/dL Very highStandard traceable to the Center for Disease Conrtrol and Prevention (CDC) test method. Urea nitrogen [Mass/volume] in Serum or PlasmaOrdered By: Mary Jane Perez on 04-28-2023 Urea nitrogen [Mass/Vol] 28 mg/dL 7-25 [facility] Urine microalbumin/creatinin e mass ratioOrdered By: Tanvir Ron on 04-28-2023 Albumin/Creatinine DL <= 20 mg/L (U) [Mass ratio] 20.0 mg/g 0.0-30.0 [facility] Comment on above: 30-300 mg/g indicate s an increased risk for diabetic nephropathy. Greater than 300 mg/g is consistent with clinical nephropathy. (Am. J. Kidney Disease 1995, 25:107) Vitamin D 25 Hydroxy Totalon 04-28-2023 Vitamin D 25 Hydroxy Total 41.2 ng/mL Normal 30-100 [facility] Comment on above: Result Comment: DANIELLE MIN D STATUS 25(OH)VITAMIN D RANGE (ng/mL) Deficient <20 Insufficient 20 to <30 Sufficient 30 to 100 Reference: Bisi MF,Mindi NC, Esha-Berlin PUENTE, et al. Evaluation,treatment, and prevention of vitamin D deficiency; an Endocrine Society clinical practice guideline. JCEM. 2010; 96(7):1911-30. PERFORMED BY: [facility] [address] [place] [address] PATHOLOGIST INTERNAL AUDITOR GRIS CANELA M.D. Performed By: #### U RMACRERAT, [id number], PHOS #### [facility] [address] [place] [id number] [facility] Vitamin D+Metabolites [Mass/ volume] in Serum or PlasmaOrdered By: Tanvir Ron on 04-28-2023 Vitamin D+Metabolites [Mass/Vol] 41.2 ng/mL 30-100 [facility] Comment on above: VITAMIN D STATUS 25( [place])VITAMIN D RANGE (ng/mL) Deficient <20 Insufficient 20 to <30Sufficient 30 to 100Reference: Bisi MF,Mindi GEE, Anders PUENTE, et al. Evaluation,treatment, and prevention of vitamin D deficiency; an Endocrine Society clinical practice guideline. JCEM. 2010; 96(7):1911-30. WBC Auto (Bld) [#/Vol]Ordere d By: Mary Jane Perez on 04-28-2023 WBC (Bld) [#/Vol] 6.9 10*3/uL 3.8-11.6 [facility] Glucose Glucometer (BldC) [M ass/Vol]Ordered By: Marko Flores on 12-14-2022 Glucose [Mass/Vol] 131 mg/dL [facility] Comment on above: Random Glucose Refer ence Range is dependent on time and content of last meal. Glucose of more than 200 mg/dL in a nonstressed, ambulatory subject supports the diagnosis of Diabetes Mellitus. Glucose Poct Glucometerson 0 12-14-2022 Commemt1 Glu2: Cleaned Meter Normal [facility] Comment on above: Result Comment: PERF ORMED BY: [facility] [address] [id number] PATHOLOGIST INTERNAL AUDITOR GRIS CANELA M.D. Performed By: #### G LULS #### Point of Care testing , Glucose [Mass/Vol] 131 mg/dL Normal [facility] Comment on above: Result Comment: [place] Glucose Reference Range is dependent on time and content of last meal. Glucose of more than 200 mg/dL in a nonstressed, ambulatory subject supports the diagnosis of Diabetes Mellitus. Performed By: #### G LULS #### Point of Care testing , No Panel InformationOrdered By: Marko Flores on 12-14-2022 Bedside Glucose Comment Glu2: cleaned meter [facility] CT ABD/PELVIS WO CONon 12-24 CT ABD/PELVIS [...] by: MARS CASTILLO Date: 2021-12-24 08:32 Normal [facility] XR wrist LT 2Von 10-29-2021 XR wrist LT 2V [facility] [employer] Other XR wrist LT 2V [facility] [employer] Other XR wrist LT 2V [address] [place] [address] [employer] Other XR wrist LT 2V [place] [id number] No rt [employer] Other XR wrist LT 2V XRay Report [employer] Other XR wrist LT 2V Signed [employer] Other XR wrist LT 2V Patient: Daya Ramsay MR#: [id number] [facility] [employer] Other [facility] 4 [facility]V : 1950 Acct:[id number] [employer] Other XR wrist LT 2V Age/Sex: 71 / F ADM Date: 10/29/21 [employer] Other XR wrist LT 2V Loc: [facility] [employer] Other XR wrist LT 2V Attending Dr: Toña Slaughter MD [employer] Other XR wrist LT 2V Ordering Provider: Toña Slaughter MD [employer] Other XR wrist LT 2V Date of Service: 10/29/21 [employer] Other XR wrist LT 2V XR/XR wrist LT 2V: Left wrist pain [employer] Other XR wrist LT 2V ([id number]) XR/XR hand LT min 3V*: Left hand pain [employer] Other XR wrist LT 2V Copies to: Toña Slaughter MD [employer] Other XR wrist LT 2V 4 viewsLEFT hand plain film [employer] Other XR wrist LT 2V COMPARISON:None [employer] Other XR wrist LT 2V HISTORY:LEFT hand and wrist pain since fall 2 weeks ago. [employer] Other XR wrist LT 2V No fracture, dislocation or focal soft tissue abnormality seen. Mild degeneration identified. [employer] Other XR wrist LT 2V XR/XR hand LT min 3V* [employer] Other XR wrist LT 2V IMPRESSION:No acute findings [employer] Other XR wrist LT 2V 2 views of the LEFT wrist [employer] Other XR wrist LT 2V No fracture or dislocation identified. Mild to moderate wrist degeneration present. Impingement [employer] Other XR wrist LT 2V changes of the lunate and ulna noted. No focal soft tissue abnormality. [employer] Other XR wrist LT 2V IMPRESSION: No acute bony findings. [employer] Other XR wrist LT 2V Impression dictated by: Braulio Chavez M.D.10/29/2021 1:15 PM [employer] Other XR wrist LT 2V Dictation Location: [place] [address] [employer] Other XR wrist LT 2V Transcribed By: PWS 10/29/21 [facility] [employer] Other XR wrist LT 2V Dictated By: Braulio Chavez DO 10/29/21 [facility] [employer] Other XR wrist LT 2V Signed By: [employer] Other XR wrist LT 2V 10/29/21 131 [employer] Other ACETONE SERUMon 09-13-2021 ACETONE Negative Normal NEGATIVE [facility] Comment on above: Performed By: #### A CETON #### [facility] [address] [place] [address] Dr. Kemi Dumont CBC AUTO DIFFon 09-13-2021 BASO # 0.0 103/ul Normal 0.0-0.1 [facility] Comment on above: Performed By: #### C BC #### [facility] [address] [address] [address] Kemi Dumont Basophils/100 WBC (Bld) 0.8 % Normal 0.2-2.0 [facility] Comment on above: Performed By: #### C BC #### [facility] [address] [address] [address] Kemi Dumont EO # 0.2 103/ul Normal 0.0-0.7 [facility] Comment on above: Performed By: #### C BC #### [facility] [address] [place] [address] Dr. Kemi Dumont Eosinophils/100 WBC (Bld) 4.1 % Normal 0.9-7.0 [facility] Comment on above: Performed By: #### C BC #### [facility] [address] [place] [address] Dr. Kemi Dumont Erythrocyte distribution width (RBC) [Ratio] 13.2 % Normal 11.0-15.0 [facility] Comment on above: Performed By: #### C BC #### [facility] [address] [place] [address] Dr. Kemi Dumont Hematocrit (Bld) [Volume fraction] 40.3 % Normal 36.0-48.0 [facility] Comment on above: Performed By: #### C BC #### [facility] [address] [place] [address] Dr. Kemi Dumont Hemoglobin (Bld) [Mass/Vol] 13.6 g/dL Normal 12.0-16.0 [facility] Comment on above: Performed By: #### C BC #### [facility] [address] [place] [address] Dr. Kemi Dumont IG # 0.04 10e3/ul Critically high 0.00-0.03 [facility] Comment on above: Performed By: #### C BC #### [facility] [address] [place] [address] Dr. eKmi Dumont IG % 0.8 % Critically high 0.0-0.5 [facility] Comment on above: Performed By: #### C BC #### [facility] [address] [place] [address] Dr. Kemi Dumont LYMPH # 1.7 103/ul Normal 1.2-3.8 [facility] Comment on above: Performed By: #### C BC #### [facility] [address] [place] [address] Dr. Kemi Dumont Lymphocytes/100 WBC (Bld) 32.3 % Normal 20.5-60.0 [facility] Comment on above: Performed By: #### C BC #### [facility] [address] [place] [address] Dr. Kemi Dumont MANUAL DIFF REQ NO Normal [facility] Comment on above: Performed By: #### C BC #### [facility] [address] [place] [address] Dr. Kemi Dumont MCH (RBC) [Entitic mass] 30.1 pg Normal 26.7-34.0 [facility] Comment on above: Performed By: #### C BC #### [facility] [address] [place] [address] Dr. Kemi Dumont MCHC (RBC) [Mass/Vol] 33.7 g/dL Normal 29.9-35.2 [facility] Comment on above: Performed By: #### C BC #### [facility] [address] [place] [address] Dr. Kemi Dumont MCV (RBC) [Entitic vol] 89.2 fL Normal 81.0-99.0 [facility] Comment on above: Performed By: #### C BC #### [facility] [address] [place] [address] Dr. Kemi Dumont MONO # 0.5 103/ul Normal 0.3-0.8 [facility] Comment on above: Performed By: #### C BC #### [facility] [address] [place] [address] Dr. Kemi Dumont Monocytes/100 WBC (Bld) 9.6 % Normal 1.7-12.0 [facility] Comment on above: Performed By: #### C BC #### [facility] [address] [place] [address] Dr. Kemi Dumont NEUT # 2.8 103/ul Normal 1.4-6.5 [facility] Comment on above: Performed By: #### C BC #### [facility] [address] [place] [address] Dr. Kemi Dumont Neutrophils/100 WBC (Bld) 52.4 % Normal 43.0-75.0 [facility] Comment on above: Performed By: #### C BC #### [facility] [address] [place] [address] Dr. Kemi Dumont Platelet mean volume (Bld) [Entitic vol] 10.3 fL Normal 9.5-13.5 [facility] Comment on above: Performed By: #### C BC #### [facility] [address] [place] [address] Dr. Kemi Dumont PLT 259 103/ul Normal 150-450 [facility] Comment on above: Performed By: #### C BC #### [facility] [address] [place] [address] Dr. Kemi Dumont RBC 4.52 106/ul Normal 4.20-5.40 [facility] Comment on above: Performed By: #### C BC #### [facility] [address] [place] [address] Dr. Kemi Dumont WBC 5.3 103/ul Normal 4.0-11.0 [facility] Comment on above: Performed By: #### C BC #### [facility] [address] [place] [address] Dr. Kemi Dumont ER URINE PROFILEon 1 Bilirubin Ql (U) Negative Normal NEGATIVE [facility] Comment on above: Performed By: #### E RUR #### [facility] [address] [place] [address] Dr. Kemi Dumont Clarity (U) CLEAR Normal CLEAR [facility] Comment on above: Performed By: #### E RUR #### [facility] [address] [place] [address] Dr. Kemi Dumont Color (U) LT. YELLOW Normal YELLOW [facility] Comment on above: Performed By: #### E RUR #### [facility] [address] [place] [address] Dr. Kemi GARLAND A micrscopic examination will be performed if indicated. Normal [facility] Comment on above: Performed By: #### E RUR #### [facility] [address] [place] [address] Dr. Kemi Dumont Glucose Ql (U) >1000 Abnormal NEGATIVE [facility] Comment on above: Performed By: #### E RUR #### [facility] [address] [address] [address] Kemi Dumont Hemoglobin Ql (U) Negative Normal NEGATIVE [facility] Comment on above: Performed By: #### E RUR #### [facility] [address] [place] [address] Dr. Kemi Dumont Ketones Ql (U) 15 mg/dl Abnormal NEGATIVE [facility] Comment on above: Performed By: #### E RUR #### [facility] [address] [place] [address] Dr. Kemi Dumont LEUKOCYTES Negative Normal NEGATIVE [facility] Comment on above: Performed By: #### E RUR #### [facility] [address] [place] [address] Dr. Kemi Dumont Nitrite Ql (U) Negative Normal NEGATIVE [facility] Comment on above: Performed By: #### E RUR #### [facility] [address] [place] [address] Dr. Kemi Dumont pH (U) 6.0 [pH] Normal 5-9 [facility] Comment on above: Performed By: #### E RUR #### [facility] [address] [place] [address] Dr. Kemi Dumont SPEC GRAVITY 1.010 Normal 1.005-<=1.02 5 [facility] Comment on above: Performed By: #### E RUR #### [facility] [address] [place] [address] Dr. Kemi Dumont UA PROTEIN Negative Normal NEGATIVE/ TRACE [facility] Comment on above: Performed By: #### E RUR #### [facility] [address] [place] [address] Dr. Kemi Dumont UR MICRO IND NOT INDICATED Normal [facility] Comment on above: Performed By: #### E RUR #### [facility] [address] [place] [address] Dr. Kemi Dumont Urobilinogen Qn (U) 0.2 {Adalgisa'U}/dL Normal 0.2 - 1. 0 [facility] Comment on above: Performed By: #### E RUR #### [facility] [address] [place] [address] Dr. Kemi Dumont POINT OF CARE GLUCOSEon 08-29 Glucose [Mass/Vol] 380 mg/dL Critically high 74-106 [facility] Comment on above: Performed By: #### A 1C #### [facility] [address] [place] [address] Dr. Kemi Dumont Glucose [Mass/Vol] 494 mg/dL Critically high 74-106 [facility] Comment on above: Performed By: #### P OCGLUC #### [facility] [address] [place] [address] Dr. Kemi Dumont PROF 14(COMP METB)on 021 Albumin [Mass/Vol] 3.4 g/dL Critically low 3.5-5.0 [facility] Comment on above: Performed By: #### C MP #### [facility] [address] [place] [address] Dr. Kemi Dumont Albumin/Globulin [Mass ratio] 1.1 {ratio} Normal [facility] Comment on above: Performed By: #### C MP #### [facility] [address] [place] [address] Dr. Kemi Dumont ALP [Catalytic activity/Vol] 112 U/L Normal 38-126 [facility] Comment on above: Performed By: #### C MP #### [facility] [address] [place] [address] Dr. Kemi Dumont ALT [Catalytic activity/Vol] 43 U/L Normal 9-52 [facility] Comment on above: Performed By: #### C MP #### [facility] [address] [place] [address] Dr. Kemi Dumont Anion gap [Moles/Vol] 10.1 mmol/L Normal [facility] Comment on above: Performed By: #### C MP #### [facility] [address] [place] [address] Dr. Kemi Dumont AST [Catalytic activity/Vol] 13 U/L Critically low 14-36 [facility] Comment on above: Performed By: #### C MP #### [facility] [address] [place] [address] Dr. Kemi Dumont Bilirubin [Mass/Vol] 0.5 mg/dL Normal 0.2-1.3 [facility] Comment on above: Performed By: #### C MP #### [facility] [address] [address] [address] Kemi Dumont Calcium [Mass/Vol] 9.2 mg/dL Normal 8.4-10.2 [facility] Comment on above: Performed By: #### C MP #### [facility] [address] [place] [address] Dr. Kemi Dumont Chloride [Moles/Vol] 102 mmol/L Normal 98-107 [facility] Comment on above: Performed By: #### C MP #### [facility] [address] [place] [address] Dr. Kemi Dumont CO2 [Moles/Vol] 27.4 mmol/L Normal 22.0-30.0 [facility] Comment on above: Performed By: #### C MP #### [facility] [address] [place] [address] Dr. Kemi Dumont Creatinine [Mass/Vol] 1.08 mg/dL Critically high 0.52-1.04 [facility] Comment on above: Performed By: #### C MP #### [facility] [address] [place] [address] Dr. Kemi Dumont EGFR-AF [place] >60 Normal >=60 [facility] Comment on above: Performed By: #### C MP #### [facility] [address] [place] [address] Dr. Kemi Dumont EGFR-NON AF [place] 50 mL/min/1.73m2 Critically low >=60 [facility] Comment on above: Performed By: #### C MP #### [facility] [address] [place] [address] Dr. Kemi Dumont Globulin (S) [Mass/Vol] 3.1 g/dL Normal T [facility] Comment on above: Performed By: #### C MP #### [facility] [address] [address] [address] Kemi Dumont Glucose [Mass/Vol] 440 mg/dL Critically high 74-106 [facility] Comment on above: Performed By: #### C MP #### [facility] [address] [address] [address] Kemi Dumont Potassium [Moles/Vol] 3.5 mmol/L Normal 3.4-5.0 [facility] Comment on above: Performed By: #### C MP #### [facility] [address] [address] [address] Kemi Dumont Protein [Mass/Vol] 6.5 g/dL Normal 6.1-8.2 [facility] Comment on above: Performed By: #### C MP #### [facility] [address] [address] [address] Kemi Dumont Sodium [Moles/Vol] 136 mmol/L Critically low 137-145 [facility] Comment on above: Performed By: #### C MP #### [facility] [address] [address] [address] Kemi Dumont Urea nitrogen [Mass/Vol] 24.0 mg/dL Critically high 7.0-17.0 [facility] Comment on above: Performed By: #### C MP #### [facility] [address] [address] [address] Kemi Dumont Urea nitrogen/Creatinine [Mass ratio] 22.2 mg/mg Normal [facility] Comment on above: Performed By: #### C MP #### [facility] [address] [address] [address] Kemi Dumont CBC AUTO DIFFon 09-08-2021 BASO # 0.0 103/ul Normal 0.0-0.1 [facility] Comment on above: Performed By: #### A 1C #### [facility] [address] [address] [address] Kemi Dumont Basophils/100 WBC (Bld) 0.6 % Normal 0.2-2.0 [facility] Comment on above: Performed By: #### A 1C #### [facility] [address] [place] [address] Dr. Kemi Dumont EO # 0.2 103/ul Normal 0.0-0.7 [facility] Comment on above: Performed By: #### A 1C #### [facility] [address] [place] [address] Dr. Kemi Dumont Eosinophils/100 WBC (Bld) 4.1 % Normal 0.9-7.0 [facility] Comment on above: Performed By: #### A 1C #### [facility] [address] [place] [address] Dr. Kemi Dumont Erythrocyte distribution width (RBC) [Ratio] 13.2 % Normal 11.0-15.0 [facility] Comment on above: Performed By: #### A 1C #### [facility] [address] [place] [address] Dr. Kemi Dumont Hematocrit (Bld) [Volume fraction] 41.9 % Normal 36.0-48.0 [facility] Comment on above: Performed By: #### A 1C #### [facility] [address] [place] [address] Dr. Kemi Dumont Hemoglobin (Bld) [Mass/Vol] 13.5 g/dL Normal 12.0-16.0 [facility] Comment on above: Performed By: #### A 1C #### [facility] [address] [place] [address] Dr. Kemi Dumont IG # 0.01 10e3/ul Normal 0.00-0.03 [facility] Comment on above: Performed By: #### A 1C #### [facility] [address] [place] [address] Dr. Kemi Dumont IG % 0.2 % Normal 0.0-0.5 [facility] Comment on above: Performed By: #### A 1C #### [facility] [address] [place] [address] Dr. Kemi Dumont LYMPH # 1.8 103/ul Normal 1.2-3.8 [facility] Comment on above: Performed By: #### A 1C #### [facility] [address] [place] [address] Dr. Kemi Dumont Lymphocytes/100 WBC (Bld) 33.8 % Normal 20.5-60.0 [facility] Comment on above: Performed By: #### A 1C #### [facility] [address] [place] [address] Dr. Kemi Dumont MANUAL DIFF REQ NO Normal [facility] Comment on above: Performed By: #### A 1C #### [facility] [address] [place] [address] Dr. Kemi Dumont MCH (RBC) [Entitic mass] 29.0 pg Normal 26.7-34.0 [facility] Comment on above: Performed By: #### A 1C #### [facility] [address] [place] [address] Dr. Kemi Dumont MCHC (RBC) [Mass/Vol] 32.2 g/dL Normal 29.9-35.2 [facility] Comment on above: Performed By: #### A 1C #### [facility] [address] [place] [address] Dr. Kemi Dumont MCV (RBC) [Entitic vol] 90.1 fL Normal 81.0-99.0 [facility] Comment on above: Performed By: #### A 1C #### [facility] [address] [place] [address] Dr. Kemi Dumont MONO # 0.5 103/ul Normal 0.3-0.8 [facility] Comment on above: Performed By: #### A 1C #### [facility] [address] [place] [address] Dr. Kemi Dumont Monocytes/100 WBC (Bld) 9.7 % Normal 1.7-12.0 [facility] Comment on above: Performed By: #### A 1C #### [facility] [address] [place] [address] Dr. Kemi Dumont NEUT # 2.7 103/ul Normal 1.4-6.5 [facility] Comment on above: Performed By: #### A 1C #### [facility] [address] [address] [address] Kemi Dumont Neutrophils/100 WBC (Bld) 51.6 % Normal 43.0-75.0 [facility] Comment on above: Performed By: #### A 1C #### [facility] [address] [address] [address] Kemi Dumont Platelet mean volume (Bld) [Entitic vol] 10.7 fL Normal 9.5-13.5 [facility] Comment on above: Performed By: #### A 1C #### [facility] [address] [address] [address] Kemi Dumont PLT 285 103/ul Normal 150-450 [facility] Comment on above: Performed By: #### A 1C #### [facility] [address] [place] [address] Dr. Kemi Dumont RBC 4.65 106/ul Normal 4.20-5.40 [facility] Comment on above: Performed By: #### A 1C #### [facility] [address] [place] [address] Dr. Kemi Dumont WBC 5.2 103/ul Normal 4.0-11.0 [facility] Comment on above: Performed By: #### A 1C #### [facility] [address] [place] [address] Dr. Kemi Dumont GLYCOHEMOGLOBIN A1Con 2020 ADA RECOMMENDATION ADA THERAPEUTIC TARGET 6.0 - 7.0 ACTION SUGGESTED > 7.0 Normal [facility] Comment on above: Performed By: #### A 1C #### [facility] [address] [place] [address] Dr. Kemi Dumont Glucose [Mass/Vol] 232 mg/dL Normal [facility] Comment on above: Performed By: #### A 1C #### [facility] [address] [place] [address] Dr. Kemi Dumont HbA1c (Bld) [Mass fraction] 9.7 % Critically high <=6.0 [facility] Comment on above: Performed By: #### A 1C #### [facility] [address] [address] [address] Kemi Dumont LIPID PROFILEon 09-08-2021 CHOL-HDL RATIO NORM SEE BELOW Normal [facility] Comment on above: Result Comment: 3.3 - 4.4 LOW RISK 4.4 - 7.1 AVERAGE RISK 7.1 - 11.0 MODERATE RISK >11.0 HIGH RISK Performed By: #### A 1C #### [facility] [address] [address] [address] Kemi Dumont Cholesterol [Mass/Vol] 182 mg/dL Normal <=200 [facility] Comment on above: Performed By: #### A 1C #### [facility] [address] [address] [address] Kemi Dumont Cholesterol in HDL [Mass/Vol] 43 mg/dL Normal [facility] Comment on above: Performed By: #### A 1C #### [facility] [address] [address] [address] Kemi Dumont Cholesterol in LDL [Mass/Vol] 112.4 mg/dL Normal [facility] Comment on above: Performed By: #### A 1C #### [facility] [address] [address] [address] Kemi Dumont Cholesterol.total/Lakesha sterol in HDL [Mass ratio] 4.2 {ratio} Normal [facility] Comment on above: Performed By: #### A 1C #### [facility] [address] [address] [address] Kemi Dumont HDL NORMAL > or = 60 mg/dl - LOW CARDIOVASCULAR RISK <40 mg/dl - HIGH CARDIOVASCULAR RISK Normal [facility] Comment on above: Performed By: #### A 1C #### [facility] [address] [address] [address] Kemi Dumont LDL CALC NORMAL SEE BELOW Normal [facility] Comment on above: Result Comment: <100 mg/dl OPTIMAL 100 - 129 mg/dl NEAR OR ABOVE OPTIMAL 130 - 159 mg/dl BORDERLINE HIGH 160 - 189 mg/dl HIGH >190 mg/dl VERY HIGH Performed By: #### A 1C #### [facility] [address] [address] [address] Kemi Dumont Triglyceride [Mass/Vol] 133 mg/dL Normal <=150 [facility] Comment on above: Performed By: #### A 1C #### [facility] [address] [place] [address] Dr. Kemi Dumont VLDL CALC 26.6 mg/dL Normal [facility] Comment on above: Performed By: #### A 1C #### [facility] [address] [place] [address] Dr. Kemi Dumont PROF CHEM 8 (BAS METB)on Anion gap [Moles/Vol] 10.7 mmol/L Normal [facility] Comment on above: Performed By: #### A 1C #### [facility] [address] [place] [address] Dr. Kemi Dumont Calcium [Mass/Vol] 9.3 mg/dL Normal 8.4-10.2 [facility] Comment on above: Performed By: #### A 1C #### [facility] [address] [place] [address] Dr. Kemi Dumont Chloride [Moles/Vol] 103 mmol/L Normal 98-107 [facility] Comment on above: Performed By: #### A 1C #### [facility] [address] [place] [address] Dr. Kemi Dumont CO2 [Moles/Vol] 29.3 mmol/L Normal 22.0-30.0 [facility] Comment on above: Performed By: #### A 1C #### [facility] [address] [place] [address] Dr. Kemi Dumont Creatinine [Mass/Vol] 0.90 mg/dL Normal 0.52-1.04 [facility] Comment on above: Performed By: #### A 1C #### [facility] [address] [place] [address] Dr. Kemi Dumont EGFR-AF EAST [place] >60 Normal >=60 [facility] Comment on above: Performed By: #### A 1C #### [facility] [address] [place] [address] Dr. Kemi Dumont EGFR-NON AF [place] >60 Normal >=60 [facility] Comment on above: Performed By: #### A 1C #### [facility] [address] [address] [address] Kemi Dumont Glucose [Mass/Vol] 416 mg/dL Critically high 74-106 [facility] Comment on above: Performed By: #### A 1C #### [facility] [address] [address] [address] Kemi Dumont Potassium [Moles/Vol] 4.0 mmol/L Normal 3.4-5.0 [facility] Comment on above: Performed By: #### A 1C #### [facility] [address] [address] [address] Kemi Dumont Sodium [Moles/Vol] 139 mmol/L Normal 137-145 [facility] Comment on above: Performed By: #### A 1C #### [facility] [address] [address] [address] Kemi Dumont Urea nitrogen [Mass/Vol] 19.0 mg/dL Critically high 7.0-17.0 [facility] Comment on above: Performed By: #### A 1C #### [facility] [address] [address] [address] Kemi Dumont Urea nitrogen/Creatinine [Mass ratio] 21.1 mg/mg Normal [facility] Comment on above: Performed By: #### A 1C #### [facility] [address] [address] [address] Kemi Dumont TSHon 09-08-2021 TSH 0.918 uIU/mL Normal 0.470-4.680 [facility] Comment on above: Performed By: #### A 1C #### [facility] [address] [address] [address] Kemi Dumont TSH RANGE SEE BELOW Normal [facility] Comment on above: Result Comment: <0.3 4 UIU/ml HYPERTHYROID 0.34-5.60 UIU/ml EUTHYROID >5.60 UIU/ml HYPOTHYROID Performed By: #### A 1C #### [facility] [address] [place] [address] Dr. Kemi Dumont XR CHEST 1 Von [...] MITCHEL BEE Date: 2021-08-13 14:29 Normal [facility] SYMPTOMATIC COVID-19 ANTIGEN on 08-11-2021 EUA Statement SEE BELOW Normal [facility] Comment on above: Result Comment: This [...] sooner. Performed By: #### A 1C #### [facility] [address] [address] [address] Kemi Dumont SARS-CoV-2 (COVID-19) RNA TERESE+probe Ql (Unsp spec) Positive Critically abnormal NEGATIVE [facility] Comment on above: Performed By: #### A 1C #### [facility] [address] [address] [address] Kemi Dumont PROF CHEM 8 (BAS METB)on Anion gap [Moles/Vol] 14.1 mmol/L Normal [facility] Comment on above: Performed By: #### B MP #### [facility] [address] [place] [address] Glenny Chanell Calcium [Mass/Vol] 9.0 mg/dL Normal 8.4-10.2 [facility] Comment on above: Performed By: #### B MP #### [facility] [address] [place] [address] Glenny Chanell Chloride [Moles/Vol] 106 mmol/L Normal 98-107 [facility] Comment on above: Performed By: #### B MP #### [facility] [address] [place] [address] Glenny Chanell CO2 [Moles/Vol] 29.0 mmol/L Normal 22.0-30.0 [facility] Comment on above: Performed By: #### B MP #### [facility] [address] [place] [address] Glenny Chanell Creatinine [Mass/Vol] 0.80 mg/dL Normal 0.52-1.04 [facility] Comment on above: Performed By: #### B MP #### [facility] [address] [place] [address] Glenny Chanell EGFR-AF [place] >60 Normal >=60 [facility] Comment on above: Performed By: #### B MP #### [facility] [address] [place] [address] Glenny Chanell EGFR-NON AF [place] >60 Normal >=60 [facility] Comment on above: Performed By: #### B MP #### [facility] [address] [place] [address] Glenny Chanell Glucose [Mass/Vol] 138 mg/dL Critically high 74-106 [facility] Comment on above: Performed By: #### B MP #### [facility] [address] [place] [address] Glenny Chanell Potassium [Moles/Vol] 4.1 mmol/L Normal 3.4-5.0 [facility] Comment on above: Performed By: #### B MP #### [facility] [address], [place] [address] Glenny Chanell Sodium [Moles/Vol] 145 mmol/L Normal 137-145 [facility] Comment on above: Performed By: #### B MP #### [facility] [address], [place] [address] Glenny Chanell Urea nitrogen [Mass/Vol] 17.0 mg/dL Normal 7.0-17.0 [facility] Comment on above: Performed By: #### B MP #### [facility] [address] [place], [place] [address] Glenny Chanell Urea nitrogen/Creatinine [Mass ratio] 21.2 mg/mg Normal [facility] Comment on above: Performed By: #### B MP #### [facility] [address] [place], [place] [address] Glenny Chanell CBC AUTO DIFFon 05-08-2021 BASO # 0.0 103/ul Normal 0.0-0.1 [facility] Comment on above: Performed By: #### C BC #### [facility] [address] [place], [place] [address] Glenny Chanell Basophils/100 WBC (Bld) 0.4 % Normal 0.2-2.0 [facility] Comment on above: Performed By: #### C BC #### [facility] [address] [place], [place] [address] Glenny Chanell EO # 0.2 103/ul Normal 0.0-0.7 [facility] Comment on above: Performed By: #### C BC #### [facility] [address] [place], [place] [address] Glenny Chanell Eosinophils/100 WBC (Bld) 2.6 % Normal 0.9-7.0 [facility] Comment on above: Performed By: #### C BC #### [facility] [address] [place], [place] [address] Glenny Chanell Erythrocyte distribution width (RBC) [Ratio] 13.2 % Normal 11.0-15.0 [facility] Comment on above: Performed By: #### C BC #### [facility] [address] [place], [place] [address] Glenny Chanell Hematocrit (Bld) [Volume fraction] 39.1 % Normal 36.0-48.0 [facility] Comment on above: Performed By: #### C BC #### [facility] [address] [place] [address] Glenny Chanell Hemoglobin (Bld) [Mass/Vol] 13.2 g/dL Normal 12.0-16.0 [facility] Comment on above: Performed By: #### C BC #### [facility] [address] [place] [address] Glenny Chanell IG # 0.01 10e3/ul Normal 0.00-0.03 [facility] Comment on above: Performed By: #### C BC #### [facility] [address] [place] [address] Glenny Chanell IG % 0.1 % Normal 0.0-0.5 [facility] Comment on above: Performed By: #### C BC #### [facility] [address] [place] [address] Glenny Chanell LYMPH # 1.6 103/ul Normal 1.2-3.8 [facility] Comment on above: Performed By: #### C BC #### [facility] [address] [place] [address] Glenny Chanell Lymphocytes/100 WBC (Bld) 22.3 % Normal 20.5-60.0 [facility] Comment on above: Performed By: #### C BC #### [facility] [address] [place] [address] Glenny Chanell MANUAL DIFF REQ NO Normal [facility] Comment on above: Performed By: #### C BC #### [facility] [address] [place], [place] [address] Glenny Chanell MCH (RBC) [Entitic mass] 29.9 pg Normal 26.7-34.0 [facility] Comment on above: Performed By: #### C BC #### [facility] [address] [place] [address] Glenny Chanell MCHC (RBC) [Mass/Vol] 33.8 g/dL Normal 29.9-35.2 [facility] Comment on above: Performed By: #### C BC #### [facility] [address] [place], [place] [address] Glenny Lua MCV (RBC) [Entitic vol] 88.5 fL Normal 81.0-99.0 [facility] Comment on above: Performed By: #### C BC #### [facility] [address] [place], [place] [address] Glenny Lua MONO # 0.5 103/ul Normal 0.3-0.8 [facility] Comment on above: Performed By: #### C BC #### [facility] [address] [place] [address] Glenny Lua Monocytes/100 WBC (Bld) 6.6 % Normal 1.7-12.0 [facility] Comment on above: Performed By: #### C BC #### [facility] [address] [place] [address] Glenny Carcamoen NEUT # 4.8 103/ul Normal 1.4-6.5 [facility] Comment on above: Performed By: #### C BC #### [facility] [address] [place], [place] [address] Glenny Lua Neutrophils/100 WBC (Bld) 68.0 % Normal 43.0-75.0 [facility] Comment on above: Performed By: #### C BC #### [facility] [address] [place], [place] [address] Glenny Lua Platelet mean volume (Bld) [Entitic vol] 10.0 fL Normal 9.5-13.5 [facility] Comment on above: Performed By: #### C BC #### [facility] [address] [place], [place] [address] Glenny Chanell PLT 233 103/ul Normal 150-450 [facility] Comment on above: Performed By: #### C BC #### [facility] [address] [place] [address] Glenny Chanell RBC 4.42 106/ul Normal 4.20-5.40 [facility] Comment on above: Performed By: #### C BC #### [facility] [address] [id number] Glenny Chanell WBC 7.0 103/ul Normal 4.0-11.0 [facility] Comment on above: Performed By: #### C BC #### [facility] [address] [id number] Glenny Chanell PROF CHEM 8 (BAS METB)on Anion gap [Moles/Vol] 11.8 mmol/L Normal [facility] Comment on above: Performed By: #### T SH, BMP #### [facility] [address] [place] [address] Glenny Chanell Calcium [Mass/Vol] 8.9 mg/dL Normal 8.4-10.2 [facility] Comment on above: Performed By: #### T SH, BMP #### [facility] [address] [place] [address] Glenny Chanell Chloride [Moles/Vol] 107 mmol/L Normal 98-107 [facility] Comment on above: Performed By: #### T SH, BMP #### [facility] [address] [place], [place] [address] Glenny Chanell CO2 [Moles/Vol] 28.3 mmol/L Normal 22.0-30.0 [facility] Comment on above: Performed By: #### T SH, BMP #### [facility] [address] [place] [address] Glenny Chanell Creatinine [Mass/Vol] 0.81 mg/dL Normal 0.52-1.04 [facility] Comment on above: Performed By: #### T SH, BMP #### [facility] [address] [place], [place] [address] Glenny Chanell EGFR-AF [place] >60 Normal >=60 [facility] Comment on above: Performed By: #### T SH, BMP #### [facility] [address] [place] [address] Glenny Chanell EGFR-NON AF [place] >60 Normal >=60 [facility] Comment on above: Performed By: #### T SH, BMP #### [facility] [address], [place] [address] Glenny Chanell Glucose [Mass/Vol] 143 mg/dL Critically high 74-106 [facility] Comment on above: Performed By: #### T SH, BMP #### [facility] [address], [place] [address] Glenny Chanell Potassium [Moles/Vol] 4.1 mmol/L Normal 3.4-5.0 [facility] Comment on above: Performed By: #### T SH, BMP #### [facility] [address] [place], [place] [address] Glenny Chanell Sodium [Moles/Vol] 143 mmol/L Normal 137-145 [facility] Comment on above: Performed By: #### T SH, BMP #### [facility] [address] [place], [place] [address] Glenny Chanell Urea nitrogen [Mass/Vol] 19.0 mg/dL Critically high 7.0-17.0 [facility] Comment on above: Performed By: #### T SH, BMP #### [facility] [address] [place], [place] [address] Glenny Chanell Urea nitrogen/Creatinine [Mass ratio] 23.5 mg/mg Normal [facility] Comment on above: Performed By: #### T SH, BMP #### [facility] [address] [place], [place] [address] Glenny Chanell TSHon 05-08-2021 TSH 0.487 uIU/mL Normal 0.470-4.680 [facility] Comment on above: Performed By: #### T SH, BMP #### [facility] [address] [place], [place] [address] Glenny Chanell TSH RANGE SEE BELOW Normal [facility] Comment on above: Result Comment: <0.3 4 UIU/ml HYPERTHYROID 0.34-5.60 UIU/ml EUTHYROID >5.60 UIU/ml HYPOTHYROID Performed By: #### T SH, BMP #### [facility] [address] [place], [place] [address] Glenny Chanell Vital Signs Date Time Vital Sign Value Performing Clinician Facility 12-14-2022 10:01-0500 Diastolic blood pressure 51 mm[Hg] MD Connie Taylor Work Phone: [facility] 12-14-2022 10:01-0500 Heart rate 55 /min MD Connie Taylor Work Phone: [facility] 12-14-2022 10:01-0500 Respiratory rate 16 /min MD Connie Taylor Work Phone: [facility] 12-14-2022 10:01-0500 SaO2% (BldA) [Mass fraction] 97 % MD Connie Taylor Work Phone: [facility] 12-14-2022 10:01-0500 Systolic blood pressure 98 mm[Hg] MD Connie Taylor Work Phone: [facility] 12-14-2022 08:29-0500 Body height 170.18 cm MD Connie Taylor Work Phone: [facility] 12-14-2022 08:29-0500 Body temperature 98.4 [degF] MD Connie aTylor Work Phone: [facility] 12-14-2022 08:29-0500 Body weight 81.64 kg MD Connie Taylor Work Phone: [facility] 10-29-2021 10:00-0500 Body height 168.91 cm Toña Slaughter Other [facility] Other 10-29-2021 10:00-0500 Body mass index (BMI) [Ratio] 30.68 kg/m2 Toña Slaughter Other [employer] Other 10-29-2021 10:00-0500 Body weight 87.54 kg Toña Slaughter Other [employer] Other Encounters Encounter Date Encounter Type Care Provider Facility Start: 10-02-2024 ambulatory Livier Ludwig [facility] Facility: [facility] Start: 04-10-2024 End: 04-11-2024 ambulatory Livier L Akira [place] [place]: 01-10-2024 End: 01-10-2024 ambulatory [facility] Start: 11-05-2023 End: 11-06-2023 ambulatory Livier L Akira [place] [place] Start: 10-14-2023 End: 10-15-2023 ambulatory Livier L Akira Facility:[facility] Shannan humberto Start: 10-13-2023 End: 10-14-2023 ambulatory Livier L Akira [place] [place] Start: 10-11-2023 End: 10-12-2023 ambulatory Livier L Akira [place] [place] Start: 10-08-2023 ambulatory Livier Akira Facility:[facility] Start: 04-28-2023 End: 04-28-2023 ambulatory Connie Taylor Facility:[facility] Start: 04-28-2023 End: 04-28-2023 ambulatory MD Connie Taylor Work Phone: [facility] Work Phone: Start: 04-28-2023 End: 04-28-2023 Patient encounter procedure MD Connie Taylor Work Phone: [facility] [place] Work Phone: Start: 12-14-2022 End: 12-14-2022 ambulatory Marko Flores Facility:[facility] Start: 12-14-2022 End: 12-14-2022 Admission to same day surgery center MD Connie Taylor Work Phone: [facility] Work Phone: Start: 12-14-2022 End: 12-14-2022 ambulatory MD Connie Taylor Work Phone: [facility] Work Phone: Start: 09-16-2022 End: 09-16-2022 ambulatory Marko Flores Other [employer] Other Start: 09-16-2022 Telephone encounter Markov[facility] Start: 12-24-2021 End: 12-25-[address] CONNIE TAYLOR Facility:[facility] Start: 12-09-2021 End: 01-05-[address] CONNIE TAYLOR Facility:[facility] Start: 12-03-2021 End: 12-03-2021 ambulatory Toña Calvey Other [employer] Other Start: 12-03-2021 Office outpatient visit 15 minutes Toña Calvey [facility] Start: 10-29-2021 End: 10-29-2021 ambulatory Toña Calvey Other [employer] Other Start: 10-29-2021 Office outpatient visit 15 minutes Toña Calvey [facility] Start: 09-13-2021 End: 09-13-[address] [...] Performing Clinician Start: 12-14-2022 Colonoscopy MD Connie Tilley ayana Work Phone: Plan of Treatment Date Care Activity Detail Author Start: 12-14-2022 [facility] Immunizations Immunization Date Immunization Notes Care Provider Fa ciliteri 02-08-2019 zoster vaccine recombinant Toña Calvey Other [employer] Other 11-02-2018 zoster vaccine recombinant Toña Calvey Other [employer] Other 10-25-2018 influenza, high dose seasonal, preservative-free Toña Slaughter Other [employer] Other 10-25-2018 pneumococcal polysaccharide vaccine, 23 valent Toña Slaughter Other [employer] Other 11-08-2017 pneumococcal conjuga te vaccine, 13 valent Toñarosa Slaughter Other [employer] Other 10-11-2017 influenza, high dose seasonal, preservative-free Toña Slaughter Other [employer] Other Payers Date Payer Category Payer Medicare [id number] 1957 Self-pay 1957 Unknown [id number] 1950 Unknown [id number] 2.16.84 0.1.180634.3.579.2.593 1950 Unknown [id number] 2.16.84 0.1.804600.3.579.2.593 1952 Unknown [id number] 2.16.84 0.1.924447.3.579.2.593 1952 Unknown [id number] 2.16.84 0.1.511034.3.579.2.593 1952 Unknown [id number] 2.16.84 0.1.467741.3.579.2.593 1952 Unknown [id number] 2.16.84 0.1.750162.3.579.2.593 1952 Unknown [id number] 2.16.84 0.1.228209.3.579.2.593 1952 Unknown [id number] 2.16.84 0.1.882827.3.579.2.593 1952 Unknown [id number] 2.16.840.1.099314.3.579.2.727 1952 Unknown [id number] 2.16.840.1.502622.3.579.2.727 1952 Unknown [id number] 2.16.840.1.260134.3.579.2.72 1952 Unknown [id number] 2.16.840.1.014513.3.579.2.72 1952 Unknown [id number] 2.16.840.1.966514.3.579.2.727 1952 Unknown [id number] 2.16.840.1.073785.3.579.2.72 1952 Unknown [id number] 2.16.840.1.744357.3.579.2.72 1952 Unknown [id number] 2.16.840.1.432475.3.579.2.727 1952 Unknown [id number] 2.16.840.1.086830.3.579.2.727 1952 Unknown [id number] 2.16.840.1.649218.3.579.2.727 Medicare Medicare-OP No Part B [id number] Unknown [id number] 2.16.84 0.1.907117.3.579.2.593 Unknown [place] BC/BS [id number] Unknown [place] BC/BS [id number] Unknown [id number] 2.16.840.1.442919.3.579.2.531 Unknown [id number] 2.16.840.1.523738.3.579.2.531 Social History Date Type Detail Facility Unknown if ever smoked [employer] Other Sex Assigned At Sex Assigned At Bir th [employer] Other Start: 12-14-2022 End: 12-14-2022 Tobacco smoking status NHIS Never smoked tobacco (finding) [facility] Start: 1950 Sex Assigned At Female F [facility] Goals Date Patient Goal Desired Activity /State Progress note 01-10-2024 Note Date & Type Note Facility 01-10-2024 Note [place] Cardiology - [facility] Subjective Daya Ramsay is a [...] complication, without long-term current use of insulin ([facility]) Family History Problem Relation Name Age of [...] 4.5, BUN 29, (more content not included)... [facility] 12-14-2022 Note Date & Type Note Facility 12-14-2022 Procedure note [facility] Evaluation note 09-16-2022 Note Date & Type Note Facility 09-16-2022 Evaluation note Encounter Date Diagnosis Assessment Notes Aug, History of colon polyps (ICD-10 - Z86.010) [facility] Other Evaluation note 12-03-2021 Note Date & Type Note Facility 12-03-2021 Evaluation note Encounter Date Diagnosis Assessment Notes Nov, Left hand pain (ICD-10 - M79.642) Nov, Contusion of bone (ICD-10 - T14.8XXA) Continue use of brace with activity and while sleeping. Order given for occupational therapy Nov, Left wrist pain (ICD-10 - M25.532) [facility] Other Evaluation note 10-29-2021 Note Date & [...] Oct, Contusion of bone (ICD-10 - T14.8XXA) [facility] Other Evaluation note Note Date & Type Note Facility Evaluation note No assessment information availa [facility] Work Phone: History and physical note Note Date & Type Note Facility History and physical note Note Date/Time December 14, 2022 9:14am [facility] [address] [place] [address] Gastroenterology H&P Signed Patient: Daya Ramsay MR#: [id number] : 1950 Acct:[id number] Age/Sex: 72 / F Adm Date: 3 Loc: Room: Type: [facility] Attending Dr: Marko Flores MD Copies to: [...] <Electronically signed by Marko Flores MD> 12/14/22913 [facility] Work Phone: History general Narrative - [...] Surgical History hysterectomy Hospitalization History see above [facility] Other Hospital Discharge instructions Note Date & [...] problems. -Follow up with PCP. -Office number [phone]. [facility] Work Phone: Summary Purpose Family History [...] and content) DATE CREATED AUTHOR 01/30/2022 [facility] DATE CREATED AUTHOR AUTHOR'S ORGANIZ ATION 05/08/2023 [facility] DATE CREATED AUTHOR AUTHOR'S ORGANIZ ATION 01/30/2024 [facility] DATE CREATED AUTHOR AUTHOR'S ORGANIZ ATION 04/11/2024 [facility] REASON FOR VISIT (unrecogniz ed section [...] BE BASED ON THE PRIMARY CLINICAL RECORDS. [facility] [employer] [facility]. provides no warranty or guarantee of the accuracy or completeness of information in this document.
[2024-05-26 09:02] LABS: Hemoglobin 13.1 g/dL (12.0-16.0)
[2024-05-26] MEDS: ALBUTEROL SULFATE 2.5 MG/3 ML VIAL NEB IH (09:56)
--- NOTE | 2024-05-26 10:21 | XR_ITS ---
The [address] [address] Patient Name: JASON SAGASTUME MRN: [id number] date: 1950 Sex: F Assigned Patient Location: CARD Current Patient Location: CARD Accession/Order Number: [id number] Exam Date: 05/26/2024 10:32 Report Date: 05/26/2024 12:55 At the request of: MARYJANE SILVA Procedure: XR chest 2V EXAMINATION: XR chest 2V HISTORY: Dyspnea, unspecified [id number] COMPARISON: 08/13/2021 TECHNIQUE: PA and lateral FINDINGS: LUNGS: Mild left basilar infiltrate Small pulmonary nodules, size and density suggests granulomas. VASCULATURE: No increased pulmonary vasculature. PLEURA: No pneumothorax, effusion, or pleural thickening. CARDIAC: No cardiomegaly or cardiac silhouette abnormality. Aortic atherosclerosis MEDIASTINUM: No visible mass or adenopathy. BONES: No fracture or visible bone lesion. OTHER: Negative. XR/XR chest 2V IMPRESSION: Mild left basilar infiltrate Electronically authenticated by: MARS CASTILLO Date: 05/26/2024 12:55
== END 2024-05-26 08:49 | disposition home or self-care (01) ==
LOC: CARD 08:49
PROVIDERS: PCP Nurse Practitioner; Visit Provider Internal Medicine
DX: R06.00 Dyspnea, unspecified (principal)
CPT/HCPCS: 36415; 71046; 85018; 94060; 94726; 94729

== ENCOUNTER 2024-06-08 08:30 | Outpatient (OUT) | payer MEDICARE, OTHER, SELFPAY ==
--- NOTE | 2024-06-08 08:48 | CT_ITS ---
[address] [address] Patient Name: JASON SAGASTUME MRN: [id number] date: 1950 Sex: F Assigned Patient Location: CT Current Patient Location: CT Accession/Order Number: [id number] Exam Date: 06/08/2024 08:42 Report Date: 06/08/2024 09:14 At the request of: MARYJANE SILVA Procedure: CT chest wo con EXAMINATION: CT chest wo con HISTORY: Multiple Pulmonary Nodules R91.8, Abnormal Chest Xray COMPARISON: Chest x-ray 05/26/2024 TECHNIQUE: Multi-planar CT images were created with IV contrast. Axial, Coronal, and Sagittal images. Dose reduction techniques were achieved by using automated exposure control and/or adjustment of mA and/or kV according to patient size and/or use of iterative reconstruction technique. FINDINGS: LUNGS: Mild bilateral peripheral patchy infiltrates most significant in the left lower lobe. Scattered subcentimeter calcified and noncalcified pulmonary nodules PLEURA: No pleural effusion or pneumothorax VASCULATURE: No abnormality. DEIDRE: Calcified right hilar lymph nodes MEDIASTINUM: Calcified pretracheal lymph nodes CARDIAC: No enlargement or pericardial thickening Coronary arteries: Moderate calcifications AORTA: No aortic aneurysm calcific atherosclerosis CHEST WALL: No mass or axillary adenopathy. BONES: No bone lesion or fracture. LIMITED ABDOMEN: Prominent gallbladder wall likely related to nondistention OTHER: Negative. CT/CT chest wo con IMPRESSION: Scattered subcentimeter calcified and noncalcified pulmonary nodules, nonspecific Minimal basilar atelectasis Electronically authenticated by: MARS CASTILLO Date: 06/08/2024 09:14
== END 2024-06-08 08:31 | disposition home or self-care (01) ==
LOC: CT 08:30
PROVIDERS: PCP Nurse Practitioner; Visit Provider Internal Medicine
DX: R91.8 Other nonspecific abnormal finding of lung field (principal); R93.89 Abnormal findings on diagnostic imaging of other specified body structures
CPT/HCPCS: 71250

== ENCOUNTER 2025-05-10 13:44 | Outpatient (OUT) | payer MEDICARE, OTHER, SELFPAY ==
--- OUTSIDE RECORDS SUMMARY | 2024-09-19 05:30 | XMS_ITS ---
Author Organization [facility] in [place] Address [address] [place] [address] Care Team Providers Care Staff Services Manager Name Role Phone Livier Dorado Primary Care Provider Unavail able Jose Paul Unavailable [phone] Allergies Allergen (clinical drug ingredient) Drug/Non Drug Allergy documented on EMR Reaction Allergy Type Onset Date Status alendronate Alendronate Sodium nausea and vomiting Drug Allergy Active Latex Latex rash Allergy Active Substance with sulfonamide structure and antibacterial mechanism of action (substance) Sulfa Antibiotics rash Drug Allergy Active Penicillin rash Drug Allergy Active REASON FOR VISIT 1m Dyspnea Medications Medication SIG (Take, Route, Frequency, Duration) Notes Start Date End Date Status Ezetimibe 10 MG Oral for 90 Days Active Furosemide 20 MG Oral for 90 Days Active Albuterol Sulfate HFA 108 (9 0 Base) MCG/ACT 2 puffs as needed for SOB Inhalation Q4H for 30 days Active Atorvastatin Calcium 40 MG Oral for 30 Days Active Prevnar 20 0.5 ML as directed Intramuscular once for 1 09/19/2024 Active Breo Ellipta 100-25 MCG/ACT 1 puff Inhalation Once a day for 90 days Rinse after use Active Metoprolol Succinate ER 50 MG Oral for 90 Days Active Mometasone Furoate 50 MCG/ACT 4 sprays ( 2 sprays in each nostril) Nasally Once a day Active amLODIPine Besylate 10 MG Oral for 90 Days Active metFORMIN HCl ER 500 MG Oral for 90 Days Active hydroCHLOROthiazide 12.5 MG Oral for 90 Days Active Januvia 100 MG Oral for 90 Days Active Losartan Potassium 50 MG Oral for 90 Days Active Social History Tobacco Use: Social History Observation Description Date Details (start date - stop date) Never Smoker NA - NA Tobacco Control (Standard) Question Answer Notes Tobacco use: Nonsmoker Vital Signs Temperature 97.1 degrees Fahrenheit 09/19/20 24 Blood pressure systolic 131 mm Hg 09/19/20 24 Blood pressure diastolic 70 mm Hg 024 Heart Rate 72 /min 09/19/2024 Respiratory Rate 18 /min 09/19/2024 Height 66.5 in 09/19/2024 Weight 197.4 lbs 09/19/2024 BMI 31.38 kg/m2 09/19/2024 Oximetry 96 % 09/19/2024 Encounters Encounter Location Date Provider Diagnosis Pulmonary Medicine [place] [address] [place] [address] 09/19/2024 Paul Garcia Dyspnea, unspecified R06.00 ; Abnormal diffusion capacity determined by pulmonary function test R94.2 ; Multiple pulmonary nodules R91.8 ; Calcified lymph nodes I89.8 ; DM2 (diabetes mellitus, type 2) E11.9 ; Encounter for immunization Z23 ; Obesity, unspecified E66.9 and retirement (current) use of inhaled steroids Z79.51 Assessments Encounter Date Diagnosis (ICD Code) Assessment Notes Treatment Notes Treatment Clinical Notes Section Notes 09/19/2024 Dyspnea, unspecified (ICD-10 - R06.00) Breztri > Pulmicort 90 > Breo 100 Breo seems to be doing well for the patient - symptoms have mostly resolved and she is not requiring albuterol. Addressed patient's concerns about Breztri - if she had not experienced side effects after being on Breztri initially, it is less likely she would develop them overall. I still do not understand what the patient is describing when she stated that Breztri worked too well. As she is tolerating Breo, I recommended remaining on it. It is a little expensive at $90/month, but that seems to be the best coverage she can get for a maintenance inhaler. Her drug formulary may be changing at the beginning of the year as well. For now, refilled Breo for 3 month supply with refills to see if that is cheaper. F/U 1 year or sooner PRN. 09/19/2024 Abnormal diffusion capacity determined by pulmonary function test (ICD-10 - R94.2) PFT 05/26/2024 DLCO is 55%. Secondary to only 1 attempt? 09/19/2024 Multiple pulmonary nodules (ICD-10 - R91.8) Presumptive old granulomatous disease. 09/19/2024 Calcified lymph nodes (ICD-10 - I89.8) Most consistent with old granulomatous disease, along with pulmonary nodules. 09/19/2024 DM2 (diabetes mellitus, type 2) (ICD-10 - E11.9) Steroids prescribed for this patient's underlying pulmonary disease can adversely affect blood glucose levels, inducing hyperglycemia and worsening underlying diabetes. The patient is encouraged to follow up with the primary care provider to create a plan to manage diabetes in this situation. 09/19/2024 Encounter for immunization (ICD-10 - Z23) Discussed pulmonary-related vaccines today which involved shared clinical decision-making with the patient. -Influenza: Annual influenza vaccination is recommended. Explained that influenza can sometimes be fatal, especially in patients with underlying lung disease. Influenza vaccination is recommended for all people. -Pneumococcal: Reviewed the patient's pneumococcal vaccination record. The CDC currently recommends PCV-20 vaccination regardless of past pneumococcal vaccinations. She voiced she would get Prevnar-20. Rx was sent to her pharmacy. 09/19/2024 Obesity, unspecified (ICD-10 - E66.9) Patient's weight is inducing a restrictive pulmonary physiology. Weight loss indicated: Decrease calories, increase activity. 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 09/19/2024 Other Plan Of Treatment Medication Medication Name Sig Start Date Stop Date Notes Albuterol Sulfate HFA 108 (90 Base) MCG/ACT 2 puffs as needed for SOB Inhalation Q4H for 30 days Prevnar 20 0.5 ML as directed Intramus cular once for 1 09/19/2024 Breo Ellipta 100-25 MCG/ACT 1 puff Inhal ation Once a day for 90 days Treatment Notes Assessment Notes Dyspnea, unspecified Breztri > Pulmicort 90 > Breo 100 Breo seems to be doing well for the patient - symptoms have mostly resolved and she is not requiring albuterol. Addressed patient's concerns about Breztri - if she had not experienced side effects after being on Breztri initially, it is less likely she would develop them overall. I still do not understand what the patient is describing when she stated that Breztri worked too well. As she is tolerating Breo, I recommended remaining on it. It is a little expensive at $90/month, but that seems to be the best coverage she can get for a maintenance inhaler. Her drug formulary may be changing at the beginning of the year as well. For now, refilled Breo for 3 month supply with refills to see if that is cheaper. F/U 1 year or sooner PRN. Abnormal diffusion capacity determined by pulmonary function test PFT 05/26/2024 DLCO is 55%. Secondary to only 1 attempt? Multiple pulmonary nodules Presumptive old granulomatous disease. Calcified lymph nodes Most consistent with old granulomatous disease, along with pulmonary nodules. DM2 (diabetes mellitus, type 2) Steroids prescribed for this patient's underlying pulmonary disease can adversely affect blood glucose levels, inducing hyperglycemia and worsening underlying diabetes. The patient is encouraged to follow up with the primary care provider to create a plan to manage diabetes in this situation. Encounter for immunization Discussed pulmonary-related vaccines today which involved shared clinical decision-making with the patient. -Influenza: Annual influenza vaccination is recommended. Explained that influenza can sometimes be fatal, especially in patients with underlying lung disease. Influenza vaccination is recommended for all people. -Pneumococcal: Reviewed the patient's pneumococcal vaccination record. The CDC currently recommends PCV-20 vaccination regardless of past pneumococcal vaccinations. She voiced she would get Prevnar-20. Rx was sent to her pharmacy. Obesity, unspecified Patient's weight is inducing a restrictive pulmonary physiology. Weight loss indicated: Decrease calories, increase activity. terminal system operator (current) use of i nhaled steroids Patient was counseled to rinse & gargle with water after inhaled corticosteroid use. Next Appt Details Follow Up: 1 Year, Reason: Marivel kelly Provider Name:Paul Garcia, 09/25/2025 09:30:00 AM, [address] [place], [address], Procedure Notes * Category Sub-Category Detail Notes PFT Data: PFT 05/26/2024 - TB-FEV1/FVC: 85%-FEV1: 80%-FVC: 71%-Bronchodilator response: None-RV: 79%-T%-DLCO: 55% Alpha-1 Antitrypsin Screening Date: 06/20/2024 Genotype: MM Progress Notes * Daya RAMSAY LDOB:1950 (74 yo F)Acc No.[id number]:09/19/2024 Follow Up Patient: Daya AVILA Provider: Emile Garcia DO :1950 A ge:74 Y S ex:Female Date:09/19/2024 Address:[address] [place], [place] [id number] Pcp:PETAR Mcconnell Check In:09:16 AM ESTCheck O ut:09:52 AM EST Subjective: * Chief Complaints: * 1 m Dyspnea * HPI: G eneral: Patient's insurance would not cover Breztri, therefore Breo was prescribed. She states Breo helps, but not as much as Breztri. However, she voiced concerns with Breztri as it has more potential side effects than Breo (even though she never experienced them while on Breztri...) and that Breztri actually worked too well ...which I do not clearly understand what the patient is describing. She has not required albuterol since starting Breo.? She denies any adverse effects with it. Despite being covered, Breo costs $90/month. MA Intake Comments:. Patient presents for a follow-up for SOB. Patient was started on Breo her last visit and reports good benefit. Patient states she was previously on Breztri and states the medication was working better than Breo but is concerned about the side effects. Patient complains of SOB & Cough but states her symptoms have improved since starting Breo. Patient reports not having to use her rescue inhaler. Patient is under the care of [facility] Cardiology. * ROS: G eneral/Constitutional: Fever or sweats d enies. C hange of appetite d enies. C hills d enies. W eight Change d enies. H EENT: Dry mouth d enies. S ore throat d enies. O ral Ulcers d enies. P ost Nasal Drip D enies. C ongestion D enies. H oarseness?Denies. C ardiovascular: Tachycardia d enies. C hest pain d enies. P alpitations d enies. R espiratory: Chest tightness i mproved with Breo. P leurisy D enies. D yspnea i mproved with Breo. C ough i mproved with Breo. H emoptysis d enies. W heezing i mproved with Breo. G astrointestinal: Acid Reflux/GERD/Heartburn d enies. D ysphagia d enies. M usculoskeletal: Arthralgias/joint pain D enies. S kin: Easy bruising d enies. R federico d enies. ? N eurologic: Seizures d enies. T remor d enies. H ematology: Abnormal Bleeding d enies. P sychiatric: Anxiety d enies. * Active Problem List I25.10 CAD (coronary artery disease) Modified On:05/23/2024 Status:confirmed E11.9 DM2 (diabetes [facility], type 2) Modified On:05/23/2024 Status:confirmed R91.8 Multiple pulmonary n odules Modified On:06/20/2024 Status:confirmed R94.2 Abnormal diffusion c apacity determined by pulmonary function test Modified On:06/20/2024 Status:confirmed I89.8 Calcified lymph node s Modified On:06/20/2024 Status:confirmed E66.9 Obesity, unspecified Modified On:05/23/2024 Status:confirmed Z79.51 retirement (current) use of inhaled steroids Modified On:05/23/2024 Status:confirmed Z68.31 Body mass index [BMI ] 31.0-31.9, adult Modified On:06/20/2024 Status:confirmed * Medical History: * Surgical History: t onsillectomy and adenoidectomy septoplasty section hysterectomy right knee arthroscopy appendectomy Cardiac Catheterization 04/03/2014 * Hospitalization/Major Diagno stic Procedure: D enies Past Hospitalization * Family History: M other: COPD, stroke, diagnosed with Diabetes mellitus without mention of complication, type II or unspecified type, not stated as uncontrolled, Unspecified heart disease. S ister(s): asthma, breast cancer, thyroid cancer, diagnosed with Diabetes mellitus without mention of complication, type II or unspecified type, not stated as uncontrolled, Unspecified heart disease. F ather: diagnosed with Diabetes mellitus without mention of complication, type II or unspecified type, not stated as uncontrolled, Unspecified heart disease. * Social History: T obacco Use: T obacco Control (Standard) T obacco use: N onsmoker Electronic Cigarette use C urrent user N o M iscellaneous: O ccupation O ccupation: R [employer] Pets: dog. D rugs/Alcohol: D rugs H ave you used drugs other than those for medical reasons in the past 12 months? N o D oes the Patient have a History of Drug Abuse in the Past? N o Caffeine I ntake: 1 -2 cups per day Tea Do you drink alcohol?: No. Do you smoke marijuana?: Denies. * Medications: T akingAlbuterol Sulfate HFA 108 (90 Base) MCG/ACT Aerosol Solution 2 puffs as needed for SOB Inhalation Q4H amLODIPine Besylate 10 MG Tablet Oral Atorvastatin Calcium 40 MG Tablet Oral Breo Ellipta(Fluticasone Furoate-Vilanterol) 100-25 MCG/ACT Aerosol Powder Breath Activated Inhalation Ezetimibe 10 MG Tablet Oral Furosemide 20 MG Tablet Oral hydroCHLOROthiazide 12.5 MG Tablet Oral Januvia(SITagliptin Phosphate) 100 MG Tablet Oral Losartan Potassium 50 MG Tablet Oral metFORMIN HCl ER 500 MG Tablet Extended Release 24 Hour Oral Metoprolol Succinate ER 50 MG Tablet Extended Release 24 Hour Oral Mometasone Furoate 50 MCG/ACT Suspension 4 sprays (2 sprays in each nostril) Nasally Once a day Taking Albuterol Sulfate HFA 108 (90 Base) MCG/ACT Aerosol Solution 2 puffs as needed for SOB Inhalation Q4H Taking amLODIPine Besylate 10 MG Tablet Oral Taking Atorvastatin Calcium 40 MG Tablet Oral Taking Breo Ellipta(Fluticasone Furoate-Vilanterol) 100-25 MCG/ACT Aerosol Powder Breath Activated Inhalation Taking Ezetimibe 10 MG Tablet Oral Taking Furosemide 20 MG Tablet Oral Taking hydroCHLOROthiazide 12.5 MG Tablet Oral Taking Januvia(SITagliptin Phosphate) 100 MG Tablet Oral Taking Losartan Potassium 50 MG Tablet Oral Taking metFORMIN HCl ER 500 MG Tablet Extended Release 24 Hour Oral Taking Metoprolol Succinate ER 50 MG Tablet Extended Release 24 Hour Oral Taking Mometasone Furoate 50 MCG/ACT Suspension 4 sprays (2 sprays in each nostril) Nasally Once a day DiscontinuedBreztri Aerosphere(Zzxyxnu-Hrarhgrruay-Nrvxuxhryi) 160-9-4.8 MCG/ACT Aerosol 2 puffs Inhalation BID Rinse after useMedication List reviewed and reconciled with the patientDiscontinued Breztri Aerosphere(Lqvoswt-Kgirzmsgzes-Voqwdcqeic) 160-9-4.8 MCG/ACT Aerosol 2 puffs Inhalation BID Rinse after useMedication List reviewed and reconciled with the patient * Allergies: P enicillin: rash - AllergySulfa Antibiotics: rash - AllergyLatex: rash - AllergyAlendronate Sodium: nausea and vomiting - Allergyno[Allergies Verified] Objective: * Vitals: W t:197.4lbs, Ht: 66.5 in, BP:sittin/70mm Hg, Temp:Forehead:97.1F, HR:72/min, RR:18/min, BMI:31.38Index, Oxygen sat %:Room Air:96%, Ht-cm: 168.91 cm, Wt-k.54 kg. * Examination: E xam: GENERAL APPEARANCE: A ppears stated age. Skin N ormal. Mouth P ink and moist. No candidiasis. Oropharynx M allampati Class II. Trachea M idline. Chest N ormal. Respiratory Normal M ovements, E ffort N ormal. Auscultation C lear breath sounds today. Cardiac R egular rate and rhythm. Gastrointestinal N ormal. Vascular N o edema. Musculoskeletal N ormal posture. Neurological F ocal, intact. Psychiatric A lert and oriented x3. Mentation/Cognition N ormal. Assessment: * Assessment: 1. D yspnea, unspecified - R06.00 (Primary) 2 . A bnormal diffusion capacity determined by pulmonary function test - R94.2 3 . M ultiple pulmonary nodules - R91.8 4 . C alcified lymph nodes - I89.8 5 . D M2 (diabetes mellitus, type 2) - E11.9 6 . E ncounter for immunization - Z23 7 . O besity, unspecified - E66.9 8 . L rylee term (current) use of inhaled steroids - Z79.51 Plan: * Treatment: 2. A bnormal diffusion capacity determined by pulmonary function test Notes: PFT 05/26/2024 DLCO is 55%. Secondary to only 1 attempt? 3. M ultiple pulmonary nodules Notes: Presumptive old granulomatous disease. 4. C alcified lymph nodes Notes: Most consistent with old granulomatous disease, along with pulmonary nodules. 5. D M2 (diabetes mellitus, type 2) Notes: Steroids prescribed for this patient's underlying pulmonary disease can adversely affect blood glucose levels, inducing hyperglycemia and worsening underlying diabetes. The patient is encouraged to follow up with the primary care provider to create a plan to manage diabetes in this situation. ? 6. E ncounter for immunization Start Prevnar 20 Suspension Prefilled Syringe, 0.5 ML, as directed, Intramuscular, once, 1, 1, Refills 0. Notes: Discussed pulmonary-related vaccines today which involved shared clinical decision-making with the patient. -Influenza: Annual influenza vaccination is recommended. Explained that influenza can sometimes be fatal, especially in patients with underlying lung disease. Influenza vaccination is recommended for all people. -Pneumococcal: Reviewed the patient's pneumococcal vaccination record. The CDC currently recommends PCV-20 vaccination regardless of past pneumococcal vaccinations. She voiced she would get Prevnar-20. Rx was sent to her pharmacy. 7. O besity, unspecified Notes: Patient's weight is inducing a restrictive pulmonary physiology. Weight loss indicated: Decrease calories, increase activity. 8. L rylee term (current) use of inhaled steroids Notes: Patient was counseled to rinse & gargle with water after inhaled corticosteroid use. * Procedures: A lpha-1 Antitrypsin: Screening Date: . Genotype: M M. P FT: Data: PFT 05/26/2024 - [facility] -FEV1/FVC: 85% -FEV1: 80% -FVC: 71% -Bronchodilator response: None -RV: 79% -T% -DLCO: 55%. * Procedure Codes: * Preventive Medicine: COVID Vaccination: H as patient had COVID Vaccination? COVID Vaccination N o Patient Refused Immunization Status: P neumovacc p neumovacc 23- 10/25/2018. I nfluenza P t Refused. Z ostivax 0 02/08/2019. B oostrix 0 08/11/2024. Screenings/Counseling: F ALL RISK SCREENING Fall Risk Assessment: N o falls in the past year Are you afraid of falling? N o T OBACCO ACTION PLAN Exclusion: M edical Reason Non Smoker Type of Medical Reason: N ot indicated F MANSI EXCLUSION Reason: P atient Reason refused/declined Type of Patient Reason: D rug declined by patient B OR ACTION PLAN Above Normal BMI Follow-up D ietary management education, guidance, and counseling R SV-08/11/2024. * Follow Up: 1 Year (Reason: Dyspnea) * * Sign off status: Completed Visit Status: C HK (Check Out) true * Provider: Emile Garcai DO Date: 1 Generated for Ulises arenas/Krystyna/Marcianoitting on: 0 05/10/2025 01:49 PM EDT History and Physical Notes * HPI (History of Present Illness) Category Sub-Category Detail Notes Category Not es General Patient present s for a follow-up for SOB. Patient was started on Breo her last visit and reports good benefit. Patient states she was previously on Breztri and states the medication was working better than Breo but is concerned about the side effects. Patient complains of SOB & Cough but states her symptoms have improved since starting Breo. Patient reports not having to use her rescue inhaler. Patient is under the care of [facility] Cardiology. Examination Category Sub-Category Detail Notes Category Not es Exam GENERAL APPEARANCE: Appears stated age Skin Normal Mouth [place] and moist. No c andidiasis Trachea Midline Chest Normal Respiratory Normal Movements, Ef fort Normal Auscultation Clear breath sounds today Cardiac Regular rate and rhy thm Gastrointestinal Normal Vascular No edema Musculoskeletal Normal posture Neurological Focal, intact Psychiatric Alert and oriented x 3 Mentation/Cognition Normal Oropharynx Mallampati Class II
--- OUTSIDE RECORDS SUMMARY | 2024-12-13 12:32 | XMS_ITS ---
Author Organization [facility] in [place] Address [address] [place] [address] Care Team Providers Care Precinct Commanding Officer Name Role Phone Akira MARLOWP-CLivier Primary Care Provider Unavail Paul Gilbert Unavailable [phone] REASON FOR VISIT Breo Encounters Encounter Location Date Provider Diagnosis Pulmonary Medicine [place] [address] [place] [address] 12/13/2024 Paul Garcia Plan Of Treatment Next Appt Details Provider Name:Paul Garcia, 09/25/2025 09:30:00 AM, [address] [place], [address], Progress Notes * Daya RAMSAY LDOB:1950 (74 yo F)Acc No.[id number]:12/13/2024 Patient: Daya AVILA :1950 A ge:74 Y S ex:Female Address:[address] [place] [address], [address] * true * Date: Generated for Ulises arneas/Krystyna/eTransmitting on: 0 05/10/2025 01:49 PM EDT
--- OUTSIDE RECORDS SUMMARY | 2025-05-10 13:49 | XMS_ITS | Encounter Summary ---
Author Organization [facility] Address [address] [place] [address] Care Team Providers Care Ruching Machine Operator Name Role Phone Connie Taylor MD Primary Care Provider [phone] Sarwat Leon MD Primary Care Provider [phone] Reason for Visit * Reason Comments Med Refill Encounter Details Date Type Department Care Team (Late st Contact Info) Description 05/30/2023 Refill [facility] [address] [place] [phone] Graham Ferguson MD [address] [facility] [place] [address] Nonrheumatic aortic (valve) stenosis Social History Tobacco Use Types Packs/Day Years Used Date Smoking Tobacco: Never Smokeless Tobacco: Never Alcohol Use Standard Drinks/Week Comments Not Currently 0 (1 standard drink = 0.6 oz pur e alcohol) Comments Unknown Sex and Gender Information Value Date Recorded Sex Assigned at Not on file Legal Sex Female 9:52 PM EDT Gender Identity Not on file Sexual Orientation Not on file documented as of this encounter Plan of Treatment Upcoming Encounters Date Type Department Care Team (Late st Contact Info) Description 05/21/2025 10:30 AM EDT Office Visit [facility] [address] [place] [address] Graham Ferguson MD [address] [facility] [place] [address] documented as of this encounter Visit Diagnoses Diagnosis Nonrheumatic aortic (valve) stenosis documented in this encounter Care Teams Ruching Machine Operator Relationship Specialty Start Date End Date Connie Taylor MD [address] PCP - General 09/10/22 01/09/24 Sarwat Leon MD [address] [place] [address] PCP - General Family Medicine 01/10/24 documented as of this encounter
--- OUTSIDE RECORDS SUMMARY | 2025-05-10 13:49 | XMS_ITS | Encounter Summary ---
Author Organization [facility] Address [address] [place] [address] Care Team Providers Care Link Wire Fabric Machine Operator Name Role Phone Connie Taylor MD Primary Care Provider [phone] Sarwat Leon MD Primary Care Provider [phone] Reason for Visit * Reason Comments Med Refill Encounter Details Date Type Department Care Team (Late st Contact Info) Description 03/29/2023 Refill [facility] [address] [place] [address] Pratibha Hawthorne, RELEASE OF INFORMATION SPECIALIST [address] [place] [id number] Essential hypertension Social History Tobacco Use Types Packs/Day Years [...] Description 05/21/2025 10:30 AM EDT Office Visit [facility] [address] [place] [address] Graham Ferguson MD [address] [place] [id number] documented as of this encounter Visit Diagnoses Diagnosis Essential hypertension Unspecified essential hypertension documented in this encounter Care Teams Link Wire Fabric Machine Operator Relationship Specialty Start Date End Date Connie Taylor MD [address] PCP - General 09/10/22 01/09/24 Sarwat Leon MD [address] [place] [address] PCP - General Family Medicine 01/10/24 documented as of this encounter
--- OUTSIDE RECORDS SUMMARY | 2025-05-10 13:49 | XMS_ITS | Clinical Summary ---
Author Organization [facility] Address [address] [place] [address] Care Team Providers Care Doctor Of Podiatric Medicine Name Role Phone Sarwat Leon MD Primary Care Provider [phone] Allergies Active Allergy Reactions Criticality Noted Date Comments Alendronate Other 06/28/2024 Latex 09/10/2022 Penicillins 09/10/2022 Sulfa (Sulfonamide Antibiotics) 08/29 Medications SITagliptin phosphate (Januvia) 100 mg tablet Take 1 tablet every day by oral route for 90 days. Active metFORMIN XR (Glucophage-XR) 500 mg 24 hr tablet Take 1 tablet twice a day by oral route for 90 days. Active aspirin 81 mg EC tablet Take 1 tablet every other day by oral route. Active Pulmicort Flexhaler 90 mcg/actuation inhaler Inhale 1 puff in the morning and at bedtime. 4 Active alendronate (Fosamax) 70 mg tablet Take 70 mg by mouth every 7 (seven) days. 3 Active budesonide-glycopy r-formoterol (Breztri Aerosphere) 160-9-4.8 mcg/actuation HFA aerosol inhaler every 12 (twelve) hours. 4 Active albuterol 90 mcg/actuation inhaler 2 puffs as needed for SOB Inhalation Q4H for 30 days 4 Active amLODIPine (Norvasc) 10 mg tabletIndications: Essential hypertension Take 1 tablet (10 mg) by mouth in the morning. 90 tablet 3 5 026 Active atorvastatin (Lipitor) 40 mg tabletIndications: Coronary artery disease involving [place] coronary artery of [place] heart without angina pectoris,Mixed hyperlipidemia Take 1 tablet (40 mg) by mouth at bedtime. 90 tablet 3 5 026 Active ezetimibe (Zetia) 10 mg tabletIndications: Coronary artery disease involving [place] coronary artery of [place] heart without angina pectoris,Mixed hyperlipidemia Take 1 tablet (10 mg) by mouth at bedtime. 90 tablet 3 5 026 Active hydroCHLOROthiazid e 12.5 mg tabletIndications: Essential (primary) hypertension Take 1 tablet (12.5 mg) by mouth in the morning. 90 tablet 3 5 Active losartan (Cozaar) 50 mg tabletIndications: Essential (primary) hypertension Take 1 tablet (50 mg) by mouth in the morning. 90 tablet 3 5 Active metoprolol succinate XL (Toprol-XL) 50 mg 24 hr tabletIndications: Essential (primary) hypertension Take 1 tablet (50 mg) by mouth in the morning. Do not crush or chew. 90 tablet 3 5 Active furosemide (Lasix) 20 mg tabletIndications: Other forms of dyspnea Take 1 tablet (20 mg) by mouth in the morning. 90 tablet 3 5 Active Active Problems Problem Noted Date Diagnosed Date Body mass index (BMI) 31.0-31.9, adult 4 Calcified lymph nodes 06/28/2024 Multiple pulmonary nodules 06/28/2024 Pulmonary function studies abnormal 06/28/2024 NEWSOME (dyspnea on exertion) 01/22/2023 Assessment & Plan (01/22/2023 10:29 AM EST): Remains stable, does not interfere with activity Type 2 diabetes mellitus wit hout complication, without long-term current use of insulin 01/22/2023 Assessment & Plan (01/22/2023 10:29 AM EST): F/U with PCP and endocrinology Will add A1C to routine labs Aortic valve stenosis 11/20/2020 Overview (01/22/2023): Strong family hx of bicuspid valve ECHO 12/06/2020: preserved LVSF with EF >55%, no significant valvular dysfunction (trileaflet apperance), no pericardial effusion Assessment & Plan (01/22/2023 10:27 AM EST): Echo 2020 showed no significant valvular dysfunction, no concerning symptoms currently Will continue to monitor D/W pt to call office for increasing shortness of breath, orthopnea, leg swelling, chest pain or any other concerns. Coronary atherosclerosis 11/20/2020 Overview (01/22/2023): Images from the original note were not included. Mild per 2013 cath - Assessment & Plan (01/22/2023 10:12 AM EST): Continue ASA, lipitor, toprol and losatan continue risk factor modifications- heart healthy diet, regular exercise as tolerated and continue all medications. 09/12/21- CBC normal BUN 24, CR 1.08, K+ 3.5 Normal liver function Edema of lower extremity 11/20/2020 Family history of aortic aneurysm 11/20/2020 Hyperlipidemia 11/20/2020 Assessment & Plan (01/22/2023 10:28 AM EST): Continue lipitor Script for routine annual labs provided to pt. Hypertensive disorder 10/16/2019 Assessment & Plan (01/22/2023 10:28 AM EST): Hypertension is well controlled 116/87 Continue amlodipine, lasix, losartan and toprol Family History Medical History Relation Name Comments Aortic aneurysm Father Aortic aneurysm Paternal Grandmother bicuspid cardiac valve Sister bicuspid cardiac valve Son Relation Name Status Comments Father Paternal Grandmother Sister Son Other Social History Tobacco Use Types Packs/Day Years Used Date Smoking Tobacco: Never Smokeless Tobacco: Never Tobacco Cessation:Counseling Given: Not Answered Alcohol Use Standard Drinks/Week Comments Not Currently 0 (1 standard drink = 0.6 oz pur e alcohol) [place] Safety & Environment Answer Date Rec orded Fear of Current or Ex-Partner Not on file Emotionally Abused Not on file 01/20/2024 Physically Abused Not on file 01/20/2024 Sexually Abused Not on file 01/20/2024 Physically or Sexually Abused Not on file Comments Unknown Sex and Gender Information Value Date Recorded Sex Assigned at Not on file Legal Sex Female 9:52 PM EDT Gender Identity Not on file Sexual Orientation Not on file Last Filed Vital Signs Vital Sign Reading Time Taken Comments Blood Pressure 120/66 06/28/2024 9:14 AM EDT Pulse 71 06/28/2024 9:14 AM EDT Temperature - - Respiratory Rate - - Oxygen Saturation 95% 06/28/2024 9:14 AM EDT Inhaled Oxygen Concentration - - Weight 88.5 kg (195 lb) 06/28/2024 9:14 AM EDT Height 171.5 cm (5' 7.5 ) 06/28/2024 9:14 AM EDT Body Mass Index 30.09 06/28/2024 9:14 AM EDT Plan of Treatment Upcoming Encounters Date Type Department Care Team (Late st Contact Info) Description 05/21/2025 10:30 AM EDT Office Visit [facility] [place] [address] [place] [address] Graham Ferguson MD [address] [facility] [place] [id number] Health Maintenance Due Date Last Done Comments CT Colonography 1952 Colonoscopy 1952 Colorectal Cancer Screening 1952 Diabetes: Hemoglobin A1C 1952 FIT-DNA 1952 FIT 1952 FOBT 1950 Medicare Annual Wellness (AWV) 1952 Sigmoidoscopy 1952 Diabetes: Retinopathy Screening 1962 Depression Screening 1964 Mammogram 1992 Fall Risk Screening 2017 COVID-19 Vaccine (2023-2 5 season) 2024 Influenza Vaccine (Season Ended) 2025 09/26/2019, 10/25/2018, 10/11/2017 Diabetes: Urine Protein Screening 10/23/2025 10/23/2024 Adult Tetanus 08/11/2034 08/11/2024 Pneumococcal Vaccine: 50+ Years Completed 10/25/2018, 11/08/2017 Zoster Vaccines Completed 02/08/2019, 11/02/2018, 11/18/2012 HIB Vaccines Aged Out No longer eligi ble based on patient's age to complete this topic HPV Vaccines Aged Out No longer eligi ble based on patient's age to complete this topic IPV Vaccines Aged Out No longer eligi ble based on patient's age to complete this topic Meningococcal B Vaccine Aged Out No l onger eligible based on patient's age to complete this topic Meningococcal Vaccine Aged Out No anat catia eligible based on patient's age to complete this topic Rotavirus Vaccines Aged Out No longer eligible based on patient's age to complete this topic Insurance MEDICARE MEDICAL VENICE Care Teams Doctor Of Podiatric Medicine Relationship Specialty Start Date End Date Sarwat Leon MD [address] [place] [address] PCP - General Family Medicine 01/10/24
--- OUTSIDE RECORDS SUMMARY | 2025-05-10 13:49 | XMS_ITS | Patient Health Record ---
Author Organization The [facility] in [place] Address [address] [place] [address] Care Team Providers Care Saw Tailer Name Role Phone Livier Dorado Primary Care Provider Unavail able Maryjane Silva Unavailable [phone] Allergies Allergen (clinical drug ingredient) Drug/Non Drug Allergy documented on EMR Reaction Allergy Type Onset Date Status alendronate Alendronate Sodium nausea and vomiting Drug Allergy Active Latex Latex rash Allergy Active Substance with sulfonamide structure and antibacterial mechanism of action (substance) Sulfa Antibiotics rash Drug Allergy Active Penicillin rash Drug Allergy Active Results Component Value Reference Range Notes XR Chest PA and Lateral (Rou gema CXR) * Reviewed date:06/05/2024 08:52:00 AM Interpretation: Performing Lab: Notes/Report: CT chest wo con Reviewed date:06/13/2024 09:57:57 AM Interpretation: Performing Lab: Notes/Report: Source Facility: [place] [address] CT Scan Report Signed Patient: DAYA RAMSAY MR#: [id number] : 1950 Acct:[id number] Age/Sex: 73 / F ADM Date: 06/08/24 Loc: CT Attending Dr: Maryjane Silva D.O. Ordering Physician: Maryjane Silva D.O. Date of Service: 06/08/24 Procedure(s): CT chest wo con Accession Number(s): [id number] cc: LIVIER ARROYO [address] [address] Patient Name: DAYA RAMSAY MRN: [id number] date: 1950 Sex: F Assigned Patient Location: CT Current Patient Location: CT Accession/Order Number: [id number] Exam Date: 06/08/2024 08:42 Report Date: 06/08/2024 09:14 At the request of: MARYJANE SILVA Procedure: CT chest wo con EXAMINATION: CT chest wo con HISTORY: Multiple Pulmonary Nodules R91.8, Abnormal Chest Xray COMPARISON: Chest x-ray 05/26/2024 TECHNIQUE: Multi-planar CT images were created with IV contrast. Axial, Coronal, and Sagittal images. Dose reduction techniques were achieved by using automated exposure control and/or adjustment of mA and/or kV according to patient size and/or use of iterative reconstruction technique. FINDINGS: LUNGS: Mild bilateral peripheral patchy infiltrates most significant in the left lower lobe. Scattered subcentimeter calcified and noncalcified pulmonary nodules PLEURA: No pleural effusion or pneumothorax VASCULATURE: No abnormality. DEIDRE: Calcified right hilar lymph nodes MEDIASTINUM: Calcified pretracheal lymph nodes CARDIAC: No enlargement or pericardial thickening Coronary arteries: Moderate calcifications AORTA: No aortic aneurysm calcific atherosclerosis CHEST WALL: No mass or axillary adenopathy. BONES: No bone lesion or fracture. LIMITED ABDOMEN: Prominent gallbladder wall likely related to nondistention OTHER: Negative. CT/CT chest wo con IMPRESSION: Scattered subcentimeter calcified and noncalcified pulmonary nodules, nonspecific Minimal basilar atelectasis Electronically authenticated by: MARS CASTILLO Date: 06/08/2024 09:14 Dictated By: Mars Castillo M.D. Signed By: 06/08/24915 DD/ 3 TD/TT: Hardware Designer: [place] [address] CT Scan Report Signed Patient: DAYA RAMSAY MR#: [id number] : 1950 Acct:[id number] Age/Sex: 73 / F ADM Date: 06/08/24 Loc: CT Attending Dr: Maryjane Silva D.O. Ordering Physician: Maryjane Silva D.O. Date of Service: 06/08/24 Procedure(s): CT torey st wo con Accession Number(s): [id number] cc: LIVIER ARROYO [address] [address] Patient Name: DAYA RAMSAY MRN: [id number] date: 1950 Sex: F Assigned Patient Location: CT Current Patient Loca tion: CT Accession/Order Numb er: [id number] Exam Date: 06/08/2024 08:42 Report Date: 06/08/2024 09:14 At the request of: MARYJANE SILVA Procedure: CT chest wo con EXAMINATION: CT ches t wo con HISTORY: Multiple Pulmonary Nodules R91.8, Abnormal Chest Xray COMPARISON: Chest x- ray 05/26/2024 TECHNIQUE: Multi-emma joey CT images were created with IV contrast. Axial, Coronal, and Sagitta l images. Dose reduction techniques were achieved by using automated exposure control and/or adjustment of mA and/or kV according to patient size and/or use of iterative reconstruction technique. FINDINGS: LUNGS: Mild bilatera l peripheral patchy infiltrates most significant in the left lower lobe. Scattered subcentimeter calcified and noncalcified pulmonary nodules PLEURA: No pleural effusion or pneumothorax VASCULATURE: No abnormality. DEIDRE: Calcified righ t hilar lymph nodes MEDIASTINUM: Calcifi ed pretracheal lymph nodes CARDIAC: No enlargem ent or pericardial thickening Coronary arteries: Moderate calcifications AORTA: No aortic ane urysm calcific atherosclerosis CHEST WALL: No mass or axillary adenopathy. BONES: No bone lesio n or fracture. LIMITED ABDOMEN: Prominent gallbladder wall likely related to nondistention OTHER: Negative. C T/CT chest wo con IMPRESSION: Scattered subcentime ter calcified and noncalcified pulmonary nodules, nonspecific Minimal basilar atelectasis Electronically authenticated by: MARS CASTILLO Date: 06/08/2024 09:14 Dictated By: Master Castillo M.D. Signed By: 06/08/24915 DD/ 3 TD/TT: Hardware Designer: XR chest 2V Reviewed date:06/05/2024 07:51:05 AM Interpretation: Performing Lab: Notes/Report: Source Facility: [facility]-[address] [place] [address] [place] [address] XRay Report Signed Patient: DAYA RAMSAY MR#: [id number] : 1950 Acct:[id number] Age/Sex: 73 / F ADM Date: 05/26/24 Loc: CARD Attending Dr: Maryjane Silva D.O. Ordering Physician: Maryjane Silva D.O. Date of Service: 05/26/24 Procedure(s): XR chest 2V Accession Number(s): [id number] cc: LIVIER ARROYO; Maryjane Silva D.O. [facility] [place] [address] Patient Name: DAYA RAMSAY MRN: [id number] date: 1950 Sex: F Assigned Patient Location: CARD Current Patient Location: CARD Accession/Order Number: [id number] Exam Date: 05/26/2024 10:32 Report Date: 05/26/2024 12:55 At the request of: MARYJANE SILVA Procedure: XR chest 2V EXAMINATION: XR chest 2V HISTORY: Dyspnea, unspecified R0600 COMPARISON: 08/13/2021 TECHNIQUE: PA and lateral FINDINGS: LUNGS: Mild left basilar infiltrate Small pulmonary nodules, size and density suggests granulomas. VASCULATURE: No increased pulmonary vasculature. PLEURA: No pneumothorax, effusion, or pleural thickening. CARDIAC: No cardiomegaly or cardiac silhouette abnormality. Aortic atherosclerosis MEDIASTINUM: No visible mass or adenopathy. BONES: No fracture or visible bone lesion. OTHER: Negative. XR/XR chest 2V IMPRESSION: Mild left basilar infiltrate Electronically authenticated by: MARS CASTILLO Date: 05/26/2024 12:55 Dictated By: Mars Castillo M.D. Signed By: 05/26/24 1258 DD/ 1255 TD/TT: Hardware Designer: [place] [address] XRay Report Signed Patient: DAYA RAMSAY MR#: [id number] : 1950 Acct:[id number] Age/Sex: 73 / F ADM Date: 05/26/24 Loc: CARD Attending Dr: Maryjane Sliva D.O. Ordering Physician: Maryjane Silva D.O. Date of Service: 05/26/24 Procedure(s): XR chest 2V Accession Number(s): [id number] cc: LIVIER ARROYO; Maryjane Silva D.O. [place] [id number] Patient Name: DAYA RAMSAY MRN: [id number] date: 1950 Sex: F Assigned Patient Location: CARD Current Patient Loca tion: CARD Accession/Order Numb er: [id number] Exam Date: 05/26/2024 10:32 Report Date: 05/26/2024 12:55 At the request of: MARYJANE SILVA Procedure: XR chest 2V EXAMINATION: XR chest 2V HISTORY: Dyspnea, unspecified R0600 COMPARISON: 08/13/2021 TECHNIQUE: PA and lateral FINDINGS: LUNGS: Mild left bas ilar infiltrate Small pulmonary nodules, size and density suggests granulomas. VASCULATURE: No incr eased pulmonary vasculature. PLEURA: No pneumotho rax, effusion, or pleural thickening. CARDIAC: No cardiome demi or cardiac silhouette abnormality. Aortic atherosclerosis MEDIASTINUM: No visi ble mass or adenopathy. BONES: No fracture o r visible bone lesion. OTHER: Negative. X R/XR chest 2V IMPRESSION: Mild left basilar infiltrate Electronically authenticated by: MARS CASTILLO Date: 05/26/2024 12:55 Dictated By: Master Castillo M.D. Signed By: 05/26/24 1258 DD/ 1255 TD/TT: Hardware Designer: HEMOGLOBIN Reviewed date:06/05/2024 07:51:09 AM Interpretation: Performing Lab: Notes/Report: [facility] , Hemoglobin 13.1 12.0-16.0 g/dL Performing Lab: see note ML - [facility] LB CT Chest w/o contrast Reviewed date:06/08/2024 09:40:52 AM Interpretation: Performing Lab: Notes/Report: RT pulmonary function test Reviewed date:06/06/2024 01:06:02 PM Interpretation: Performing Lab: Notes/Report: Source Facility: [place] [address] [place] [address] Respiratory Report Signed Patient: DAYA RAMSAY MR#: [id number] : 1950 Acct:[id number] Age/Sex: 73 / F ADM Date: 05/26/24 Loc: CARD Attending Dr: Maryjane Silva D.O. Ordering Physician: Maryjane Silva D.O. Date of Service: 05/26/24 Procedure(s): RT pulmonary function test Accession Number(s): [id number] cc: [facility] Test Date: 2024-05-26 Pat Name: DAYA RAMSAY Department: Room: - Gender: Female Patient'S Librarian: Yevgeniy Kruger RRT : 1950 Requested By: Maryjane Silva Order Number: [id number] Reading MD: Maryjane Silva Interpretive Statements Pulmonary function testing was completed according to ATS criteria. Findings were considered accurate and reproducible, with exception of DLCO which did not meet ATS standards. Both pre- and post-bronchodilator values utilized for spirometry. Spirometry (based on pre-bronchodilator values): -FEV1/FVC: Normal @ 85% -FEV1: Low normal @ 80% -FVC: Mildly decreased @ 71% -There is no significant bronchodilator response. Lung volumes by plethysmography (based on pre-bronchodilator values): -RV: Mildly reduced @ 79% -TLC: Low normal @ 82% Diffusion capacity: -DLCO: Moderate reduction @ 55% when corrected for Hb 13.1g/dL Impressions: -Spirometry suggests mild restriction though does not meet diagnostic criteria as TLC remains normal. Moderate diffusion impairment. This pattern may suggest underlying interstitial lung disease or cardiac issues. Clinical correlation required. Electronically Signed On 06-06-2024 12:47:19 EDT by Maryjane Silva Dictated By: Maryjane Silva D.O. Signed By: 06/06/24 1247 DD/ 0906 TD/TT: Hardware Designer: The [place] [id number] Respiratory Report Signed Patient: DAYA RAMSAY MR#: [id number] : 1950 Acct:[id number] Age/Sex: 73 / F ADM Date: 05/26/24 Loc: CARD Attending Dr: Maryjane Silva D.O. Ordering Physician: Maryjane Silva D.O. Date of Service: 05/26/24 Procedure(s): RT pulmonary function test Accession Number(s): [id number] cc: [facility] Test Date: 2024-05-26 Pat Name: DAYA Jasso Department: 46 Room: - Gender: Female Patient'S Librarian: Yevgeniy Kruger RRT : 1950 Requested By: Maryjane Silva Order Number: [id number] Reading MD: Maryjane Silva Interpretive Statements Pulmonary function testing was completed according to ATS criteria. Findings were considered accu rate and reproducible, with exception of DLCO which did not meet ATS standar ds. Both pre- and post-bronchodilator values utilized for spirometry. Spirometry (based on pre-bronchodilator values): -FEV1/FVC: Normal @ 85% -FEV1: Low normal @ 80% -FVC: Mildly decreas ed @ 71% -There is no signifi cant bronchodilator response. Lung volumes by plethysmography (based on pre-bronchodilator values): -RV: Mildly reduced @ 79% -TLC: Low normal @ 82% Diffusion capacity: -DLCO: Moderate redu ction @ 55% when corrected for Hb 13.1g/dL Impressions: -Spirometry suggests mild restriction though does not meet diagnostic criteria as TLC jonathan ins normal. Moderate diffusion impairment. This pattern may suggest underlyi ng interstitial lung disease or cardiac issues. Clinical correlation required. Electronically Carolyn d On 06-06-2024 12:47:19 EDT by Maryjane Silva Dictated By: Emile Silva D.O. Signed By: 06/06/24 1247 DD/ 5 TD/TT: Hardware Designer: Reason For Referral No Information Medications Medication SIG (Take, Route, Frequency, Duration) Notes Start Date End Date Status metFORMIN HCl ER 500 MG Oral for 90 Days Active Metoprolol Succinate ER 50 MG Oral for 90 Days Active Mometasone Furoate 50 MCG/ACT 4 sprays ( 2 sprays in each nostril) Nasally Once a day Active Ezetimibe 10 MG Oral for 90 Days Active Furosemide 20 MG Oral for 90 Days Active Albuterol Sulfate HFA 108 (9 0 Base) MCG/ACT 2 puffs as needed for SOB Inhalation Q4H for 30 days Active Breo Ellipta 100-25 MCG/ACT 1 puff Inhalation QD for 90 days Rinse after use Active amLODIPine Besylate 10 MG Oral for 90 Days Active hydroCHLOROthiazide 12.5 MG Oral for 90 Days Active Januvia 100 MG Oral for 90 Days Active Atorvastatin Calcium 40 MG Oral for 30 Days Active Losartan Potassium 50 MG Oral for 90 Days Active Prevnar 20 0.5 ML as directed Intramuscular once for 1 09/19/2024 Active Immunizations Vaccine Route Administration Date Status Comme nts Arexvy Unknown 08/11/2024 Administered Flu, Fluad (86392) 65 yrs + High Dose Seasonal (9253-4168) Unknown 09/26/2019 Administered Pneumococcal (Pneumovax 23) Unknown 10/25/2018 Administ ered Tdap (Boostrix) Unknown 08/11/2024 Administered ZOSTER (SHINGLES) VACCINE (HZV) Unknown 02/08/2019 Admi nistered Social History Tobacco Use: Social History Observation Description Date Details (start date - stop date) Never Smoker NA - NA Tobacco Control (Standard) Question Answer Notes Tobacco use: Nonsmoker Problems Problem Type SNOMED Code ICD Code Onset Dates Problem Status W/U Status Risk Notes Problem 753156451 Obesity, unspecified (E66.9) Active confirmed Problem 806136974 alf (current) use of inhaled steroids (Z79.51) Active confirmed Problem Coronary artery disease (29256551) CAD (coronary artery disease) (I25.10) Active confirmed Problem Diabetes mellitus type 2 (disorder) (43282113) DM2 (diabetes mellitus, type 2) (E11.9) Active confirmed Problem Multiple pulmonary nodules (147576970) Multiple pulmonary nodules (R91.8) Active confirmed Problem Abnormal diffusion capacity determined by pulmonary function test (R94.2) Active confirmed Problem Calcified lymph nodes (527898482) Calcified lymph nodes (I89.8) Active confirmed Problem Body mass index 30.00 to 34.99 (4544904121387 07) Body mass index [BMI] 31.0-31.9, adult (Z68.31) Active confirmed Vital Signs Heart Rate 72 /min 09/19/2024 Temperature 97.1 degrees Fahrenheit 09/19/2024 Respiratory Rate 18 /min 09/19/2024 Oximetry 96 % 09/19/2024 Blood pressure diastolic 70 mm Hg 09/19/2024 Height 66.5 in 09/19/2024 Blood pressure systolic 131 mm Hg 09/19/2024 Weight 197.4 lbs 09/19/2024 BMI 31.38 kg/m2 09/19/2024 Procedures Procedure Date Ordered Date Performed Result Body Sit e PFT (43186, 62839, 56176) 05/23/2024 05/26/2024 N/A Encounters Encounter Location Date Provider Diagnosis [address] [address] 05/23/2024 [facility] [place] [address] [place] [address] 06/06/2024 [facility] Multiple pulmonary nodules R91.8 and Abnormal CXR R93.89 [facility] [address] [place] [address] 12/12/2024 [facility] Dyspnea, unspecified R06.00 [facility] [address] [place] [address] 12/13/2024 [facility] [address] [place] [address] 06/20/2024 [facility] Dyspnea, unspecified R06.00 ; Abnormal diffusion capacity determined by pulmonary function test R94.2 ; Multiple pulmonary nodules R91.8 ; Calcified lymph nodes I89.8 ; CAD (coronary artery disease) I25.10 ; DM2 (diabetes mellitus, type 2) E11.9 ; Obesity, unspecified E66.9 ; Body mass index [BMI] 31.0-31.9, adult Z68.31 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 Z79.51 [facility] [address] [place] [address] 09/19/2024 [facility] Dyspnea, unspecified R06.00 ; Abnormal diffusion capacity determined by pulmonary function test R94.2 ; Multiple pulmonary nodules R91.8 ; Calcified lymph nodes I89.8 ; DM2 (diabetes mellitus, type 2) E11.9 ; Encounter for immunization Z23 ; Obesity, unspecified E66.9 and alf (current) use of inhaled steroids Z79.51 [facility] [address] [place] [address] 05/23/2024 Maryjane Silva Dyspnea, unspecified R06.00 ; Other nonspecific abnormal finding of lung field R91.8 ; CAD (coronary artery disease) I25.10 ; DM2 (diabetes mellitus, type 2) E11.9 ; Obesity, unspecified E66.9 ; Body mass index [BMI] 31.0-31.9, adult Z68.31 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 Patient did not respond well to Breo. Began using albuterol on top of it, which she did not require while on Pulmicort. PFT is non-diagnostic, trending towards mild obstruction. She has mild CAD which I do not believe is a major factor. Chest CT is abnormal - may be atelectasis, or possible other cause such as ILD. Insurance would not cover Symbicort, but Breztri may be covered?!? I provided her with 2 Breztri samples to see if this helps. If there this resolves her symptoms, will continue it (if able). Return in 3 months for further evaluation. If no improvement, will discuss further w/up (e.g. labs, HRCT). 06/20/2024 Abnormal diffusion capacity determined by pulmonary function test (ICD-10 - R94.2) PFT 05/26/2024 DLCO is 55%. Unclear if this is because she only had 1 attempt that was utilized vs. an actual interstitial process that is impairing diffusion. HRCT is better for imaging ILD - may need to order a HRCT in the future if she remains symptomatic. 09/19/2024 Dyspnea, unspecified (ICD-10 - R06.00) Breztri [...] is 55%. Secondary to only 1 attempt? 05/23/2024 Dyspnea, unspecified (ICD-10 - R06.00) History per HPI. >6 month duration of dyspnea, coughing, and wheezing. Pulmicort 90, 1 puff BID helped, but remains symptomatic. Wheezes on exam. Suspicious for asthma. Recommended ordering PFT and CXR. Will change Pulmicort to Symbicort 160, 2 puffs BID (quadruples the ICS dose and adds LAMA). Patient will return back in 1 month to review testing and response to Symbicort. Further plan of care dependent on this information. NOTE: After patient left, she returned stating that Symbicort was not covered and was $150. Pharmacy states Breo is covered. Sending in Breo 100. 05/23/2024 Other nonspecific abnormal finding of lung field (ICD-10 - R91.8) CT abdomen/pelvis 12/24/2021 noted mild patchy linear opacities. They appeared non-specific when I reviewed the imaging. ? atelectasis. Ordering CXR as last done was 08/13/2021 which also showed similar findings (reviewed this imaging too). If ordered CXR appears abnormal, or coughing persists, may need chest CT (standard vs. HRCT). 06/06/2024 Multiple pulmonary nodules (ICD-10 - R91.8) 06/06/2024 Abnormal CXR (ICD-10 - R93.89) 12/12/2024 Dyspnea, unspecified (ICD-10 - R06.00) 05/23/2024 CAD (coronary artery disease) (ICD-10 - I25.10) F/U with [facility] Cardiology. 09/19/2024 Multiple pulmonary nodules (ICD-10 - R91.8) Presumptive old granulomatous disease. 06/20/2024 Multiple pulmonary nodules (ICD-10 - R91.8) Several pulmonary nodules, some calcified. No non-calcified nodules were apparent on soft tissue windows. This would be consistent with granulomatous disease and can be seen in pulmonary histoplasmosis, though I am not going to have that diagnosis listed without confirmatory data - by this time, attempting any biopsy or cultures would likely be fruitless with risks > benefits. 06/20/2024 Calcified lymph nodes (ICD-10 - I89.8) Most consistent with old granulomatous disease, likely related to pulmonary nodules. If further w/up is needed, can order CHUNG level to assess for sarcoidosis. 09/19/2024 Calcified lymph nodes (ICD-10 - I89.8) Most consistent with old granulomatous disease, along with pulmonary nodules. 05/23/2024 DM2 (diabetes mellitus, type 2) (ICD-10 - E11.9) Steroids prescribed for this patient's underlying pulmonary disease can adversely affect blood glucose levels, inducing hyperglycemia and worsening underlying diabetes. The patient is encouraged to follow up with the primary care provider to create a plan to manage diabetes in this situation. 05/23/2024 Obesity, unspecified (ICD-10 - E66.9) Patient's weight is inducing a restrictive pulmonary physiology. Weight loss indicated: Decrease calories, increase activity. 09/19/2024 DM2 (diabetes mellitus, type 2) (ICD-10 - E11.9) Steroids prescribed for this patient's underlying pulmonary disease can adversely affect blood glucose levels, inducing hyperglycemia and worsening underlying diabetes. The patient is encouraged to follow up with the primary care provider to create a plan to manage diabetes in this situation. 06/20/2024 CAD (coronary artery disease) (ICD-10 - I25.10) F/U with [facility] Cardiology. 06/20/2024 DM2 (diabetes mellitus, type 2) (ICD-10 - [...] Prevnar-20. Rx was sent to her pharmacy. 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 09/19/2024 Obesity, unspecified (ICD-10 - E66.9) Patient's weight is inducing a restrictive pulmonary physiology. Weight loss indicated: Decrease calories, increase activity. 06/20/2024 Obesity, unspecified (ICD-10 - E66.9) Patient's weight is inducing a restrictive pulmonary physiology. Weight loss indicated: Decrease calories, increase activity. 06/20/2024 Body mass index [BMI] 31.0-31.9, adult (ICD-10 - Z68.31) 09/19/2024 alf (current) use of inhaled steroids (ICD-10 - Z79.51) Patient was counseled to rinse & gargle with water after inhaled corticosteroid use. 06/20/2024 alf (current) use of inhaled steroids (ICD-10 - Z79.51) Patient was counseled to rinse & gargle with water after inhaled corticosteroid use. 06/20/[address] abdomen/pelvis 12/24/2021 noted mild patchy linear opacities. They appeared non-specific when I reviewed the imaging. ? atelectasis. Ordering CXR as last done was 08/13/2021 which also showed similar findings (reviewed this imaging too). If ordered CXR appears abnormal, or coughing persists, may need chest CT (standard vs. HRCT). 09/19/2024 Other Plan Of Treatment Next Appt Details Provider Name:Maryjane Silva, 09/25/2025 09:30:00 AM, [address] [place], [address], Insurance Providers Payer Name Payer Address Payer Phone Subscriber Number Group Number Insured Name Patient Relationship to Insured Coverage Start Date Coverage End Date MEDICARE [place] [address] [phone] [id number] Daya Ramsay Self - patient is the insured O MEDICARE SUPPLEMENT [address] [place] [address] [id number] Daya Ramsay Self - patient is the insured Medical (General) History Medical History History ICD Code CAD (coronary artery disease) I25.10 (aortic stenosis) I35.0 HTN (hypertension) I10 DM2 (diabetes mellitus, type 2) E11.9 HLD (hyperlipidemia) E78.5 Multiple pulmonary nodules R91.8 Calcified lymph nodes I89.8 Abnormal diffusion capacity determined b y pulmonary function test R94.2 Surgical History Surgery Date(Month/Year) tonsillectomy and adenoidectomy septoplasty section hysterectomy right knee arthroscopy appendectomy Cardiac Catheterization 04/03/2014
--- NOTE | 2025-05-10 14:00 | CA_ITS ---
Patient Name: JASON SAGASTUME MR#: [id number] : 1950 Exam Date: 05/10/2025 Ordering Doctor: DR GRAHAM FERGUSON M.D. ECHOCARDIOGRAM REPORT PROCEDURE: CA ECHO DOPPLER COMPLETE INDICATIONS: Dyspnea, congenital aortic disease COMPARISON: None. DESCRIPTION: COMPLETE ECHOCARDIOGRAM Real-time transthoracic echocardiography with 2D, M-mode, spectral and color flow Doppler performed. QUALITY: Technical quality was good. LEFT VENTRICLE: Normal chamber size. Proximal septal hypertrophy (sigmoid septum). Systolic function is normal. LV EF: Normal left ventricular ejection fraction, (55-60%). DIASTOLIC: Diastolic function is indeterminate. ATRIAL SEPTUM: Visually appears intact. LEFT ATRIUM: Normal chamber size. RIGHT ATRIUM: Normal chamber size. RIGHT VENTRICLE: Normal chamber size. Normal right ventricular systolic function. TRICUSPID VALVE: Normal mobility and thickness. No stenosis with no regurgitation. Unable to assess right-sided pressures due to lack of measurable tricuspid regurgitation. MITRAL VALVE: Normal mobility and thickness. No evidence of mitral valve stenosis. There is no mitral annular calcification. Trivial mitral regurgitation. AORTIC VALVE: Normal trileaflet appearance. Normal leaflet mobility. No evidence of aortic valve stenosis. Multifocal calcifications. No aortic regurgitation. AORTIC ROOT: Normal diameter and appearance, measuring 3.1 cm. Ascending aorta is normal in size, measuring 2.5 cm. PULMONIC VALVE: Normal thickness and mobility. No stenosis. Trivial regurgitation. PERICARDIUM: No evidence of pericardial effusion. IVC: Collapses with inspiration. PLEURA: CONCLUSION: 1. Normal left ventricular size and systolic function. Estimated LVEF is 55 to 60%. 2. Normal right ventricular size and systolic function. 3. No significant valvular dysfunction. 4. Unable to assess right-sided pressures due to lack of measurable tricuspid regurgitation. Adult Echocardiography Procedure Report Left Ventricle LVEDD (3.7 - 5.6 cm): 3.45 cm LVESD (2.2 - 4.0 cm): 2.42 cm LVIVS thickness (0.6 - 1.2 cm): 1.25 cm LVPW thickness (0.5 - 1.0 cm): 1.04 cm e': 0.09 m/s E - e': 10.42 LVOT Max Gradient: 4.87 mm[Hg] LVOT Area (cm2): 1.10 m/s Peak Velocity (LVOT): 1.10 m/s LVOT Diameter 2.07 cm Left Atrium LA Volume Index (2D A2C): 29.23 ml/m2 Left Atrium Systolic Dimension: 3.51 cm Mitral Valve MV E to A Ratio: 1 Mitral Valve A-Wave Peak Velocity: 0.92 m/s Mitral Valve E-Wave Peak Velocity: 0.92 m/s Right Ventricle Aorta AO Root Diam: 3.13 cm Ascending Ao Diam: 2.48 cm Aortic Valve AoV Area (Peak Valerio): 2.94 cm2, 2.94 cm2 Peak Velocity(Antegrade Flow): 1.26 m/s Peak Gradient(Antegrade Flow): 6.38 mm[Hg] Tricuspid Valve Pulmonic Valve Peak Gradient: 4.09 mm[Hg], 3.86 mm[Hg] Right Atrium Right Atrium Systolic Pressure: 44.17 ml, 44.17 ml Dictated by: Graham Ferguson M.D. on 05/10/2025 at 18:14 Approved by: Graham Ferguson M.D. on 05/10/2025 at 18:24
== END 2025-05-10 13:45 | disposition home or self-care (01) ==
PROVIDERS: PCP Nurse Practitioner; Visit Provider Internal Medicine Interventional Cardiology
DX: R06.02 Shortness of breath (principal); Q23.1 Congenital insufficiency of aortic valve
CPT/HCPCS: 93306